=== PATIENT | male | born 1955 | race Caucasian/White ===

== ENCOUNTER → 2019-05-11 10:34 | Outpatient (CLI) | payer MEDICARE, SELFPAY ==
--- NOTE | 2019-05-11 10:38 | MR_ITS ---
PROCEDURE: MR HEAD/BRAIN WO/W CON CLINICAL INDICATION: MATHEW'S PALSY, HEADACHE Right-sided facial drooping, headache COMPARISON: No exams were available for comparison TECHNIQUE: Routine multiplanar multi echo sequences are performed without and with gadolinium enhancement. FINDINGS: No midline shift, mass effect, intracranial hemorrhage, or hydrocephalus is evident. No evidence of acute infarction. There is only minimal periventricular T2 white matter hyperintensity. Cerebellopontine angles, cerebellum, and brainstem are unremarkable. Mildly prominent draining vein is noted in the right anterior parietal lobe consistent with an incidental developmental venous anomaly. The pituitary, optic chiasm, corpus callosum, and craniocervical junction have an unremarkable appearance. No mastoid effusion or sinus air-fluid level. IMPRESSION: 1. No acute intracranial finding. 2. Small developmental venous anomaly in the right parietal lobe as an incidental finding Dictated by: Brent Onofre MD 05/12/2019 12:57 Electronically signed by Brent Onofre MD in [place] 05/12/2019 12:57
--- NOTE | 2019-05-11 11:32 | HMH.ITSHM ---
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 []ASPIRIN ATENOLOL ATORVASTATIN HYDROCHLOROTHIAZIDE ISOSORBIDE MONONITRATE MAGNESIUM MELOXICAM TAMSULOSIN TRAMADOL URINOZINE PLUS VITAMIN C
== END ==
PROVIDERS: PCP Internal Medicine Adolescent Medicine; Visit Provider Nurse Practitioner Family
DX: R51 Headache (principal); G51.0 Bell's palsy
CPT/HCPCS: 70553; A9576

== ENCOUNTER → 2020-03-07 08:51 | Outpatient (CLI) | payer MEDICARE, SELFPAY ==
--- NOTE | 2020-03-07 08:55 | XR_ITS ---
PROCEDURE: XR KNEE RT 3V CLINICAL INDICATION: R ANTERIOR KNEE PAIN COMPARISON: No exams were available for comparison FINDINGS: Mild osteoarthritic changes are present involving the medial compartment and patellofemoral joint. No fracture or dislocation. No lytic or blastic change. Nonspecific soft tissue calcification noted in the pretibial region proximally which could be due to phleboliths. IMPRESSION: Mild osteoarthritis. Dictated by: Brent Onofre MD 03/07/2020 17:42 Brent Onofre MD in [facility] 03/07/2020 17:42
== END ==
PROVIDERS: PCP Nurse Practitioner Family; Visit Provider Nurse Practitioner Family
DX: M25.561 Pain in right knee (principal)
CPT/HCPCS: 73562

== ENCOUNTER → 2020-06-30 08:48 | Outpatient (CLI) | payer MEDICARE, SELFPAY ==
--- NOTE | 2020-06-30 08:56 | XR_ITS ---
PROCEDURE: XR CHEST 2V CLINICAL HISTORY: SOB,CHEST PAIN AT REST COMPARISON: CR CXR CHEST(2 VIEWS-NOT PORTABLE) from 09/16/2014 CR CXR2V XR chest 2V from 07/18/2018 FINDINGS: The cardiomediastinal silhouette and pulmonary vascularity are within normal limits. COPD changes. No lobar consolidation or collapse evident. Increased density is present just to the left of the aortic knob and may be due to summation density from the overlying rib Degenerative changes thoracic spine IMPRESSION: No acute findings. Dictated by: Brent Onofre MD 06/30/2020 15:52 Brent Onofre MD in [facility] 06/30/2020 15:52
== END ==
PROVIDERS: PCP Internal Medicine Adolescent Medicine; Visit Provider Nurse Practitioner Family
DX: R06.02 Shortness of breath (principal); R07.9 Chest pain, unspecified
CPT/HCPCS: 71046

== ENCOUNTER → 2021-02-28 12:49 | Outpatient (CLI) | payer MEDICARE, SELFPAY ==
[2021-02-28 13:28] LABS: Basophils # 0.1 K/mm3 (0-0.2); Basophils % 0.6 % (0.1-2.0); Eosinophils # 0.1 K/mm3 (0.0-0.4); Eosinophils % 0.5 % (0.1-12.0); Hematocrit 46.3 % (42.0-52.0); Hemoglobin 15.4 g/dL (14.1-18.0); Lymphocytes # 2.1 K/mm3 (0.7-4.5); Lymphocytes % 20.7 % (10-50); Mean Corpuscular HGB Conc 33.3 g/dL (31.8-35.4); Mean Corpuscular Hemoglobin 31.3 pg (27.0-31.2); Mean Corpuscular Volume 94.2 fl (80-94); Mean Platelet Volume 7.2 fl (7.4-10.4); Monocytes # 0.5 K/mm3 (0.1-1.0); Monocytes % 4.8 % (1.7-9.3); Neutrophils # 7.5 K/mm3 (1.8-7.8); Neutrophils % 73.3 % (37.0-80.0); Platelet Count 194 K/mm3 (142-424); Red Blood Count 4.92 M/mm3 (4.60-6.20); Red Cell Distribution Width 13.9 % (11.5-17.5); White Blood Count 10.2 K/mm3 (4.8-10.8)
[2021-02-28 15:03] LABS: Chloride 97 mmol/L (98-107)
[2021-02-28 15:04] LABS: Potassium 4.3 mmoL/L (3.5-5.1); Sodium 136 mmol/L (136-145)
[2021-02-28 15:06] LABS: Alanine Aminotransferase 20 U/L (12-78); Alkaline Phosphatase 58 U/L (38-126); Anion Gap 14.3 mEq/L (5-15); Aspartate Amino Transferase 28 U/L (17-59); Bilirubin,Total 0.7 mg/dl (0.2-1.3); Blood Urea Nitrogen 34 mg/dl (9-20); Carbon Dioxide 29 mmol/L (22.0-30.0); Estimated Glomerular Filt Rate 61 ml/min (>60); GFR (African American) 73 ML/MIN (>60)
[2021-02-28 15:07] LABS: Albumin/Globulin Ratio 1.5 (1.1-1.8); Calcium 8.7 mg/dl (8.4-10.2); Globulin 2.6 g/dL (1.3-3.2); Glucose 110 mg/dl (74-100); Total Protein,Serum 6.6 g/dl (6.3-8.2)
[2021-02-28 15:35] LABS: Troponin I < 0.01 ng/ml (0.00-0.034)
== END ==
PROVIDERS: Visit Provider Nurse Practitioner Family
DX: R07.9 Chest pain, unspecified (principal); R06.02 Shortness of breath
CPT/HCPCS: 36415; 80053; 84484; 85025

== ENCOUNTER → 2021-03-09 08:47 | Outpatient (CLI) | payer MEDICARE, SELFPAY ==
--- NOTE | 2021-03-09 08:50 | FL_ITS ---
PROCEDURE: FL UPPER GI W AIR CLINICAL INDICATION: DYSPEPSIA COMPARISON: No exams were available for comparison TECHNIQUE: FLUOROSCOPY TIME : 1 minutes and 44 seconds FINDINGS: The esophagus, stomach, and duodenum have an unremarkable appearance.There is no evidence of hiatal hernia. No ulcer or mass evident. No mucosal abnormalities apparent. There is normal peristalsis. There is a small duodenal diverticulum projecting superiorly along the transverse portion of the duodenum IMPRESSION: Small duodenal diverticulum otherwise negative upper GI Dictated by: Brent Onofre MD 03/09/2021 12:35 Brent Onofre MD in [place] 03/09/2021 12:35
== END ==
PROVIDERS: PCP Internal Medicine Adolescent Medicine; Visit Provider Nurse Practitioner Family
DX: R10.13 Epigastric pain (principal)
CPT/HCPCS: 74246

== ENCOUNTER → 2021-06-01 08:51 | Outpatient (CLI) | payer MEDICARE, SELFPAY ==
[2021-06-01 09:41] LABS: Basophils # 0.1 K/mm3 (0-0.2); Basophils % 0.7 % (0.1-2.0); Eosinophils # 0.1 K/mm3 (0.0-0.4); Eosinophils % 0.8 % (0.1-12.0); Hemoglobin 15.4 g/dL (14.1-18.0); Lymphocytes # 2.3 K/mm3 (0.7-4.5); Lymphocytes % 19.4 % (10-50); Mean Corpuscular HGB Conc 32.8 g/dL (31.8-35.4); Mean Corpuscular Hemoglobin 31.6 pg (27.0-31.2); Mean Corpuscular Volume 96.3 fl (80-94); Mean Platelet Volume 7.6 fl (7.4-10.4); Monocytes # 0.8 K/mm3 (0.1-1.0); Monocytes % 6.5 % (1.7-9.3); Neutrophils # 8.8 K/mm3 (1.8-7.8); Neutrophils % 72.7 % (37.0-80.0); Platelet Count 179 K/mm3 (142-424); Red Blood Count 4.88 M/mm3 (4.60-6.20); Red Cell Distribution Width 13.9 % (11.5-17.5); White Blood Count 12.1 K/mm3 (4.8-10.8)
[2021-06-01 10:40] LABS: Alanine Aminotransferase 24 U/L (12-78); Albumin/Globulin Ratio 1.6 (1.1-1.8); Alkaline Phosphatase 54 U/L (38-126); Anion Gap 10.8 mEq/L (5-15); Aspartate Amino Transferase 26 U/L (17-59); Bilirubin,Total 0.8 mg/dl (0.2-1.3); Blood Urea Nitrogen 28 mg/dl (9-20); Calcium 9.2 mg/dl (8.4-10.2); Carbon Dioxide 31 mmol/L (22.0-30.0); Chloride 96 mmol/L (98-107); Chol/HDL Ratio 2.8 (1-3.5); Cholesterol 130 mg/dl (140-200); Estimated Glomerular Filt Rate 67 ml/min (>60); GFR (African American) 81 ML/MIN (>60); Globulin 2.5 g/dL (1.3-3.2); Glucose 99 mg/dl (74-100); HDL Cholesterol 46 mg/dl (40-60); Potassium 4.8 mmoL/L (3.5-5.1); Sodium 133 mmol/L (136-145); Total Protein,Serum 6.5 g/dl (6.3-8.2); Triglycerides 86 mg/dl (30-150); VLDL Cholesterol 17 mg/dL (0-40)
[2021-06-01 10:49] LABS: NT Pro Brain Natriuretic Pep. 82.8 pg/mL (0-125)
[2021-06-01 10:51] LABS: Direct LDL Cholesterol 69.45 mg/dL (100-129)
[2021-06-01 11:29] LABS: Vitamin B12 553 pg/mL (239-931)
== END ==
PROVIDERS: Visit Provider Nurse Practitioner Family
DX: I50.32 Chronic diastolic (congestive) heart failure (principal); I25.10 Atherosclerotic heart disease of native coronary artery without angina pectoris; I10 Essential (primary) hypertension; E53.8 Deficiency of other specified B group vitamins
CPT/HCPCS: 36415; 80053; 80061; 82607; 83880; 85025

== ENCOUNTER 2021-08-12 13:30 | Emergency (ER) | payer MEDICARE, SELFPAY ==
--- NOTE | 2021-08-12 13:30 | ECG_ITS ---
APPROVED REPORT Exam: Resting ECG HR:66 bpm ECG Measurements Heart Rate 66 AXES IN 165 P 12 QRSd 89 QRS -18 QT 380 T 42 QTc 393 Conclusion SINUS RHYTHM NORMAL ECG UNCONFIRMED REPORT Electronically signed by : Steven Keating MD 08/13/2021 15:33:21
[2021-08-12 13:32] VITALS: BP 128/78; PULSE 66; RESP 18; TEMP 36.9; O2SAT 97; BMI 42.5
[2021-08-12 13:36] VITALS: BMI 42.5
--- NOTE | 2021-08-12 13:36 | XR_ITS ---
PROCEDURE INFORMATION: Exam: XR Chest Exam date and time: 08/12/2021 1:36 PM Age: 66 years old Clinical indication: Pain; Left-sided; Additional info: Chest pain TECHNIQUE: Imaging protocol: XR of the chest. Views: 2 views. COMPARISON: CR XR CHEST 2V 06/30/2020 9:14 AM FINDINGS: Airway: Patent Lungs: Low lung volumes causes crowding of the bronchovascular structures. No acute interstitial or airspace disease. COPD/emphysema is appreciated. Pleural spaces: Unremarkable. No pleural effusion. No pneumothorax. Heart/Mediastinum: Unremarkable. No cardiomegaly. Bones/joints: No acute skeletal abnormality or aggressive osseous lesion. IMPRESSION: No acute thoracic pathology.
[2021-08-12 13:49] LABS: Chloride 98 mmol/L (98-107); Sodium 132 mmol/L (136-145)
[2021-08-12 13:52] LABS: Blood Urea Nitrogen 18 mg/dl (9-20); Carbon Dioxide 27 mmol/L (22.0-30.0); Creatinine Clearance Estimated 69 mL/min (50-200); Estimated Glomerular Filt Rate 75 ml/min (>60); GFR (African American) 90 ML/MIN (>60)
--- NOTE | 2021-08-12 13:52 | HMH.EDGENADL ---
ED Disposition Clinical Impression: Chest wall pain Disposition: Home, Self-Care Condition on Discharge: Good Instructions: DI for Atypical Chest Pain Prescriptions: methocarbamoL [Methocarbamol 500mg Tablet] 1,000 mg PO TID 10 Days #60 tab Transmission Status: Pending to [facility] Referrals: Provider,Referral, [Referring] - - Critical Care Critical Care Time: No Attestation: On 08/12/21, the high probability of a clinically significant, sudden or life threatening deterioration of the following system(s) required my full and direct attention, intervention and personal management. The time I documented below is in addition to time spent performing reported procedures but includes the following listed in this critical care notation. Medical Decision Making - Medical Records Medical records reviewed: Yes: I reviewed the patient's medical records. - Duarte Inquiry Pt receiving controlled substance: Yes Duarte was queried for this patient: No Reason not queried -: Duarte login issues Risks and benefits of using a controlled substance: were discussed with pt by me Vital Signs: 08/12/21 13:32 Temperature 98.5 F Temperature Source Oral Pulse Rate [Left Radial] 66 Respiratory Rate 18 Blood Pressure [Right Arm] 128/78 Blood Pressure Mean [Right Arm] 94 Blood Pressure Source [Right Arm] Automatic Cuff Blood Pressure Position [Right Arm] Sitting 02 Sat by Pulse Oximetry 97 Oxygen Delivery Method Room Air - Lab Data Lab Results 08/12/21 13:37: WBC 9.7, RBC 5.16, Hgb 16.3, Hct 49.4, MCV 95.8 H, MCH 31.5 H, MCHC 32.9, RDW 13.7, Plt Count 190, MPV 7.8, Neut % (Auto) 73.5, Lymph % (Auto) 19.1, [place] % (Auto) 5.4, Eos % (Auto) 1.0, Baso % (Auto) 1.0, Neut # (Auto) 7.2, Lymph # (Auto) 1.9, [place] # (Auto) 0.5, Eos # (Auto) 0.1, Baso # (Auto) 0.1 08/12/21 13:37: Sodium 132 L, Potassium 4.0, Chloride 98, Carbon Dioxide 27, Anion Gap 11.0, BUN 18, Creatinine 1.00, Estimated Creat Clear 69, Estimated GFR 75, Est GFR ( Amer) 90, Glucose 104 H, Calcium 8.6, Troponin I < 0.01 08/12/21 13:37: NT-Pro-B Natriuret Pep 74.5 Result diagrams: 08/12/21 13:37 08/12/21 13:37 Orders (Tests/Meds): ED MEDICATIONS Generic Name Dose Route Start Last Admin Trade Name Freq PRN Reason Stop Dose Admin Sodium Chloride 10 ml 08/12/21 13:36 08/12/21 13:45 Sodium Chloride 0.9% 10ml Flush Syringe IV 09/11/21 13:35 10 ml NEEDED PRN Administration Maintain IV Site Discontinued Medications Generic Name Dose Route Start Last Admin Trade Name Freq PRN Reason Stop Dose Admin Morphine Sulfate 4 mg 08/12/21 13:42 08/12/21 13:45 Morphine 4mg/Ml Syringe IV 08/12/21 13:43 4 mg ONCE ONE Administration Ondansetron HCl 4 mg 08/12/21 13:42 08/12/21 13:45 Ondansetron 4mg/2ml Vial IV 08/12/21 13:43 4 mg ONCE ONE Administration ORDERS Category Date Time Status Troponin I Q3H Lab 08/12/21 16:45 Ordered Troponin I Q3H Lab 08/12/21 19:45 Ordered - Radiology Data #1 Image(s): Chest Image Reviewed: Yes I reviewed the patient's radiology results, Yes I reviewed the patient's radiology image, Yes I have reviewed radiologist's interpretation Preliminary Findings: Normal/NAD - ECG Data Tracing #1 I reviewed this ECG and interpreted as documented below: ECG initial impression date: 08/12/21 ECG initial impression time: 13:30 ECG normal with no acute: arrhythmias, ischemia, conduction abnormalities, chamber hypertrophy Normal Sinus Rhythm: Yes - Reevaluation(s) Time: 14:40 Reevaluation #1: On reevaluation, the patient is feeling much better. Repeat exam shows improved pain. Negative troponin. No EKG changes. I do believe this is muscular in nature. Patient will follow up with his primary physician as well as cardiology. Given strict return precautions. Verbalized understanding. Medical Decision Narrative: 66-year-old male presented to the emergency d
[2021-08-12 13:53] LABS: Calcium 8.6 mg/dl (8.4-10.2); Glucose 104 mg/dl (74-100)
[2021-08-12 14:06] LABS: NT Pro Brain Natriuretic Pep. 74.5 pg/mL (0-125)
[2021-08-12 14:13] LABS: Troponin I < 0.01 ng/ml (0.00-0.034)
[2021-08-12 14:32] LABS: Basophils # 0.1 K/mm3 (0-0.2); Eosinophils # 0.1 K/mm3 (0.0-0.4); Hematocrit 49.4 % (42.0-52.0); Hemoglobin 16.3 g/dL (14.1-18.0); Lymphocytes # 1.9 K/mm3 (0.7-4.5); Lymphocytes % 19.1 % (10-50); Mean Corpuscular HGB Conc 32.9 g/dL (31.8-35.4); Mean Corpuscular Hemoglobin 31.5 pg (27.0-31.2); Mean Corpuscular Volume 95.8 fl (80-94); Mean Platelet Volume 7.8 fl (7.4-10.4); Monocytes # 0.5 K/mm3 (0.1-1.0); Monocytes % 5.4 % (1.7-9.3); Neutrophils # 7.2 K/mm3 (1.8-7.8); Neutrophils % 73.5 % (37.0-80.0); Platelet Count 190 K/mm3 (142-424); Red Blood Count 5.16 M/mm3 (4.60-6.20); Red Cell Distribution Width 13.7 % (11.5-17.5); White Blood Count 9.7 K/mm3 (4.8-10.8)
[2021-08-12 14:49] VITALS: BP 121/74; PULSE 68; RESP 18; TEMP 36.9; O2SAT 99
== END 2021-08-12 14:50 | disposition home or self-care (01) ==
PROVIDERS: Emergency Provider Emergency Medicine; PCP Nurse Practitioner Family
DX: R07.89 Other chest pain (principal); Z79.1 Long term (current) use of non-steroidal anti-inflammatories (NSAID); Z79.82 Long term (current) use of aspirin; Z79.899 Other long term (current) drug therapy
CPT/HCPCS: 71046; 80048; 83880; 84484; 85025; 93005; 96374; 96375; 99283; J2405

== ENCOUNTER 2021-12-25 18:24 | Emergency (ER) | payer MEDICARE, SELFPAY ==
[2021-12-25] VITALS (13 sets, daily range): BP systolic 101–134; BP diastolic 67–88; PULSE 66–81; RESP 16–20; TEMP 36.6–36.9; O2SAT 92–99; BMI 41.3
--- NOTE | 2021-12-25 18:17 | ECG_ITS ---
APPROVED REPORT Exam: Resting ECG HR:81 bpm ECG Measurements Heart Rate 81 AXES TN 161 P 65 QRSd 86 QRS -16 QT 358 T 13 QTc 396 Conclusion SINUS RHYTHM NORMAL ECG UNCONFIRMED REPORT Electronically signed by : Steven Keating MD 12/27/2021 21:04:54
--- NOTE | 2021-12-25 18:39 | XR_ITS ---
PROCEDURE INFORMATION: Exam: XR Chest Exam date and time: 12/25/2021 7:06 PM Age: 66 years old Clinical indication: Shortness of breath; Additional info: SOA, chest pressure TECHNIQUE: Imaging protocol: Radiologic exam of the chest. Views: 2 views. COMPARISON: CR XR CHEST 2V 08/12/2021 1:43 PM FINDINGS: Airway: Patent Lungs: Bilateral perihilar haziness and streaky-like opacities. Mild segmental bronchial wall thickening. No large airspace consolidations. Pleural spaces: Left costophrenic angle not completely included. No large pleural effusions or pneumothorax. Heart/Mediastinum: Unremarkable. No cardiomegaly. Bones/joints: No acute skeletal abnormality or aggressive osseous lesion. IMPRESSION: Acute bronchitis/mild viral illness. No evidence of lobar pneumonia at this time.
[2021-12-25 18:51] LABS: Chloride 101 mmol/L (98-107); Sodium 137 mmol/L (136-145)
[2021-12-25 18:52] LABS: Basophils # 0.1 K/mm3 (0-0.2); Basophils % 0.4 % (0.1-2.0); Eosinophils % 0.4 % (0.1-12.0); Hematocrit 48.7 % (42.0-52.0); Hemoglobin 16.7 g/dL (14.1-18.0); Lymphocytes # 2.3 K/mm3 (0.7-4.5); Mean Corpuscular HGB Conc 34.3 g/dL (31.8-35.4); Mean Corpuscular Hemoglobin 31.6 pg (27.0-31.2); Mean Corpuscular Volume 92.2 fl (80-94); Mean Platelet Volume 7.5 fl (7.4-10.4); Monocytes # 0.8 K/mm3 (0.1-1.0); Monocytes % 6.3 % (1.7-9.3); Neutrophils % 73.9 % (37.0-80.0); Platelet Count 102 K/mm3 (142-424); Red Blood Count 5.29 M/mm3 (4.60-6.20); Red Cell Distribution Width 13.8 % (11.5-17.5); White Blood Count 12.2 K/mm3 (4.8-10.8)
[2021-12-25 18:54] LABS: Blood Urea Nitrogen 22 mg/dl (9-20); Creatinine Clearance Estimated 72 mL/min (50-200); Estimated Glomerular Filt Rate 75 ml/min (>60); GFR (African American) 90 ML/MIN (>60)
[2021-12-25 18:55] LABS: Calcium 9.3 mg/dl (8.4-10.2); Carbon Dioxide 29 mmol/L (22.0-30.0); Glucose 140 mg/dl (74-100)
[2021-12-25 19:09] LABS: Troponin I 0.57 ng/ml (0.00-0.034)
--- NOTE | 2021-12-25 19:10 | PC.NURSE ---
notified of critical troponin
[2021-12-25 19:54] LABS: NT Pro Brain Natriuretic Pep. 3340 pg/mL (0-125)
[2021-12-25 20:35] LABS: Influenza B, PCR Not Detected (NotDetected)
[2021-12-25 20:37] LABS: Influenza A, PCR Not Detected (NotDetected)
--- NOTE | 2021-12-25 20:37 | HMH.EDCP ---
ED Disposition Clinical Impression: Unstable angina pectoris, Non-STEMI (non-ST elevated myocardial infarction), COVID-19 Syncopal episodes Qualifiers: Syncope type: unspecified Qualified Code(s): R55 - Syncope and collapse Obesity Qualifiers: Obesity type: due to excess calories Obesity classification: adult class 3 (BMI >= 40) Serious obesity comorbidity presence: with serious comorbidity Body mass index: BMI 40.0-44.9 Qualified Code(s): E66.01 - Morbid (severe) obesity due to excess calories; Z68.41 - Body mass index [BMI] 40.0-44.9, adult Disposition: Xfer Short-Term Hosp Condition on Discharge: Serious Referrals: Mali Hancock APRN [Primary Care Provider] - - Critical Care Critical Care Time: No Attestation: On 12/25/21, the high probability of a clinically significant, sudden or life threatening deterioration of the following system(s) required my full and direct attention, intervention and personal management. The time I documented below is in addition to time spent performing reported procedures but includes the following listed in this critical care notation. Medical Decision Making - Medical Records Medical records reviewed: Yes: I reviewed the patient's medical records. - Duarte Inquiry Pt receiving controlled substance: No Vital Signs: 12/25/21 18:25 12/25/21 18:30 12/25/21 19:00 Temperature 97.8 F Temperature Source Oral Pulse Rate 81 70 Pulse Rate [Left Radial] 80 Respiratory Rate 18 17 18 Blood Pressure 101/70 L 113/72 Blood Pressure [Right Arm] 110/77 Blood Pressure Mean 82 80 Blood Pressure Mean [Right Arm] 88 Blood Pressure Source [Right Arm] Automatic Cuff Blood Pressure Position [Right Arm] Sitting 02 Sat by Pulse Oximetry 97 95 96 Oxygen Delivery Method Room Air - Lab Data Lab results reviewed: Yes: I reviewed the patient's lab results. Lab Results 12/25/21 18:25: WBC 12.2 H, RBC 5.29, Hgb 16.7, Hct 48.7, MCV 92.2, MCH 31.6 H, MCHC 34.3, RDW 13.8, Plt Count 102 L, MPV 7.5, Neut % (Auto) 73.9, Lymph % (Auto) 19.0, [place] % (Auto) 6.3, Eos % (Auto) 0.4, Baso % (Auto) 0.4, Neut # (Auto) 9.0 H, Lymph # (Auto) 2.3, [place] # (Auto) 0.8, Eos # (Auto) 0.0, Baso # (Auto) 0.1 12/25/21 18:25: Sodium 137, Potassium 4.0, Chloride 101, Carbon Dioxide 29, Anion Gap 11.0, BUN 22 H, Creatinine 1.00, Estimated Creat Clear 72, Estimated GFR 75, Est GFR ( Amer) 90, Glucose 140 H, Calcium 9.3, Troponin I 0.57 H 12/25/21 18:25: NT-Pro-B Natriuret Pep 3340 H 12/25/21 20:35: SARS-CoV-2 (PCR) Detected A, Influenza A Untype (PCR) Not detected, Influenza Type B (PCR) Not detected Result diagrams: 12/25/21 18:25 12/25/21 18:25 Orders (Tests/Meds): ED MEDICATIONS Generic Name Dose Route Start Last Admin Trade Name Freq PRN Reason Stop Dose Admin Heparin Sodium/Dextrose 500 mls @ 20 mls/hr 12/25/21 21:45 Heparin 25,000 Units In D5w 500ml Premix IV 01/24/22 21:44 .Q25H KENNETH 1,000 UNITS/HR Sodium Chloride 10 ml 12/25/21 18:40 Sodium Chloride 0.9% 10ml Flush Syringe IV 01/24/22 18:39 NEEDED PRN Maintain IV Site Discontinued Medications Generic Name Dose Route Start Last Admin Trade Name Freq PRN Reason Stop Dose Admin Aspirin 243 mg 12/25/21 19:29 12/25/21 19:46 Aspirin 81mg Chewable Tablet PO 12/25/21 19:30 243 mg ONCE ONE Administration Heparin Sodium (Porcine) 4,000 unit 12/25/21 21:45 Heparin Sodium 5,000 Unit/Ml Vial IV 12/25/21 21:46 ONCE ONE Nitroglycerin 1 gm 12/25/21 20:53 12/25/21 20:54 Nitroglycerin 1 Gm Ointment TD 12/25/21 20:54 1 gm ONCE ONE Administration ORDERS Category Date Time Status Activated Partial Thrombo Time Stat Lab 12/25/21 18:25 Received PT/INR [Prothrombin Time INR] Stat Lab 12/25/21 18:25 Received PTT [Activated Partial Thrombo Time] Stat Lab 12/25/21 21:34 Stop Req Troponin I Q3H Lab 12/25/21 21:45 Ordered Troponin I Q3H Lab 12/26/21 00:45 Ordered
[2021-12-25 21:17] LABS: Coronavirus 19, PCR Detected (NotDetected)
--- NOTE | 2021-12-25 21:21 | PC.NURSE ---
Spoke with Kamila from the [facility] she is paging Dr. Noe Paul at this time
--- NOTE | 2021-12-25 21:26 | PC.NURSE ---
ER speaking with Dr. Lee at this time
--- NOTE | 2021-12-25 21:45 | PC.NURSE ---
[facility] center called with bed assignment for pt. [facility]IC. Call [phone].
--- NOTE | 2021-12-25 21:46 | PC.NURSE ---
Called night watch, s/w Soniya, for Heparin bolus and gtt dosing. Bolus 4,000 units IVP, gtt 1,000 units /hr (20ml/hr)
[2021-12-25 21:52] LABS: Activated Partial Thrombo Time 27.9 seconds (22.8-30.6); INR 1.03 (0.9-1.1); Prothrombin Time 11.6 seconds (10.1-12.5)
--- NOTE | 2021-12-25 22:15 | PC.NURSE ---
Report given to Alisa @ [facility]
[2021-12-25 23:00] LABS: Troponin I 0.36 ng/ml (0.00-0.034)
== END 2021-12-25 23:41 | disposition short-term general hospital (02) ==
PROVIDERS: Emergency Medicine; Emergency Provider Emergency Medicine; PCP Nurse Practitioner Family
DX: U07.1 COVID-19 (principal); I20.0 Unstable angina; I21.4 Non-ST elevation (NSTEMI) myocardial infarction; E66.01 Morbid (severe) obesity due to excess calories; Z68.41 Body mass index [BMI] 40.0-44.9, adult; Z79.82 Long term (current) use of aspirin; Z79.899 Other long term (current) drug therapy
CPT/HCPCS: 71046; 80048; 83880; 84484; 85025; 85610; 85730; 93005; 96365; 96366; 96375; 99284; C9803; U0003; U0005

== ENCOUNTER 2023-12-27 04:04 | Inpatient (IN) | payer MEDICARE, SELFPAY ==
[2023-12-27] VITALS (11 sets, daily range): BP systolic 121–190; BP diastolic 70–106; PULSE 71–117; RESP 18–20; TEMP 36.7–38.4; O2SAT 93–98; BMI 35.6
--- OUTSIDE RECORDS SUMMARY | 2023-12-27 04:12 | XMS_ITS | Clinical Summary ---
Author Name Unknown Address [address] [place] [address] Phone Organization [facility] Address [address] [place] [address] Phone Care Team Providers Care Bottle Booth Attendant Name Role Phone Bernabe STOKES, Thiago Martinez [phone] Conditions or Problems No information available. Medications No information available. Medications Administered No information available. Allergies, Adverse Reactions, Alerts No information available. Results No information available. Plan of Care No information available. Procedures No information available. Vital Signs No information available. Immunizations No information available. Advance Directives No information available.
--- OUTSIDE RECORDS SUMMARY | 2023-12-27 04:12 | XMS_ITS ---
Author Name Unknown Organization 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 Gr. >=1.030 Ketone neg Bili neg Glucose 500mg COMPREHENSIVE METABOLIC PANE L (23234) Reviewed date:12/25/2023 10:23:45 AM Interpretation: Performing Lab:CB, [facility] [address], [id number] Lito Tobar Notes/Report: NON-FASTING; NON-FASTING; NON-FASTING GLUCOSE 81 65-99 mg/dL Fasting reference interval UREA NITROGEN (BUN) 10 7-25 mg/dL CREATININE 0.65 0.70-1.35 mg/dL EGFR 102 > OR = 60 mL/min/1.73m2 BUN/CREATININE RATIO 15 6-22 (calc) SODIUM 139 135-146 mmol/L POTASSIUM 3.5 3.5-5.3 mmol/L CHLORIDE 101 98-110 mmol/L CARBON DIOXIDE 26 20-32 mmol/L CALCIUM 8.9 8.6-10.3 mg/dL PROTEIN, TOTAL 6.1 6.1-8.1 g/dL ALBUMIN 3.6 3.6-5.1 g/dL GLOBULIN 2.5 1.9-3.7 g/dL (calc) ALBUMIN/GLOBULIN RATIO 1.4 1.0-2.5 (calc) BILIRUBIN, TOTAL 1.0 0.2-1.2 mg/dL ALKALINE PHOSPHATASE 56 35-144 U/L AST 15 10-35 U/L ALT 12 9-46 U/L CBC (INCLUDES DIFF/PLT) (639 9) Reviewed date:12/25/2023 10:23:45 AM Interpretation: Performing Lab:[email or web address], [id number] Lito Tobar Notes/Report: NON-FASTING; NON-FASTING; NON-FASTING WHITE BLOOD CELL COUNT 7.3 3.8-10.8 Thousand/ uL RED BLOOD CELL COUNT 4.33 4.20-5.80 Million/uL HEMOGLOBIN 13.1 13.2-17.1 g/dL HEMATOCRIT 42.7 38.5-50.0 % MCV 98.6 80.0-100.0 fL MCH 30.3 27.0-33.0 pg MCHC 30.7 32.0-36.0 g/dL RDW 14.9 11.0-15.0 % PLATELET COUNT 192 140-400 Thousand/uL MPV 10.1 7.5-12.5 fL ABSOLUTE NEUTROPHILS [phone] cells/uL ABSOLUTE LYMPHOCYTES 3788 724-2937 cells/uL ABSOLUTE MONOCYTES 482 200-950 cells/uL ABSOLUTE EOSINOPHILS 190 15-500 cells/uL ABSOLUTE BASOPHILS 37 0-200 cells/uL NEUTROPHILS 67.1 LYMPHOCYTES 23.2 MONOCYTES 6.6 EOSINOPHILS 2.6 BASOPHILS 0.5 CULTURE, URINE, ROUTINE (395 ) Reviewed date:12/25/2023 10:23:45 AM Interpretation: Performing Lab:[email or web address] [employer], [id number] Lito Tobar Notes/Report: NON-FASTING; NON-FASTING; NON-FASTING CULTURE, URINE, ROUTINE SEE NOTE CULTURE, URINE, ROUTINE Micro Number: [id number] Test Status: Final Specimen Source: Urine, clean catch Specimen Quality: Adequate Result: No Growth REASON FOR VISIT hospital f/u discharged 12/18/2023 from [facility], dysuria, fluid build-up MEDICATIONS Medication SIG (Take, Route, Frequency, Duration) Notes Start Date End Date Status Vitamin C 500 mg 2 cap orally once a day Active Tylenol 500 mg 2 tab(s) orally prn Active nitroglycerin 0.4 mg 1 tab(s) sublingual ly every 5 minutes prn for 30 days Active cyclobenzaprine 5 mg 1 tab(s) orally at HS for 2 weeks 08/16/2016 Active Syringe 1cc 28g 06/11 - for 30 days 03/13/2021 Active carvedilol 6.25 mg 1 tab(s) orally 2 ti mes a day Active Jardiance 25 mg 1 tab(s) orally once a day (in the morning) Active Flomax 0.4MG 1 capsule orally onc e a day for 90 days Active Lipitor 40 mg 1 tab(s) orally once a day for 90 days Active Dodex 1000 mcg/mL INJECT 1000MCG (1ML) INTRAMUSCULARLY ONCE A MONTH for 90 Active Xarelto 20 mg TAKE 1 TABLET ONE TI ME DAILY WITH FOOD for 90 Active omeprazole 20 mg 2 caps orally once a day for 90 days Active traMADol 50 mg 1 tab(s) orally 3 ti mes a day prn for 90 days prn 02/14/2023 Active isosorbide mononitrate 60 mg TAKE ONE TABLET BY MOUTH EVERY DAY orally once a day for 90 days Active VITAL SIGNS Temperature 97.4 degrees Fahrenheit 12/23/19 24 Blood pressure systolic 144 mm Hg 12/23/19 24 Blood pressure diastolic 82 mm Hg 024 Heart Rate 78 /min 12/23/2023 Height 5 ft 9 in in 12/23/2023 Weight 247.7 lbs 12/23/2023 BMI 36.57 kg/m2 12/23/2023 Encounters Encounter Location Date Provider Diagnosis [facility] [address] [place] [address] 12/23/2023 Mali Hancock Dysuria R30.0 and Chronic diastolic CHF (congestive heart failure) I50.32 ASSESSMENTS Encounter Date Diagnosis Assessment Notes Treatment Notes Treatment Clinical Notes 12/23/2023 Dysuria (ICD-10 - R30.0) UA reveals small amount of blood in urine. Due to patient's dysuria, ordered urine culture for further work-up. Will follow up and intervene as needed. 12/23/2023 Chronic diastolic CHF (congestive heart failure) (ICD-10 - I50.32) Prescibed diuretic PRN for leg edema. PLAN OF TREATMENT Treatment Notes Assessment Notes Dysuria UA reveals small teresa unt of blood in urine. Due to patient's dysuria, ordered urine culture for further work-up. Will follow up and intervene as needed. Chronic diastolic CHF (conge stive heart failure) Prescibed diuretic PRN for leg edema. Next Appt Details Follow Up: 4 Weeks,prn, Reas on: Provider Name:Steven Keating, 03/03/2024 09:45:00 AM, [address] [address], [place], [address], Progress Notes * Nazario KWON RDOB: (68 yo M)Acc No.[id number]:12/23/2023 HOSP F/U Patient:??CHERNazario Provider:??MAYRA Valadez :1955?Age:68 Y?Sex:Ma le Date:12/23/2023 Address:[address] [facility] [address] [place] [facility] [id number] Pcp:Steven Keating Subjective: * Chief Complaints: * ?1. hospital f/u discha rged 12/18/2023 from [facility]. 2. Dysuria. 3. Fluid build-up. * HPI: ?gen:? Mr. Kwon is a 68 year old male with a history of PE, CHF, CAD, HLD, and HTN presenting for a follow-up after being discharged from [facility] on 12/17 with new dysuria complaints. Overall, he reports he is doing better since being home and has finished all antibiotics. Patient states he has not had any changes to any medications. He reports new dysuria but denies macroscopic hematuria, blood in stool, nausea/vomiting, or abdominal pain. ?Patient also reports swelling in his feet. He has been working in the [employer] the past couple days during high heat but states he drinks about 5 bottles of water every night. * ROS:?FUNCTIONAL STATUS:?ADLS??Independent for all ADL/IADL.?CARDIOLOGY:?See HPI??Leg edema.?GASTROENTEROLOGY:?Reviewed, No Symptoms Reported:??Yes.?UROLOGY:?See HPI??Dysuria.? * Medical History:??Hypertensi on, Hypercholestrolemia, degenerative disc disease s/p surgery. On tramadol, coronary artery disease-stents. Evaluated by Dr Redman September 2016, negative GXT with EF 48%, B12 def, BPH, Colonoscopy 2016, Dr Sullivan, Tubular Adenoma and Focal inflammation - Repeated August 2023 at [facility]- hyperplastic polyp, LHC 2018, chronic CAD, no additional intervention needed, Carbon Palsy, DVT and PE during COVID 19 infection. * Surgical History:??back surg shahrzad 2012, appendectomy, open 2014, cardiac stents in 1997 , colonoscopy 2016, zo cataract 2018, heart cath 09/2018, hernia repair 10/2018, Colonoscopy and EGD AUGUST 2023, gallbladder, drain tube 11/02/2023. * Hospitalization/Major Diagno stic Procedure:??all above surgeries , DVT, PE, COVID 19 12/2021, [facility]- abdomen pain, infection 10/28-, [facility] - Syncope 11/17-04/2024, [facility] - Syncope, infection in blood 11/18-, [facility]-infection in kidneys 12/2023. * Family History:??Father: dec eased, hypertension.??Mother: , coronary artery disease, DM, diagnosed with Cancer.??Paternal Grand Father: , stroke, diagnosed with Hypertension, Stroke.??Paternal Grand Mother: , diagnosed with Hypertension, Stroke.??Maternal Grand Father: , stroke, diagnosed with Hypertension, Stroke.??Maternal Grand Mother: , diagnosed with Hypertension, Stroke.??Paternal uncle: .??Paternal aunt: .??Maternal uncle: alive, alzheimers, HTN.??Maternal aunt: , alzheimers, HTN.??Siblings: alive, Arthritissister-uterine cancer, diagnosed with Hypertension, Cancer.??Children: alive.??1 sister(s) - healthy. 1 son(s) , 1 daughter(s) - healthy. .?? Paternal Aunts, 1 had a stroke and 1 with high blood pressure, 1 aunt with cancer\\nMaternal Aunt with Alzheimers\\nMaternal Uncle with Cirrhosis of the Liver. * Social History:??Smoking??Ar e chung a:: former smoker , How long has it been since you last smoked?: > 10 years, Additional Findings: Tobacco User: Chews tobacco.??Recreational drug use: no. Exercise: yes, walking. Home smoke detector use: yes. Caffeine: yes, frequency:coffee 2 cups daily. Living Will: Yes. Alcohol: socially. Sexually active: yes. Travel outside [place]: no. Occupation: disabled. * Medications:??Taking carvedi lol 6.25 mg tablet 1 tab(s) orally 2 times a day , Taking Jardiance 25 mg tablet 1 tab(s) orally once a day (in the morning) , Taking Tylenol 500 mg tablet 2 tab(s) orally prn , Taking Vitamin C 500 mg capsule 2 cap orally once a day , Taking cyclobenzaprine 5 mg tablet 1 tab(s) orally at HS , Taking Syringe 1cc 28g 1/2 - , Taking nitroglycerin 0.4 mg tablet 1 tab(s) sublingually every 5 minutes prn , Taking isosorbide mononitrate 60 mg tablet, extended release TAKE ONE TABLET BY MOUTH EVERY DAY orally once a day , Taking omeprazole 20 mg delayed release capsule 2 caps orally once a day , Taking traMADol 50 mg tablet 1 tab(s) orally 3 times a day prn , Notes to Pharmacist: prn, Taking Dodex 1000 mcg/mL solution INJECT 1000MCG (1ML) INTRAMUSCULARLY ONCE A MONTH , Taking Xarelto 20 mg tablet TAKE 1 TABLET ONE TIME DAILY WITH FOOD , Taking Flomax 0.4MG capsule 1 capsule orally once a day , Taking Lipitor 40 mg tablet 1 tab(s) orally once a day , Discontinued amoxicillin-clavulanate 875 mg-125 mg tablet as directed orally every 12 hours , Medication List reviewed and reconciled with the patient * Allergies:??N.K.D.A. Objective: * Vitals:??Nurse: ashly, Pain: 0, Temp: 97.4, RR: 20, HR: 78, BP: 144/82, Ht: 5 ft 9 in, Wt: 247.7, BMI:36.57. * Examination: ?General Examination: ?General??Pleasant and Cooperative, NAD on RA.?Heart:??RRR, No m/r/g/h, Nl S1S2.?Lungs:??LCTAB, No wheezes, crackles or rhonchi, Good air movement.?Abdomen:??soft, NT/ND, BS present. No organomegaly.?Neurologic Exam:??Alert and oriented x 3.?Peripheral pulses:??normal (2+) bilaterally.?Extremities:??Slight swelling of ankles around sock line. No pitting edema.? Assessment: * Assessment: 1.??Dysuria - R30.0 (Primary )??2.??Chronic diastolic CHF (congestive heart failure) - I50.32?? Plan: * Treatment: ? Value Reference Range ?GLUCOSE 81 65-99 - mg /dL * ?UREA NITROGEN (BUN) 10 7-25 - mg/dL * ?CREATININE 0.65 L 0.70-1. 35 - mg/dL * ?BUN/CREATININE RATIO 15 6-22 - (calc) * ?SODIUM 139 135-146 - m mol/L * ?POTASSIUM 3.5 3.5-5.3 - mmol/L * ?CHLORIDE 101 98-110 - mmol/L * ?CARBON DIOXIDE 26 20- 32 - mmol/L * ?CALCIUM 8.9 8.6-10.3 - mg/dL * ?PROTEIN, TOTAL 6.1 6.1 -8.1 - g/dL * ?ALBUMIN 3.6 3.6-5.1 - g/dL * ?GLOBULIN 2.5 1.9-3.7 - g/dL (calc) * ?ALBUMIN/GLOBULIN RATIO 1.4 1.0-2.5 - (calc) * ?BILIRUBIN, TOTAL 1.0 0 .2-1.2 - mg/dL * ?ALKALINE PHOSPHATASE 56 35-144 - U/L * ?AST 15 10-35 - U/L * ?ALT 12 9-46 - U/L * ?EGFR 102 > OR = 60 - m L/min/1.73m2 * Roel Kwon R 12/25/2023 1 0:22:24 AM EDT > pt notified ?LAB: CBC (INCLUDES DIFF/PLT) (2190) (Collection Date & Time - 12/23/2023 11:19 AM)* ? Value Reference Range ?WHITE BLOOD CELL COUNT 7.3 3.8-10.8 - Thousand/uL * ?RED BLOOD CELL COUNT 4.33 4.20-5.80 - Million/uL * ?HEMOGLOBIN 13.1 L 13.2-17 .1 - g/dL * ?HEMATOCRIT 42.7 38.5-50 .0 - % * ?MCV 98.6 80.0-100.0 - f L * ?MCH 30.3 27.0-33.0 - pg * ?MCHC 30.7 L 32.0-36.0 - g /dL * ?RDW 14.9 11.0-15.0 - % * ?PLATELET COUNT 192 140 -400 - Thousand/uL * ?NEUTROPHILS 67.1 - % * ?ABSOLUTE NEUTROPHILS 4898 1061-2402 - cells/uL * ?LYMPHOCYTES 23.2 - % * ?ABSOLUTE LYMPHOCYTES 0036 477-9029 - cells/uL * ?MONOCYTES 6.6 - % * ?ABSOLUTE MONOCYTES 482 200-950 - cells/uL * ?EOSINOPHILS 2.6 - % * ?ABSOLUTE EOSINOPHILS 190 15-500 - cells/uL * ?BASOPHILS 0.5 - % * ?ABSOLUTE BASOPHILS 37 0-200 - cells/uL * ?MPV 10.1 7.5-12.5 - fL * Roel Kwon 12/25/2023 1 0:22:24 AM EDT > pt notified ?LAB: CULTURE, URINE, ROUTINE (395) (Collection Date & Time - 12/23/2023 11:19 AM)* ? Value Reference Range ?CULTURE SEE NOTE - * Roel Kwon 12/25/2023 1 0:22:24 AM EDT > pt notified ?LAB: Urinalysis (Collection Date & Time - 12/23/2023)* ? Value Reference Range ?Color/Clarity yellow * ?Leuk neg * ?Nitrite neg * ?Urobili 0.2 * ?Protein neg * ?pH 7.0 * ?Blood small * ?Sp. Gr. >=1.030 * ?Ketone neg * ?Bili neg * ?Glucose 500mg * CorwinPhongtegan Dill 12/23/2023 10: 58:06 AM EDT > Notes: UA reveals small amount of blood in urine. Due to patient's dysuria, ordered urine culture for further work-up. Will follow up and intervene as needed.?2.??Chronic diastolic CHF (congestive heart failure)?? Notes: Prescibed diuretic PRN for leg edema. ? * Procedure Codes:??62437 URIN ALYSIS, Modifiers: QW * Follow Up:??4 Weeks,prn * * Sign off status: Pending * Provider:??MAYRA Valadez Date: ??12/23/2023 History and Physical Notes * Examination Category Sub-Category Detail Notes General Examination Heart: RRR, No m/r/ g/h, Nl S1S2 Lungs: LCTAB, No wheezes, c rackles or rhonchi, Good air movement Abdomen: soft, NT/ND, BS pres ent. No organomegaly Extremities: Slight swelling of a nkles around sock line. No pitting edema Neurologic Exam: Alert and oriented x 3 Peripheral pulses: normal (2+) bilatera lly General Pleasant and Coopera tive, NAD on RA
--- OUTSIDE RECORDS SUMMARY | 2023-12-27 04:13 | XMS_ITS ---
Author Name Unknown Organization [facility] Address [address] [place] [address] Care Team Providers Care Communications Professional Name Role Phone Steven Keating Primary Care Provider Mali Hancock Unavailable [phone] ALLERGIES No Known Allergies RESULTS Component Value Reference Range Notes THYROID PANEL WITH TSH (7444 ) Reviewed date:12/05/2023 03:48:44 PM Interpretation: Performing Lab:ELENA Etix-[address] Energye[address] PPLCONNECTteRepunch, [id number] Lito Tobar Notes/Report: NON-FASTING; NON-FASTING; NON-FASTING; NON-FASTING; NON-FAST FASTING:YES FASTING: YES T3 UPTAKE 32 22-35 % T4 (THYROXINE), TOTAL 9.1 4.9-10.5 mcg/dL FREE T4 INDEX (T7) 2.9 1.4-3.8 TSH 0.31 0.40-4.50 mIU/L LIPID PANEL, STANDARD (7600) Reviewed date:12/05/2023 03:48:44 PM Interpretation: Performing Lab:ELENA Agitare1355 PPLCONNECTtel BookitNow!, OptensityLikqLJ[address] Lito Tobar Notes/Report: NON-FASTING; NON-FASTING; NON-FASTING; NON-FASTING; NON-FAST FASTING:YES FASTING: YES CHOLESTEROL, TOTAL 149 <200 mg/dL HDL CHOLESTEROL 38 > OR = 40 mg/dL TRIGLYCERIDES 132 <150 mg/dL LDL-CHOLESTEROL 88 Reference range: <100 Desirable range <100 mg/dL for primary prevention; <70 mg/dL for patients with CHD or diabetic patients with > or = 2 CHD risk factors. LDL-C is now calculated using the Sandy calculation, which is a validated novel method providing better accuracy than the Friedewald equation in the estimation of LDL-C. Jad WILLIAM et al. DEVON. 2013;310(19): 0794-3282 (http://education.[employer].PriceMatch/faq/FAQ16 4) CHOL/HDLC RATIO 3.9 <5.0 (calc) NON HDL CHOLESTEROL 111 <130 mg/dL (calc) For patients with diabetes plus 1 major ASCVD risk factor, treating to a non-HDL-C goal of <100 mg/dL (LDL-C of <70 mg/dL) is considered a therapeutic option. COMPREHENSIVE METABOLIC PANCeleste Kidd (51619) Reviewed date:12/05/2023 03:48:44 PM Interpretation: Performing Lab:ELENA Etix-Domen[facility] Lee[address] [facility], Domenico GironOxqdLS[address] Lito Tobar Notes/Report: NON-FASTING; NON-FASTING; NON-FASTING; NON-FASTING; NON-FAST FASTING:YES FASTING: YES GLUCOSE 108 65-99 mg/dL Fasting reference interval For someone without known diabetes, a glucose value between 100 and 125 mg/dL is consistent with prediabetes and should be confirmed with a follow-up test. UREA NITROGEN (BUN) 14 7-25 mg/dL CREATININE 0.79 0.70-1.35 mg/dL EGFR 96 > OR = 60 mL/min/1.73m2 BUN/CREATININE RATIO SEE NOTE: 6-22 (calc) Not Reported: BUN and Creatinine are within reference range. SODIUM 140 135-146 mmol/L POTASSIUM 4.7 3.5-5.3 mmol/L CHLORIDE 102 98-110 mmol/L CARBON DIOXIDE 28 20-32 mmol/L CALCIUM 9.5 8.6-10.3 mg/dL PROTEIN, TOTAL 6.7 6.1-8.1 g/dL ALBUMIN 4.0 3.6-5.1 g/dL GLOBULIN 2.7 1.9-3.7 g/dL (calc) ALBUMIN/GLOBULIN RATIO 1.5 1.0-2.5 (calc) BILIRUBIN, TOTAL 0.6 0.2-1.2 mg/dL ALKALINE PHOSPHATASE 71 35-144 U/L AST 15 10-35 U/L ALT 12 9-46 U/L MAGNESIUM (622) Reviewed date:12/05/2023 03:48:44 PM Interpretation: Performing Lab:ELENA Etix-[address]roll Hqnt[address] [facility], Essentia HealthIqoiWY[address] Lito Tobar Notes/Report: NON-FASTING; NON-FASTING; NON-FASTING; NON-FASTING; NON-FAST FASTING:YES FASTING: YES MAGNESIUM 2.1 1.5-2.5 mg/dL CBC (INCLUDES DIFF/PLT) (639 9) Reviewed date:12/05/2023 03:48:44 PM Interpretation: Performing Lab:ELENA Et[facility]-[address] [employer] PPLCONNECTtel [facility], [facility]ent[facility] HealthKkgdOP[address] Lito Tobar Notes/Report: NON-FASTING; NON-FASTING; NON-FASTING; NON-FASTING; NON-FAST FASTING:YES FASTING: YES WHITE BLOOD CELL COUNT 9.3 3.8-10.8 Thousand/ uL RED BLOOD CELL COUNT 4.90 4.20-5.80 Million/uL HEMOGLOBIN 14.8 13.2-17.1 g/dL HEMATOCRIT 45.8 38.5-50.0 % MCV 93.5 80.0-100.0 fL MCH 30.2 27.0-33.0 pg MCHC 32.3 32.0-36.0 g/dL RDW 14.4 11.0-15.0 % PLATELET COUNT 177 140-400 Thousand/uL MPV 9.9 7.5-12.5 fL ABSOLUTE NEUTROPHILS 6129 7476-6210 cells/uL ABSOLUTE LYMPHOCYTES 2176 850-3900 cells/uL ABSOLUTE MONOCYTES 679 200-950 cells/uL ABSOLUTE EOSINOPHILS 270 15-500 cells/uL ABSOLUTE BASOPHILS 47 0-200 cells/uL NEUTROPHILS 65.9 LYMPHOCYTES 23.4 MONOCYTES 7.3 EOSINOPHILS 2.9 BASOPHILS 0.5 VITAMIN B12/FOLATE, SERUM PA JACQUE (1527) Reviewed date:12/05/2023 03:48:45 PM Interpretation: Performing Lab:ELENA Etix-Playroll Loyf[address] [facility], Essent[facility] HealthIgraKV[address] Lito Tobar Notes/Report: NON-FASTING; NON-FASTING; NON-FASTING; NON-FASTING; NON-FAST FASTING:YES FASTING: YES VITAMIN B12 911 511-8582 pg/mL FOLATE, SERUM 10.7 Reference Range Low: <3.4 Borderline: 3.4-5.4 Normal: >5.4 REASON FOR VISIT 1 wk f/u, Medicare wellness update, leg cramps MEDICATIONS Medication SIG (Take, Route, Frequency, Duration) Notes Start Date End Date Status Xarelto 20 mg TAKE 1 TABLET ONE TI ME DAILY WITH FOOD for 90 Active Dodex 1000 mcg/mL INJECT 1000MCG (1ML) INTRAMUSCULARLY ONCE A MONTH for 90 Active Lipitor 40 mg 1 tab(s) orally once a day for 90 days Active Flomax 0.4MG 1 capsule orally onc e a day for 90 days Active omeprazole 20 mg 2 caps orally once a day for 90 days Active traMADol 50 mg 1 tab(s) orally 3 ti mes a day prn for 90 days prn 02/14/2023 Active isosorbide mononitrate 60 mg TAKE ONE TABLET BY MOUTH EVERY DAY orally once a day for 90 days Active nitroglycerin 0.4 mg 1 tab(s) sublingual ly every 5 minutes prn for 30 days Active Tylenol 500 mg 2 tab(s) orally prn Active Jardiance 25 mg 1 tab(s) orally once a day (in the morning) Active cyclobenzaprine 5 mg 1 tab(s) orally at HS for 2 weeks 08/16/2016 Active Vitamin C 500 mg 2 cap orally once a day Active Syringe 1cc 28g 06/11 - for 30 days 03/13/2021 Active amoxicillin-clavulanate 875 mg-125 mg as directed orally every 12 hours Active carvedilol 6.25 mg 1 tab(s) orally 2 ti mes a day Active IMMUNIZATIONS Vaccine Route Administration Date Status Comme nts Boostrix IM Intramuscular 12/03/2023 Administered SHINGRIX IM Intramuscular 12/03/2023 Administered VITAL SIGNS Temperature 97.8 degrees Fahrenheit 12/03/19 24 Blood pressure systolic 118 mm Hg 12/03/19 24 Blood pressure diastolic 78 mm Hg 024 Heart Rate 72 /min 12/03/2023 Height 5 ft 9 in in 12/03/2023 Weight 242 lbs 12/03/2023 BMI 35.73 kg/m2 12/03/2023 Encounters Encounter Location Date Provider Diagnosis [facility] [address] [address] 12/03/2023 Steven Keating Essential hypertensi on I10 ; Hyperlipidemia, unspecified E78.5 ; Coronary artery disease involving [place] coronary artery of [place] heart without angina pectoris I25.10 ; B12 deficiency E53.8 ; Myalgia M79.10 ; Routine medical exam Z00.00 ; Encounter for immunization Z23 and Encounter for immunization Z23 ASSESSMENTS Encounter Date Diagnosis Assessment Notes Treatment Notes Treatment Clinical Notes 12/03/2023 Essential hypertension (ICD-10 - I10) Blood pressure under good control. No changes in plan. 12/03/2023 Hyperlipidemia, unspecified (ICD-10 - E78.5) Check lipids. I will review personally. 12/03/2023 Coronary artery disease involving [place] coronary artery of [place] heart without angina pectoris (ICD-10 - I25.10) On appropriate therapy, blood pressure good control, make sure lipid is at tight target 12/03/2023 B12 deficiency (ICD-10 - E53.8) Check B12 deficiency given his mild myalgia 12/03/2023 Myalgia (ICD-10 - M79.10) Discussed with patient that it would be better for him to stay off NSAIDs given heart disease and his kidney issues. Recheck kidney function. Recommended continue Voltaren use. As needed Tylenol use. He is also seeing his orthopedist next week, injections may be a good option for him to continue 12/03/2023 Routine medical exam (ICD-10 - Z00.00) Medicare HRA reviewed. Immunizations will be updated. Up-to-date with colonoscopy. Non-smoker. 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 Excellent functional status, no falls. No concerning alcohol use. Uses seatbelt in a safe health habits 12/03/2023 Encounter for immunization (ICD-10 - Z23) 12/03/2023 Encounter for immunization (ICD-10 - Z23) PLAN OF TREATMENT Treatment Notes Assessment Notes Essential hypertension Blood pressure un fracisco good control. No changes in plan. Hyperlipidemia, unspecified Check lipids . I will review personally. Coronary artery disease invo lving twin [place] coronary artery of [place] heart without angina pectoris On appropriate therapy, blood pressure good control, make sure lipid is at tight target B12 deficiency Check B12 deficiency given his mild myalgia Myalgia Discussed with patient that it would be better for him to stay off NSAIDs given heart disease and his kidney issues. Recheck kidney function. Recommended continue Voltaren use. As needed Tylenol use. He is also seeing his orthopedist next week, injections may be a good option for him to continue Routine medical exam Medicare HRA reviewed. Immunizations will be updated. Up-to-date with colonoscopy. Non-smoker. 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 Excellent functional status, no falls. No concerning alcohol use. Uses seatbelt in a safe health habits Pending Test Test Name Order Date VITAMIN D,25-OH,TOTAL,IA (59291) 024 Next Appt Details Follow Up: 3 Months, Reason: Provider Name:Steven Keatnig, 03/03/2024 09:45:00 AM, [address], [address], Progress Notes * Nazario KWON RDOB: (68 yo M)Acc No.[id number]:12/03/2023 Progress Notes Patient:??Nazario KWON R Provider:??Steven Keating MD :1955?Age:68 Y?Sex:Ma le Date:12/03/2023 Address[address] [id number] Subjective: * Chief Complaints: * ?1. 1 wk f/u. 2. Medica re wellness update. 3. Leg cramps. * HPI: ?gen:? Patient here to follow-up his 1 week visit after his hospitalization for significant sepsis, abdominal infection with ruptured gallbladder and status post cholecystectomy. ?He is also due for Medicare wellness exam-he filled out HRA form and I reviewed this personally with him. No concerns about mental health issues. No falls, depression screening negative. He has a very good outlook on his health over the past several weeks. ?Otherwise feels great. He does think he is having a bit of knee pain since he stopped meloxicam after hospitalization. Has questions about how to deal with this. * ROS:?FUNCTIONAL STATUS:?ADLS??Independent for all ADL/IADL.?RESPIRATORY:?Shortness of breath??yes.??no??Chest pain.??no??Chest congestion.??no??Cough.?CARDIOLOGY:?See HPI??Yes.??no??Chest pain.??no??Palpitations.?CONSTITUTIONAL:?no??Loss of appetite.??no??Fever.?DERMATOLOGY:?no??Rash.?GASTROENTEROLOGY:?Vomiting??yes.??Constipation??yes,??using miralax and metamucil daily with 2-3 BM per day.??no??Blood in stool.?MUSCULOSKELETAL:?See HPI??Yes.?NEUROLOGY:?no??Tingling numbness.??no??Seizures.??no??Insomnia.??no??Memory loss.??no??Dizziness.?PSYCHOLOGY:?Reviewed, No Symptoms Reported:??Yes.?UROLOGY:?no??Difficulty urinating.??no??Blood in urine.? * Medical History:??Hypertensi on, Hypercholestrolemia, degenerative disc disease s/p surgery. On tramadol, coronary artery disease-stents. Evaluated by Dr Redman September 2016, negative GXT with EF 48%, B12 def, BPH, Colonoscopy 2016, Dr Sullivan, Tubular Adenoma and Focal inflammation - Repeated August 2023 at [facility]-1 hyperplastic polyp, LHC 2018, chronic CAD, no additional intervention needed, [place] Palsy, DVT and PE during COVID 19 [...] 11/17-04/2024, [facility] - Syncope, infection in blood 11/18-. * Family History:??Father: dec eased, hypertension.??Mother: , [...] of the Liver. * Social History:??Smoking??Ar e you a:: former smoker , How long has [...] orally 2 times a day , Taking amoxicillin-clavulanate 875 mg-125 mg tablet as directed orally every 12 hours , Taking Jardiance 25 mg tablet 1 [...] tab(s) orally once a day , Discontinued furosemide 40 mg tablet 1 tab(s) orally once a day , Discontinued potassium chloride 10 mEq capsule, extended release 1 cap(s) orally once a day , Medication List reviewed and reconciled with the patient * Allergies:??N.K.D.A. Objective: * Vitals:??Nurse: meg, Temp: 97 .8, RR: 20, HR: 72, BP: 118/78, Ht: 5 ft 9 in, Wt: 242, BMI:35.73. * Examination: ?General Examination: ?General??Pleasant and Cooperative, NAD on RA,.?Heart:??Regular Rate and Rhythm, no murmur, rubs or gallops.?HEENT:??pharynx and tonsils normal, TM's normal.?Lungs:??LCTAB, No wheezes, crackles or rhonchi, Good air movement,.?Abdomen:??soft, NT/ND, BS present -?Scars well-healing.? No drainage..?Neurologic Exam:??no focal signs,, normal sensation, strength, tone and reflexes,, Alert and oriented x 3.?Skin:??without acute rashes.? Assessment: * Assessment: 1.??Essential hypertension - I10 (Primary)??2.??Hyperlipidemia, unspecified - E78.5??3.??Coronary artery disease involving [place] coronary artery of [place] heart without angina pectoris - I25.10??4.??B12 deficiency - E53.8??5.??Myalgia - M79.10??6.??Routine medical exam - Z00.00??7.??Encounter for immunization - Z23??8.??Encounter for immunization - Z23?? Plan: * Treatment: 2.??Hyperlipidemia, unspecif ied?LAB: THYROID PANEL WITH TSH (6644) ?LAB: LIPID PANEL, STANDARD (1050) ?LAB: COMPREHENSIVE METABOLIC PANEL (50371) ?LAB: MAGNESIUM (622) ?LAB: CBC (INCLUDES DIFF/PLT) (8147) ?LAB: VITAMIN B12/FOLATE, SERUM PANEL (1742) ?LAB: VITAMIN D,25-OH,TOTAL,IA (63004) Notes: Check lipids. I will review personally.? 3.??Coronary artery disease involving [place] coronary artery of [place] heart without angina pectoris?LAB: THYROID PANEL WITH TSH (7444) ?LAB: LIPID PANEL, STANDARD (7600) ?LAB: COMPREHENSIVE METABOLIC PANEL (14508) ?LAB: MAGNESIUM (622) ?LAB: CBC (INCLUDES DIFF/PLT) (6399) ?LAB: VITAMIN B12/FOLATE, SERUM PANEL (7065) ?LAB: VITAMIN D,25-OH,TOTAL,IA (64269) Notes: On appropriate therapy, blood pressure good control, make sure lipid is at tight target? 4.??B12 deficiency?LAB: THYROID PANEL WITH TSH (7444) ?LAB: LIPID PANEL, STANDARD (7600) ?LAB: COMPREHENSIVE METABOLIC PANEL (48629) ?LAB: MAGNESIUM (622) ?LAB: CBC (INCLUDES DIFF/PLT) (6399) ?LAB: VITAMIN B12/FOLATE, SERUM PANEL (7065) ?LAB: VITAMIN D,25-OH,TOTAL,IA (89624) Notes: Check B12 deficiency given his mild myalgia? 5.??Myalgia?LAB: THYROID PANEL WITH TSH (7444) ?LAB: LIPID PANEL, STANDARD (7600) ?LAB: COMPREHENSIVE METABOLIC PANEL (25900) ?LAB: MAGNESIUM (622) ?LAB: CBC (INCLUDES DIFF/PLT) (6399) ?LAB: VITAMIN B12/FOLATE, SERUM PANEL (7800) ?LAB: VITAMIN D,25-OH,TOTAL,IA (28649) Notes: Discussed with patient that it would be better for him to stay off NSAIDs given heart disease and his kidney issues. Recheck kidney function. Recommended continue Voltaren use. As needed Tylenol use. He is also seeing his orthopedist next week, injections may be a good option for him to continue? 6.??Routine medical exam?? Notes: Medicare HRA reviewed. Immunizations will be updated. Up-to-date with colonoscopy. Non-smoker. 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 Excellent functional status, no falls. No concerning alcohol use. Uses seatbelt in a safe health habits? * Immunizations:? Boostrix : .5 mL (Dose No:1) (Route: Intramuscular) given by ISAURO Schmidt on Left Deltoid? SHINGRIX (Dose No:1) (Route: Intramuscular) given by ISAURO Schmidt on Right Deltoid (Encounter for immunization) * Procedure Codes:??55338 Kristi trix, 65953 immunization administration through 18 years of age via any route of administration., 34133 SHINGRIX, 42169 ADMINISTRATION IMMUNIZATION ONE VACCINE, G0439 ANNUAL WELLNESS VST; PPS SUBSQT VST, 1170F FUNCTIONAL STATUS ASSESSMENT, 1123F ADVANCED DIRECTIVE - HAS A LIVING WILL, 3017F COLORECTAL CA SCREEN DOC REV, G8417 BMI >=30 CALCUATE W/FOLLOWUP, G8510 NEGATIVE SCREENING F/U NOT REQUIRED, G9903 Pt scrn tbco id as non user, 1036F TOBACCO NON-USER, G8752 Most recent systolic blood pressure < 140mmhg, G8754 Most recent diastolic blood pressure < 90mmhg, G9744 PATIENT NOT ELIG D/T ACTIVE DX HTN * Preventive Medicine:?HARVINDER Screening:??Falls: Future screening for fall risks??Have you had two or more falls in the past year???No,??Have you had any falls with injury in the past year???No.?Depression Screening:??PHQ 2??Feeling down depressed or hopeless??No.?Immunizations:??Tetanus??.??Pneumococcal??.??Influenza??.??Shingrix??Due and initiated today.??RSV vaccination??Completed for season.?Screening / Special Tests:??Colonoscopy??UTD.??Alcohol Screen??Did you have a drink containing alcohol in the past year???No.??Lung Cancer Screening??Not indicated - nonsmoker.?? * Follow Up:??3 Months * * Sign off status: Completed true * Provider:??Steven Keating MD Butch e:??12/03/2023 History and Physical Notes * Examination Category Sub-Category Detail Notes General Examination HEENT: pharynx and tonsils normal, TM's normal Heart: Regular Rate and Rhy thm, no murmur, rubs or gallops Lungs: LCTAB, No wheezes, c rackles or rhonchi, Good air movement, Abdomen: soft, NT/ND, BS pres ent - Scars well-healing. No drainage. Skin: without acute rashes Neurologic Exam: no focal signs,, nor mal sensation, strength, tone and reflexes,, Alert and oriented x 3 General Pleasant and Coopera tive, NAD on RA,
--- OUTSIDE RECORDS SUMMARY | 2023-12-27 04:13 | XMS_ITS ---
Author Name Unknown Organization [facility] Address [address] [place] [address] Care Team Providers Care Vice President Consulting Services Name Role Phone Steven Keating Primary Care Provider Karissa Maliestela Martinez [phone] Encounters Encounter Location Date Provider Diagnosis [facility] [address] [place] [address] 12/20/2023 Steven Keating PLAN OF TREATMENT Next Appt Details Provider Name:Steven Keating, 03/03/2024 09:45:00 AM, [address] [place] [address], [id number], Progress Notes * Nazario KWON RDOB: (68 yo M)Acc No.[id number]:12/20/2023 Patient:??Nazario KWON :1955?Age:68 Y?Sex:Gavin carnes Address:[address] [place] [place] [address] * true * Date:??
--- NOTE | 2023-12-27 04:17 | CT_ITS ---
PROCEDURE INFORMATION: Exam: CT Abdomen And Pelvis With Contrast Exam date and time: 12/27/2023 5:13 AM Age: 68 years old Clinical indication: Fever; Additional info: Fever, right flank pain, recent ccy, TECHNIQUE: Imaging protocol: Computed tomography of the abdomen and pelvis with contrast. Radiation optimization: All CT scans at this facility use at least one of these dose optimization techniques: automated exposure control; mA and/or kV adjustment per patient size (includes targeted exams where dose is matched to clinical indication); or iterative reconstruction. Contrast material: ISOVUE; Contrast volume: 75 ml; Contrast route: IV; COMPARISON: No relevant prior studies available. FINDINGS: Heart: Aortic valve calcifications. Coronary arteries: Coronary atherosclerosis. Liver: Normal. No mass. Gallbladder and biliary ducts: The gallbladder is contracted, probable dependent stone is noted. Pancreas: Normal. No ductal dilation. Spleen: Normal. No splenomegaly. Adrenal glands: Normal. No mass. Kidneys and ureters: Multiple left intrarenal stones are noted measuring up to 5 mm in diameter. No hydronephrosis hydroureter or urolithiasis is present. Stomach and bowel: Sigmoid diverticulosis without diverticulitis. Appendix: No evidence of appendicitis. Intraperitoneal space: Unremarkable. No free air. No significant fluid collection. Vasculature: Unremarkable. No abdominal aortic aneurysm. Lymph nodes: Unremarkable. No enlarged lymph nodes. Urinary bladder: Unremarkable as visualized. Reproductive: Unremarkable as visualized. Bones/joints: Unremarkable. No acute fracture. Soft tissues: Unremarkable. IMPRESSION: 1. Nonobstructing left-sided nephrolithiasis. 2. Probable contracted gallbladder containing gallstone, correlate with clinical history. This could represent a cystic duct remnant if the patient has had a prior cholecystectomy. Right upper quadrant ultrasound may also be helpful.
[2023-12-27 04:26] LABS: Coronavirus 19, PCR Not Detected (NotDetected); Influenza A, PCR Not Detected (NotDetected); Influenza B, PCR Not Detected (NotDetected)
[2023-12-27 04:34] LABS: Basophils % 0.6 % (0.1-2.0); Eosinophils # 0.1 K/mm3 (0.0-0.4); Eosinophils % 1.8 % (0.1-12.0); Hematocrit 43.9 % (42.0-52.0); Hemoglobin 14.4 g/dL (14.1-18.0); Lymphocytes # 0.4 K/mm3 (0.7-4.5); Lymphocytes % 10.4 % (10-50); Mean Corpuscular HGB Conc 32.7 g/dL (31.8-35.4); Mean Corpuscular Hemoglobin 31.5 pg (27.0-31.2); Mean Corpuscular Volume 96.2 fl (80-94); Mean Platelet Volume 7.8 fl (7.4-10.4); Monocytes # 0.1 K/mm3 (0.1-1.0); Monocytes % 2.3 % (1.7-9.3); Neutrophils # 3.4 K/mm3 (1.8-7.8); Platelet Count 223 K/mm3 (142-424); Red Blood Count 4.56 M/mm3 (4.60-6.20); Red Cell Distribution Width 15.5 % (11.5-17.5)
[2023-12-27 04:36] LABS: MANUAL DIFFERENTIAL MANUAL DIFFERENTIAL (MANUAL DIFF)
[2023-12-27 04:39] LABS: Chloride 107 mmol/L (98-107); Sodium 139 mmol/L (136-145)
[2023-12-27 04:40] LABS: Potassium 3.8 mmoL/L (3.5-5.1)
[2023-12-27] MEDS: LACTATED RINGERS 1000ML 1,000 ML 999 ML IV (04:40)
[2023-12-27] MEDS: ACETAMINOPHEN 500MG TAB 1000 MG PO (04:40)
[2023-12-27] MEDS: PIPERACILLIN/TAZO 4.5 GM in 0.9 % SODIUM CHLORIDE 100 ML IV (04:40)
[2023-12-27 04:42] LABS: Alanine Aminotransferase 24 U/L (12-78); Alkaline Phosphatase 78 U/L (38-126); Aspartate Amino Transferase 28 U/L (17-59); Bilirubin,Total 0.9 mg/dl (0.2-1.3); Blood Urea Nitrogen 9 mg/dl (9-20); Creatinine Clearance Estimated 108 mL/min (50-200); Estimated Glomerular Filt Rate 112 ml/min (>60); GFR (African American) 135 ML/MIN (>60)
[2023-12-27 04:43] LABS: Albumin Level 3.7 g/dl (3.5-5.0); Albumin/Globulin Ratio 1.3 (1.1-1.8); Anion Gap 10.8 mEq/L (5-15); Carbon Dioxide 25 mmol/L (22.0-30.0); Globulin 2.8 g/dL (1.3-3.2); Glucose 124 mg/dl (74-100); Total Protein,Serum 6.5 g/dl (6.3-8.2)
[2023-12-27 04:49] LABS: Lactic Acid 3.2 mmol/L (0.7-2.1)
--- NOTE | 2023-12-27 04:49 | PC.NURSE ---
EMS notified of need to transfer to [facility] for CT scan
[2023-12-27 04:54] LABS: Microscopic, Urine URINE MICROSCOPIC (MICROSCOPIC)
[2023-12-27 04:57] LABS: Appearance,Urine CLEAR (Clear); Bilirubin,Urine Negative (Negative); Blood, Urine 2+ (Negative); Color,Urine YELLOW (Yellow); Glucose,Urine (UA) 3+ (Negative); Ketones,Urine Negative (Negative); Leukocyte Esterase,Urine TRACE (Negative); Nitrate,Urine POSITIVE (Negative); Protein,Urine TRACE (Negative); Urobilinogen,Urine 0.2 EU/dl (0.2)
[2023-12-27 05:05] LABS: Bacteria,Urine 3+ /lpf
--- NOTE | 2023-12-27 05:12 | PC.NURSE ---
As EMS arrived. [facility] updated staff that the ct scan process server should be working correctly now and pt will have scan completed at [facility].
--- NOTE | 2023-12-27 05:13 | HMH.EDGENADL ---
Discharge Plan Disposition Patient Disposition: Admitted Clinical Impressions Clinical Impression: Pyelonephritis Discharge ED Provider: Indra Chiu General Adult HPI General Chief complaint: Fever Stated complaint: high bp Time Seen by Provider: 12/27/23 04:10 Mode of Arrival: Wheelchair Source of Information: Patient Limitations: No Limitations Description of Symptoms (Recalled from ER Triage Doc. by RN): Pt presents to ED for elevated BP and shaking Pt has an extensive health history. Pt was recently admitted at [facility] for sepsis. Pt is A&O*4. Family is bedside. History of Present Illness HPI narrative: 68-year-old male with history of hypertension hyperlipidemia coronary artery disease obesity oxygen dependent since he had COVID presents for chills and fever. He reports that last month he had a bad gallbladder and had taken out at [place]. He was septic at that time. He was discharged and then came back with recurrent infection secondary to gallbladder. He was discharged again and came back with a kidney infection and went to [facility]. He was told he had kidney stones at that time but did not have any procedures done. He has been home for a week or so and now has left flank pain and chills and htn. He denies any right upper quadrant pain. Denies any nausea vomiting or abdominal pain. Related Data Home Medications Medication Instructions Recorded Confirmed aspirin 81 mg tablet,delayed 81 mg PO DAILY heart health 07/18/18 12/25/21 release atenolol 50 mg tablet 50 mg PO DAILY Hypertension 07/18/18 12/25/21 atorvastatin 40 mg tablet 40 mg PO DAILY Cholesterol 07/18/18 12/25/21 furosemide 20 mg tablet 20 mg PO DAILY Edema 07/18/18 12/25/21 hydrochlorothiazide 12.5 mg capsule 12.5 mg PO DAILY Edema 07/18/18 12/25/21 isosorbide mononitrate 60 mg 60 mg PO DAILY Hypertension 07/18/18 12/25/21 tablet,extended release 24 hr meloxicam 15 mg tablet 15 mg PO DAILY spasm 07/18/18 12/25/21 rjcpzbtsu-nfq-siwkjf complex 100 mg PO HS prostate 07/18/18 12/25/21 #[id number] 100 mg tablet tamsulosin 0.4 mg capsule 0.4 mg PO HS prostate 07/18/18 12/25/21 tramadol 50 mg tablet 50 mg PO TID PRN Moderate Pain 07/18/18 12/25/21 ascorbic acid (vitamin C) 1,000 mg 1,000 mg PO DAILY Supplement 12/25/21 12/25/21 tablet cholecalciferol (vitamin D3) 125 125 mcg PO WEEKLY Supplement 12/25/21 12/25/21 mcg (5,000 unit) capsule cyanocobalamin (vitamin B-12) 1,000 mcg IM WEEKLY Supplement 12/25/21 12/25/21 1,000 mcg/mL injection solution famotidine 40 mg tablet 40 mg PO DAILY GERD 12/25/21 12/25/21 magnesium oxide 400 mg (241.3 mg 400 mg PO DAILY Supplement 12/25/21 12/25/21 magnesium) tablet Allergies Allergy/AdvReac Type Severity Reaction Status Date / Time No Known Drug Allergies Allergy Unknown Verified 11/10/18 11:17 [facility] Disclaimer: The information contained in this section may have been updated after the patient was seen, as this information can be updated by other users. Social History Smoking Status: Unknown if ever smoked second hand exposure: No alcohol intake: current alcohol intake frequency: holidays/special occasions only substance use type: denies use current occupational status: retired and disabled Travel in the last 8 weeks: None household members: spouse housing: house current occupational exposures/hazards: No caffeine: Yes ROS Obtained: Yes All systems reviewed & no additional complaints except as documented Physical Exam General General appearance: alert and in no apparent distress Head Head exam: atraumatic and normocephalic Eye Eye exam: Present normal appearance, PERRL and EOMI ENT ENT exam: Present normal oropharynx and normal external ear exam Neck Neck exam: Present normal inspection and full ROM Chest Chest inspection: Present normal inspection and symmetric chest wall rise; Absent tenderness Respiratory Respiratory exam: Present normal lung sounds bilaterally; Absent respiratory distress Cardiovascular Cardiovascular exam: Present normal rhythm and tachycardia Abdominal Exam Abdominal exam: Present soft; Absent distention, tenderness or guarding Extremities Exam Extremities exam: Present normal inspection; Absent edema or joint swelling Back Exam Back exam: Present normal inspection and CVA tenderness (L) Neurological Exam Neurological exam: Present alert and oriented X3; Absent motor sensory deficit Psychiatric Psychiatric exam: Present normal affect and normal mood Skin Skin exam: Present warm, dry and normal color Lymphatic Lymphatic Findings: no adenopathy Medical Decision Making Medical Records Medical records reviewed: Yes I reviewed the patient's medical records. Duarte Inquiry Pt receiving controlled substance: No Duarte was queried for this patient: No Vital Signs: 12/27/23 04:04 12/27/23 04:12 12/27/23 04:23 Temperature 101.1 F H Temperature Source Oral Oral Pulse Rate 117 H Pulse Rate [Left] 117 H Respiratory Rate 20 Blood Pressure 190/106 H Blood Pressure [Right Arm] 190/106 H Blood Pressure Mean [Right Arm] 134 02 Sat by Pulse Oximetry 95 95 Oxygen Delivery Method Nasal Cannula Oxygen Flow Rate (LPM) 2 12/27/23 04:30 12/27/23 05:00 12/27/23 05:30 Temperature Temperature Source Pulse Rate 109 H 109 H 98 H Pulse Rate [Left] Respiratory Rate Blood Pressure 170/91 H 180/96 H 164/81 H Blood Pressure [Right Arm] Blood Pressure Mean [Right Arm] 02 Sat by Pulse Oximetry 95 94 L 93 L Oxygen Delivery Method Oxygen Flow Rate (LPM) 12/27/23 06:01 12/27/23 06:35 Temperature 99.9 F H Temperature Source Oral Pulse Rate 98 H 96 H Pulse Rate [Left] Respiratory Rate 18 Blood Pressure 134/78 130/73 Blood Pressure [Right Arm] Blood Pressure Mean [Right Arm] 02 Sat by Pulse Oximetry 94 L Oxygen Delivery Method Nasal Cannula Oxygen Flow Rate (LPM) Lab Data Lab results reviewed: Yes I reviewed the patient's lab results. Lab Results 12/27/23 04:20: SARS-CoV-2 (PCR) Not detected, Influenza A Untype (PCR) Not detected, Influenza Type B (PCR) Not detected 12/27/23 04:24: WBC 4.0 L, RBC 4.56 L, Hgb 14.4, Hct 43.9, MCV 96.2 H, MCH 31.5 H, MCHC 32.7, RDW 15.5, Plt Count 223, MPV 7.8, Neut % (Auto) 85.0 H, Lymph % (Auto) 10.4, [place] % (Auto) 2.3, Eos % (Auto) 1.8, Baso % (Auto) 0.6, Neut # (Auto) 3.4, Lymph # (Auto) 0.4 L, [place] # (Auto) 0.1, Eos # (Auto) 0.1, Baso # (Auto) 0.0, Total Counted 100, Neutrophils % (Manual) 89 H, Lymphocytes % (Manual) 9 L, Eosinophils % (Manual) 1, Metamyelocytes % 1, RBC Morphology Normal, Stomatocytes 1+, Sodium 139, Potassium 3.8, Chloride 107, Carbon Dioxide 25, Anion Gap 10.8, BUN 9, Creatinine 0.70, Estimated Creat Clear 108, Estimated GFR 112, Est GFR ( Amer) 135, Glucose 124 H, Lactate 3.2 H, Calcium 9.0, Total Bilirubin 0.9, AST 28, ALT 24, Alkaline Phosphatase 78, Total Protein 6.5, Albumin 3.7, Globulin 2.8, Albumin/Globulin Ratio 1.3 12/27/23 04:48: Urine Color Yellow, Urine Appearance Clear, Urine pH 6.0, Ur Specific [place] 1.020, Urine Protein Trace, Urine Glucose (UA) 3+, Urine Ketones Negative, Urine Blood 2+, Urine Nitrate Positive, Urine Bilirubin Negative, Urine Urobilinogen 0.2, Ur Leukocyte Esterase Trace, Urine RBC 5-10, Urine WBC 10-20, Ur Squamous Epith Cells 3-5, Urine Bacteria 3+ 12/27/23 04:24 12/27/23 04:24 Orders (Tests/Meds): ED MEDICATIONS Generic Name Dose Route Start Last Admin Trade Name Freq PRN Reason Stop Dose Admin Acetaminophen 650 mg 12/27/23 06:28 Acetaminophen 325mg Tab PO 01/26/24 06:27 Q4HP PRN Fever or Mild Pain (1-3) Sodium Chloride 1,000 mls @ 999 mls/hr 12/27/23 06:28 Sod Chlor 0.9% 1000ml Bag IV 12/27/23 07:28 .Q1H1M ONE Piperacillin Sod/Tazobactam 50 mls @ 100 mls/hr 12/27/23 12:00 Sod 3.375 gm/ Sodium Chloride IV 01/06/24 11:59 Q8H KENNETH Ondansetron HCl 4 mg 12/27/23 06:28 Ondansetron 4mg/2ml Vial IV 01/26/24 06:27 Q6HP PRN Nausea Sodium Chloride 10 ml 12/27/23 06:28 Sodium Chloride 0.9% 10ml Syr (Rad Only) IV 01/26/24 05:41 NEEDED PRN Maintain IV Site Discontinued Medications Generic Name Dose Route Start Last Admin Trade Name Tawanda PRN Reason Stop Dose Admin Acetaminophen 1,000 mg 12/27/23 04:17 12/27/23 04:40 Acetaminophen 500mg Tab PO 12/27/23 04:18 1,000 mg ONCE ONE Administration Heparin Sodium (Porcine) 5,000 unit 12/27/23 06:28 Heparin Sodium 5,000 Unit/Ml Vial SQ 01/26/24 06:27 Q12H KENNETH Piperacillin Sod/Tazobactam 100 mls @ 200 mls/hr 12/27/23 04:17 12/27/23 04:40 Sod 4.5 gm/ Sodium Chloride IV 12/27/23 04:46 200 mls/hr ONCE ONE Administration Lactated Ringer's 1,000 mls @ 999 mls/hr 12/27/23 04:30 12/27/23 04:40 Lactated Ringer's 1000 Ml Bag IV 12/27/23 05:30 999 mls/hr .Q1H1M KENNETH Administration Iopamidol 75 ml 12/27/23 05:42 12/27/23 05:43 Iopamidol-370 (76%);100ml Bottle IV 12/27/23 05:43 75 ml ONCE ONE Administration Sodium Chloride 10 ml 12/27/23 05:42 12/27/23 05:43 Sodium Chloride 0.9% 10ml Syr (Rad Only) IV 01/26/24 05:41 10 ml NEEDED PRN Administration Maintain IV Site ORDERS Category Date Time Status CT abdomen pelvis w con Stat Cat Scan 12/27/23 04:17 Taken Basic Metabolic Panel AMLAB Lab 12/28/23 06:00 Ordered CBC w/Auto Diff [Complete Blood Count Auto Diff] Stat Lab 12/27/23 04:24 Completed CMP [Comprehensive Metabolic Panel] Stat Lab 12/27/23 04:24 Completed Complete Blood Count Auto Diff AMLAB Lab 12/28/23 06:00 Ordered Lactic Acid Routine Lab 12/27/23 08:00 Ordered Lactic Acid Stat Lab 12/27/23 04:24 Completed Rapid PCR Covid and Flu A/B Stat Lab 12/27/23 04:20 Completed UA [Urinalysis and Microscopic] Stat Lab 12/27/23 04:48 Completed Blood Culture Stat Micro 12/27/23 04:24 Received Urine Culture Stat Micro 12/27/23 04:48 Received Tissue Perfus/Sepsis Re-Eval Sepsis Re-Evaluation Performed: Yes Date Performed: 12/27/23 Time Performed: 06:42 Medical Decision Narrative: 68 year old male with hx as documented above presents for fever, tachycardia, flank pain. History was obtained via interactive discussion with patient, family. On arrival, patient is [febrile, mildly tachycardic, hemodynamically stable, satting appropriately, alert, oriented x4, GCS 15], moving all extremities spontaneously. Full physical exam performed and significant for left flank tenderness. Differential includes but is not limited to pyelonephritis, septic stone, intraabdominal infection, bacteremia, covid, flu, etc Patient was given zosyn, 1 liter bolus for symptomatic management and correction of underlying abnormalities. does not require full sepsis bolus as he is not dehydrated. Workup initiated including cbc, cmp, blood cultures, ua urine culture ct abd On re-evaluation, patient tachy resolved. Laboratory workup independently interpreted by me and significant for urine consistent with infection, mildly elevated lactate, no leukocytosis Imaging independently interpreted by me and significant for no hydronephrosis, no ureteral calculi. there remains some stranding in the gallbladder fossa, though patient has no RUQ pain. See radiology read for full review of final results. Given patient history, exam and workup, patient's presentation most likely represents acute recurrent pyelonephritis. Interactive discussion had with hospitalist automation and controls supervisor for admission. Procedures Risk/Benefits of Procedure(s) Were Explained: Yes Critical Care Critical Care Time Critical Care Time: No
--- NOTE | 2023-12-27 05:14 | PC.NURSE ---
pt to ct scan
[2023-12-27 05:16] LABS: Eosinophils % 1 % (0-3); Lymphocytes % 9 % (10-50); Metamyelocytes % 1 (0-1); Neutrophils % 89 % (42-76); RBC Morphology Normal; Stomatocytes 1+
[2023-12-27 05:17] LABS: Total Cells Counted 100
[2023-12-27] MEDS: SODIUM CHLORIDE 0.9% 10ML SYR (RAD ONLY) 10 ML IV (05:43)
[2023-12-27] MEDS: IOPAMIDOL-370 (76%);100ML BOTTLE 75 ML IV (05:43)
--- NOTE | 2023-12-27 06:19 | P.HP_ITS ---
History of Present Illness *Admission Date: 12/27/23 *Reason for visit:: Fever, vomiting *History of present illness: Nazario Mitchell is a 68 year old male H signiciant for CAD Status post 3 stents, HTN, HLD, BPH who presents emergency room tonight with complaints of fatigue, vomiting, and shaking. Mr. Mitchell was accompanied by his significant other and daughter who are at bedside. Family states he woke up earlier in the night and vomited multiple times. It was non bloody/ non bilious. Also report he was shaking and stated he was unable to get warm. He had his gallbladder removed a few months ago and family reports he has been septic a couple of times recently. Daughter states she thinks the clamp on at the surgical site of his gallbladder is leaking . He was admitted at [facility] for urosepsis most recently. He reports right sided flank pain this evening. Pain is sharp, TTP, non radiating. Patient denies any dysuria, hematuria. Pt denies any chest pain, cough, shortness of breath, abdominal pain. Nol focal neuro deficits noted. Denies any recent weight gain/weight loss, no swelling in his legs or feet. He does wear 2L NC at baseline, family reports he has required oxygen since having covid a few years ago. 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 Denies tobacco u se, alcohol use, illicit drug use. Work u in the ER showed an Elevated lactic acid of 3.2, WBCs at low at 4000, UA showed positive nitrates, trace leuk esterase, 10-20 WBCs with 3+ bacteria. CT of the abdomen pelvis is pending formal read, and formal read does not show any hydronephrosis, no stone noted any ureter. Does show some intrarenal stones. Pt was given 4.5 G of zosyn in the ER. With CVA tenderness and urine that appears infectious, patient will be admitted to the hospitalist service for sepsis without septic shock secondary to pyelonephritis. [facility] Disclaimer: The information contained in this section may have been updated after the patient was seen, as this information can be updated by other users. Medical History Sepsis Obesity NSTEMI (non-ST elevated myocardial infarction) CAD (coronary artery disease) HTN (hypertension) HLD (hyperlipidemia) BPH (benign prostatic hyperplasia) Family History Other Cancer Social History (Updated 12/27/23 @ 07:37 by Paola Pedraza RN) Smoking Status: Unknown if ever smoked second hand exposure: No alcohol intake: never substance use type: denies use current occupational status: retired and disabled Travel in the last 8 weeks: None household members: spouse housing: house current occupational exposures/hazards: No caffeine: Yes Review of Systems Review of Systems Review of systems:: pertinent systems reviewed and negative unless documented below Meds Home Medications and Allergies Home Medications Medication Instructions Recorded Confirmed Type atorvastatin 40 mg tablet 40 mg PO DAILY 07/18/18 12/27/23 History isosorbide mononitrate 60 mg 60 mg PO DAILY 07/18/18 12/27/23 History tablet,extended release 24 hr meloxicam 15 mg tablet 15 mg PO DAILY 07/18/18 12/27/23 History tamsulosin 0.4 mg capsule 0.4 mg PO HS 07/18/18 12/27/23 History tramadol 50 mg tablet 50 mg PO TIDP PRN Moderate Pain 07/18/18 12/27/23 History ascorbic acid (vitamin C) 1,000 mg 1,000 mg PO DAILY 12/25/21 12/27/23 History tablet carvedilol 6.25 mg tablet 6.25 mg PO BID 12/27/23 12/27/23 History cyanocobalamin (vitamin B-12) 1,000 mcg IM MONTHLY 12/27/23 12/27/23 History 1,000 mcg/mL injection solution (Dodex) furosemide 40 mg tablet 40 mg PO DAILY 12/27/23 12/27/23 History omeprazole 20 mg capsule,delayed 40 mg PO DAILY 12/27/23 12/27/23 History release potassium chloride 10 mEq 10 meq PO DAILY 12/27/23 12/27/23 History capsule,extended release psyllium husk 3.4 gram/5.4 gram 1 tbsp PO DAILY 12/27/23 12/27/23 History oral powder (Metamucil) New Prescriptions to Start Prescriptions: Allergies Allergy/AdvReac Type Severity Reaction Status Date / Time No Known Drug Allergies Allergy Unknown Verified 11/10/18 11:17 Exam Data for Last 24 hours Vital signs and Labs for Last 24 Hours: Temp Pulse Resp BP Pulse Ox O2 Del Method O2 Flow Rate 101.1 F H 98 H 20 134/78 94 L Nasal Cannula 2 12/27/23 04:04 12/27/23 06:01 12/27/23 04:04 12/27/23 06:01 12/27/23 06:01 12/27/23 04:04 12/27/23 04:04 Laboratory Results - last 24 hr 12/27/23 04:20: SARS-CoV-2 (PCR) Not detected, Influenza A Untype (PCR) Not detected, Influenza Type B (PCR) Not detected 12/27/23 04:24: WBC 4.0 L, RBC 4.56 L, Hgb 14.4, Hct 43.9, MCV 96.2 H, MCH 31.5 H, MCHC 32.7, RDW 15.5, Plt Count 223, MPV 7.8, Neut % (Auto) 85.0 H, Lymph % (Auto) 10.4, [place] % (Auto) 2.3, Eos % (Auto) 1.8, Baso % (Auto) 0.6, Neut # (Auto) 3.4, Lymph # (Auto) 0.4 L, [place] # (Auto) 0.1, Eos # (Auto) 0.1, Baso # (Auto) 0.0, Total Counted 100, Neutrophils % (Manual) 89 H, Lymphocytes % (Manual) 9 L, Eosinophils % (Manual) 1, Metamyelocytes % 1, RBC Morphology Normal, Stomatocytes 1+, Sodium 139, Potassium 3.8, Chloride 107, Carbon Dioxide 25, Anion Gap 10.8, BUN 9, Creatinine 0.70, Estimated Creat Clear 108, Estimated GFR 112, Est GFR ( Amer) 135, Glucose 124 H, Lactate 3.2 H, Calcium 9.0, Total Bilirubin 0.9, AST 28, ALT 24, Alkaline Phosphatase 78, Total Protein 6.5, Albumin 3.7, Globulin 2.8, Albumin/Globulin Ratio 1.3 12/27/23 04:48: Urine Color Yellow, Urine Appearance Clear, Urine pH 6.0, Ur Specific [place] 1.020, Urine Protein Trace, Urine Glucose (UA) 3+, Urine Ketones Negative, Urine Blood 2+, Urine Nitrate Positive, Urine Bilirubin Negative, Urine Urobilinogen 0.2, Ur Leukocyte Esterase Trace, Urine RBC 5-10, Urine WBC 10-20, Ur Squamous Epith Cells 3-5, Urine Bacteria 3+ I & O for Last 24 hours: Intake & Output 12/24/23 12/25/23 12/26/23 12/27/23 23:59 23:59 23:59 23:59 Weight 109.316 kg *Routine HEENT Exam Head: Present normocephalic and atraumatic Eye: Present EOMI and PERRL ENT: Present mucous membranes moist *Routine Neck Exam Neck: Present supple *Routine Respiratory Exam Respiratory: Present CTA bilaterally *Routine Cardiovascular Exam Cardiovascular: Present RRR and Normal S1 *Routine Abdominal Exam Abdominal: Present soft and normoactive bowel sounds *Routine Rectal Exam Rectal:: deferred *Routine Genitalia Exam Genitalia:: deferred *Routine Extremities Exam Extremities: Present pulses intact and normal capillary refill Routine Back/Spine/Pelvis Exam Back/Spine: Present CVA tenderness Comments: Left CVA tenderness *Routine Skin Exam Skin: Present intact *Routine Neurological Exam Neurological: Present alert and oriented X3 Assessment and Plan *Assessment and plan (1) CAD (coronary artery disease): Status: Acute Category: Medical Code(s): I25.10 - Atherosclerotic heart disease of [place] coronary artery without angina pectoris (2) HTN (hypertension): Status: Acute Category: Medical Code(s): I10 - Essential (primary) hypertension (3) Pyelonephritis: Status: Acute Category: Medical Code(s): N12 - Tubulo-interstitial nephritis, not specified as acute or chronic (4) HLD (hyperlipidemia): Status: Acute Category: Medical Code(s): E78.5 - Hyperlipidemia, unspecified (5) BPH (benign prostatic hyperplasia): Status: Acute Category: Medical Code(s): N40.0 - Benign prostatic hyperplasia without lower urinary tract symptoms Plan Assessment: This is a 68-year-old male being admitted for sepsis without septic shock secondary to pyelonephritis. On my exam, patient is lying in bed in no acute distress. No complaints at this time. Plan: Admit to inpatient-MedSurg Sepsis without septic shock Pyelonephritis -Maintain MAP greater than 65, Pt has not been hypotensive and was not given the 30cc/kg IVF bolus in the ER. Will give a 1L IVF bolus now as patient lactic acid was elevated -Repeat lactic acid pending -Continue Zosyn -Urine culture pending HTN -Continue BB, HCTZ, CAD s/p 3 stents (1995) -continue ASA, imdur H/O Covid H/O DVT/PE -continue Xarelto -continue baseline oxygen requirements of 2L NC HLD -continue statin BPH -continue flomax DVT prophylaxis: Xarelto COde status: full code Surrogate decision maker: Olga [phone] Skin: Low risk Rounded on patient after nurse practitioner. Personally examined and interviewed patient. Agree with exam findings and care plan as documented.
--- OUTSIDE RECORDS SUMMARY | 2023-12-27 06:23 | XMS_ITS | Clinical Summary ---
Author Name Unknown Address [address] [place] [address] Phone Organization [facility] Address [address] [place] [address] Phone Care Team Providers Care Services Program Manager Name Role Phone Bernabe STOKES, Thiago Martinez [phone] Conditions or Problems No information available. Medications No information available. Medications Administered No information available. Allergies, Adverse Reactions, Alerts No information available. Results No information available. Plan of Care No information available. Procedures No information available. Vital Signs No information available. Immunizations No information available. Advance Directives No information available.
--- OUTSIDE RECORDS SUMMARY | 2023-12-27 06:23 | XMS_ITS | Patient Health Record ---
Author Name Unknown Organization [facility] Address [address] [place] [address] Care Team Providers Care Dobby Loom Weaver Name Role Phone Steven Keating Primary Care Provider KarissaMali barbosa Unavailable [phone] McCataSusannah leahyi Unavailable [phone] ALLERGIES No Known Allergies RESULTS Component Value Reference Range Notes Urinalysis Reviewed date:12/23/2023 03:52:40 PM Interpretation: Performing Lab: Notes/Report: Color/Clarity yellow Leuk neg Nitrite neg Urobili 0.2 Protein neg pH 7.0 Blood small Sp. Gr. >=1.030 Ketone neg Bili neg Glucose 500mg THYROID PANEL WITH TSH (7444 ) Reviewed date:12/05/2023 03:48:44 PM Interpretation: Performing Lab:ELENA Smartsheet-[employer] [employer] [place], ShoplocalQvuiBK[address] Lito Tobar Notes/Report: NON-FASTING; NON-FASTING; NON-FASTING; NON-FASTING; NON-FAST FASTING:YES FASTING: YES T3 UPTAKE 32 22-35 % T4 (THYROXINE), TOTAL 9.1 4.9-10.5 mcg/dL FREE T4 INDEX (T7) 2.9 1.4-3.8 TSH 0.31 0.40-4.50 mIU/L LIPID PANEL, STANDARD (6980) Reviewed date:12/05/2023 03:48:44 PM Interpretation: Performing Lab:ELENA Smartsheet-[facility] [employer] [place], ShoplocalQoskCB[address] Lito Tobar Notes/Report: NON-FASTING; NON-FASTING; NON-FASTING; NON-FASTING; NON-FAST FASTING:YES FASTING: YES CHOLESTEROL, TOTAL 149 <200 mg/dL HDL CHOLESTEROL 38 > OR = 40 mg/dL TRIGLYCERIDES 132 <150 mg/dL LDL-CHOLESTEROL 88 Reference range: <100 Desirable range <100 mg/dL for primary prevention; <70 mg/dL for patients with CHD or diabetic patients with > or = 2 CHD risk factors. LDL-C is now calculated using the Jad-Wood calculation, which is a validated novel method providing better accuracy than the Friedewald equation in the estimation of LDL-C. Jad SS et al. DEVON. 2013;310(19): 8299-5413 (http://education.Lyst/faq/FAQ16 4) CHOL/HDLC RATIO 3.9 <5.0 (calc) NON HDL CHOLESTEROL 111 <130 mg/dL (calc) For patients with diabetes plus 1 major ASCVD risk factor, treating to a non-HDL-C goal of <100 mg/dL (LDL-C of <70 mg/dL) is considered a therapeutic option. COMPREHENSIVE METABOLIC PANE Marti (65744) Reviewed date:12/05/2023 03:48:44 PM Interpretation: Performing Lab:CB, [facility]Domenico Lee13[address] [facility] MexicoraghavHuntsman Mental Health InstituteDomenico michaelXgeoVM[address] Lito Tobar Notes/Report: NON-FASTING; NON-FASTING; NON-FASTING; NON-FASTING; [...] 15 10-35 U/L ALT 12 9-46 U/L COMPREHENSIVE METABOLIC PANE L (44759) Reviewed date:11/27/2023 03:25:55 PM Interpretation: Performing Lab:ELENA, Smartsheet-[facility]P [address]13[address] JanalakshmiteIntralign, LookItHplqVR[address] Lito Tobar Notes/Report: NON-FASTING; NON-FASTING GLUCOSE 94 65-99 mg/dL Fasting reference interval UREA NITROGEN (BUN) 9 7-25 mg/dL CREATININE 0.82 0.70-1.35 mg/dL EGFR 95 > OR = 60 mL/min/1.73m2 BUN/CREATININE RATIO SEE NOTE: 6-22 (calc) Not Reported: BUN and Creatinine are within reference range. SODIUM 139 135-146 mmol/L POTASSIUM 3.8 3.5-5.3 mmol/L CHLORIDE 102 98-110 mmol/L CARBON DIOXIDE 28 20-32 mmol/L CALCIUM 8.7 8.6-10.3 mg/dL PROTEIN, TOTAL 6.2 6.1-8.1 g/dL ALBUMIN 3.7 3.6-5.1 g/dL GLOBULIN 2.5 1.9-3.7 g/dL (calc) ALBUMIN/GLOBULIN RATIO 1.5 1.0-2.5 (calc) BILIRUBIN, TOTAL 0.6 0.2-1.2 mg/dL ALKALINE PHOSPHATASE 60 35-144 U/L AST 16 10-35 U/L ALT 11 9-46 U/L COMPREHENSIVE METABOLIC PANE L (53370) Reviewed date:12/25/2023 10:23:45 AM Interpretation: Performing Lab:ELENA, [employer] [place], ShoplocalRexiKQ[address] Lito Tobar Notes/Report: NON-FASTING; NON-FASTING; NON-FASTING GLUCOSE [...] Reviewed date:12/05/2023 03:48:44 PM Interpretation: Performing Lab:ELENA [id number] [employer], [facility] CenterKqmjZI[address] Lito Tobar Notes/Report: NON-FASTING; NON-FASTING; NON-FASTING; NON-FASTING; NON-FAST FASTING:YES FASTING: YES MAGNESIUM 2.1 1.5-2.5 mg/dL CBC (INCLUDES DIFF/PLT) (639 9) Reviewed date:12/05/2023 03:48:44 PM Interpretation: Performing Lab:ELENA [employer] [employer], [employer] [id number] Lito Tobar Notes/Report: NON-FASTING; NON-FASTING; NON-FASTING; NON-FASTING; NON-FAST FASTING:YES FASTING: YES WHITE BLOOD CELL COUNT 9.3 3.8-10.8 Thousand/ uL RED BLOOD CELL COUNT 4.90 4.20-5.80 Million/uL HEMOGLOBIN 14.8 13.2-17.1 g/dL HEMATOCRIT 45.8 38.5-50.0 % MCV 93.5 80.0-100.0 fL MCH 30.2 27.0-33.0 pg MCHC 32.3 32.0-36.0 g/dL RDW 14.4 11.0-15.0 % PLATELET COUNT 177 140-400 Thousand/uL MPV 9.9 7.5-12.5 fL ABSOLUTE NEUTROPHILS [phone] cells/uL ABSOLUTE LYMPHOCYTES 2176 850-3900 cells/uL ABSOLUTE MONOCYTES 679 200-950 cells/uL ABSOLUTE EOSINOPHILS 270 15-500 cells/uL ABSOLUTE BASOPHILS 47 0-200 cells/uL NEUTROPHILS 65.9 LYMPHOCYTES 23.4 MONOCYTES 7.3 EOSINOPHILS 2.9 BASOPHILS 0.5 CBC (INCLUDES DIFF/PLT) (639 9) Reviewed date:11/27/2023 03:25:55 PM Interpretation: Performing Lab:ELENA, Smartsheet-[employer] [id number] [address] [place], ShoplocalVtesGU[address] Lito Tobar Notes/Report: NON-FASTING; NON-FASTING WHITE BLOOD CELL COUNT 6.8 3.8-10.8 Thousand/ uL RED BLOOD CELL COUNT 4.67 4.20-5.80 Million/uL HEMOGLOBIN 14.5 13.2-17.1 g/dL HEMATOCRIT 44.6 38.5-50.0 % MCV 95.5 80.0-100.0 fL MCH 31.0 27.0-33.0 pg MCHC 32.5 32.0-36.0 g/dL RDW 14.4 11.0-15.0 % PLATELET COUNT 165 140-400 Thousand/uL MPV 9.6 7.5-12.5 fL ABSOLUTE NEUTROPHILS 3896 5108-6367 cells/uL ABSOLUTE LYMPHOCYTES 2409 141-9416 cells/uL ABSOLUTE MONOCYTES 734 200-950 cells/uL ABSOLUTE EOSINOPHILS 197 15-500 cells/uL ABSOLUTE BASOPHILS 61 0-200 cells/uL NEUTROPHILS 57.3 LYMPHOCYTES 28.1 MONOCYTES 10.8 EOSINOPHILS 2.9 BASOPHILS 0.9 CBC (INCLUDES DIFF/PLT) (639 9) Reviewed date:12/25/2023 10:23:45 AM Interpretation: Performing Lab:ELENA, Smartsheet-[employer] [id number], SSP [id number] Lito Tobar Notes/Report: NON-FASTING; NON-FASTING; NON-FASTING WHITE BLOOD CELL COUNT 7.3 3.8-10.8 Thousand/ uL RED BLOOD CELL COUNT 4.33 4.20-5.80 Million/uL HEMOGLOBIN 13.1 13.2-17.1 g/dL HEMATOCRIT 42.7 38.5-50.0 % MCV 98.6 80.0-100.0 fL MCH 30.3 27.0-33.0 pg MCHC 30.7 32.0-36.0 g/dL RDW 14.9 11.0-15.0 % PLATELET COUNT 192 140-400 Thousand/uL MPV 10.1 7.5-12.5 fL ABSOLUTE NEUTROPHILS 4898 9528-8878 cells/uL ABSOLUTE LYMPHOCYTES 1403 672-7626 cells/uL ABSOLUTE MONOCYTES 482 200-950 cells/uL ABSOLUTE EOSINOPHILS 190 15-500 cells/uL ABSOLUTE BASOPHILS 37 0-200 cells/uL NEUTROPHILS 67.1 LYMPHOCYTES 23.2 MONOCYTES 6.6 EOSINOPHILS 2.6 BASOPHILS 0.5 VITAMIN B12/FOLATE, SERUM PA JACQUE (7065) Reviewed date:12/05/2023 03:48:45 PM Interpretation: Performing Lab:[facility], [facility] CenterBfceLY[address] Lito Tobar Notes/Report: NON-FASTING; NON-FASTING; NON-FASTING; NON-FASTING; NON-FAST FASTING:YES FASTING: YES VITAMIN B12 312 480-9806 pg/mL FOLATE, SERUM 10.7 Reference Range Low: <3.4 Borderline: 3.4-5.4 Normal: >5.4 CULTURE, URINE, ROUTINE (395 ) Reviewed date:12/25/2023 10:23:45 AM Interpretation: Performing Lab:ELE[facility], [facility] CenterVdpgNP[address] Lito Tobar Notes/Report: NON-FASTING; NON-FASTING; NON-FASTING CULTURE, URINE, ROUTINE SEE NOTE CULTURE, URINE, ROUTINE Micro Number: [id number] Test Status: Final Specimen Source: Urine, clean catch Specimen Quality: Adequate Result: No Growth BASIC METABOLIC PANEL Reviewed date:11/14/2023 02:51:38 PM Interpretation: Performing Lab: Notes/Report: SODIUM 139 136-145 mmol/L POTASSIUM 3.2 3.5-5.1 mmol/L CHLORIDE 97 98-107 mmol/L CARBON DIOXIDE 35 21-32 mmol/L ANION GAP 7.0 GLUCOSE 100 70-110 mg/dL BLOOD UREA NITROGEN 7 7-18 mg/dL CREATININE 0.9 0.8-1.3 mg/dL BUN/CREATININE RATIO 7.8 9-21 Ratio ESTIMATED GLOM FILTRATION RATE 89 >60- mL/min CALCIUM 8.9 8.5-10.1 mg/dL Note Unless otherwise noted testing performed at: [place] [id number] Chris Lutz MD CLIA: [id number] HEPATIC FUNCTION PANEL Reviewed date:11/18/2023 09:06:03 AM Interpretation: Performing Lab: Notes/Report: TOTAL PROTEIN 6.4 6.4-8.2 g/dL ALBUMIN 3.1 3.4-5.0 g/dL BILIRUBIN DIRECT 0.2 0.0-0.3 mg/dL BILIRUBIN TOTAL 0.8 0.4-1.5 mg/dL AST (SGOT) 40 15-37 U/L ALT (SGPT) 35 12-78 U/L ALK PHOSPHATASE 68 Note Unless otherwise noted testing performed at: [address] [address] Chris Lutz MD CLIA: [id number] CBC AUTO W DIFF Reviewed date:11/13/2023 04:10:49 PM Interpretation: Performing Lab: Notes/Report: WBC 10.0 4.5-11.5 10 RBC 4.91 4.25-5.57 10 HGB 14.8 13.5-17.2 g/dL HCT 44.6 42.0-52.0 % MCV 90.8 80-95 fl MCH 30.1 27.0-34.0 pg MCHC 33.2 32.0-36.0 g/dL PLATELET COUNT 263 150-450 10 RDW 14.6 12.3-15.1 % MPV 9.2 7.4-10.4 fl GRANULOCYTE% 70.7 40-75 % LYMPHOCYTE% 18.9 15-57 % MONOCYTE% 7.5 4.0-12.0 % EOSINOPHIL% 1.6 0.0-4.0 % BASOPHIL% 0.9 0.0-1.0 % IMMATURE GRANULOCYTES % 0.4 0.0-0.8 % GRANULOCYTE# 7.09 LYMPHOCYTE# 1.90 MONOCYTE# 0.75 EOSINOPHIL# 0.16 BASOPHIL# 0.09 IMMATURE GRANULOCYTES # 0.04 MANUAL DIFFERENTIAL NO Note Unless otherwise noted testing performed at: [place] [id number] Chris Lutz MD CLIA: [id number] MEDICATIONS Medication SIG (Take, Route, Frequency, Duration) Notes Start Date End Date Status carvedilol 6.25 mg 1 tab(s) orally 2 ti mes a day Active Dodex 1000 mcg/mL INJECT 1000MCG (1ML) INTRAMUSCULARLY ONCE A MONTH for 90 Active Xarelto 20 mg TAKE 1 TABLET ONE TI ME DAILY WITH FOOD for 90 Active omeprazole 20 mg 2 caps orally once a day for 90 days Active Vitamin C 500 mg 2 cap orally once a day Active traMADol 50 mg 1 tab(s) orally 3 ti mes a day prn for 90 days 12/24/2023 Active Jardiance 25 mg 1 tab(s) orally once a day (in the morning) Active Flomax 0.4MG 1 capsule orally onc e a day for 90 days Active Tylenol 500 mg 2 tab(s) orally prn Active Lipitor 40 mg 1 tab(s) orally once a day for 90 days Active nitroglycerin 0.4 mg 1 tab(s) sublingual ly every 5 minutes prn for 30 days Active isosorbide mononitrate 60 mg TAKE ONE TABLET BY MOUTH EVERY DAY orally once a day for 90 days Active cyclobenzaprine 5 mg 1 tab(s) orally at HS for 2 weeks 08/16/2016 Active Syringe 1cc 28g /2 - for 30 days 03/13/2021 Active IMMUNIZATIONS Vaccine Route Administration Date Status Comme nts SHINGRIX IM Intramuscular 12/03/2023 Administered Prevnar PCV-13 (Pneumococcal conjugate 13) IM Intramuscular 12/07/2019 Administered Pneumovax 23 IM Intramuscular 02/18/2017 Administered Pneumovax 23 IM Intramuscular 02/28/2022 Administered Influenza-Fluzone 3+years (NON-MEDICARE) IM Intramuscular 04/21/2015 Administered Influenza (Fluzone)--Medicare only IM Intramuscular 03/23/2011 Administered Influenza (Fluzone)--Medicare only IM Intramuscular 03/20/2012 Administered Influenza (Fluzone)--Medicare only IM Intramuscular 03/30/2016 Administered Influenza (Fluzone)--Medicare only IM Intramuscular 02/18/2017 Administered Influenza (Fluzone)--Medicare only IM Intramuscular 02/27/2018 Administered Fluzone High Dose IM Intramuscular 03/10/2020 Administered Fluzone High Dose IM Intramuscular 03/06/2021 Administered Fluzone High Dose IM Intramuscular 02/28/2022 Administered Fluzone High Dose IM Intramuscular 03/07/2023 Administered FLUZONE 6MO - OLDER IM Intramuscular 03/05/2019 Administer ed Fluvirin--Influenza vaccine 3+ year IM Intramuscular 03/24/2009 Administered Boostrix IM Intramuscular 12/03/2023 Administered Arexvy IM Intramuscular 06/19/2023 Administered SOCIAL HISTORY Sex Assigned At : Social History Observation Description Sex Assigned At Unknown PROBLEMS Problem Type ICD Code Onset Dates Problem Status W/U Status Risk SNOMED Code Notes Problem Hyperlipidemia, unspecified (E78.5) Active confirmed 90954937 Problem Essential hypertension (I10) Active confirmed 06696853 Problem B12 deficiency (E53.8) Active confirmed 017003716 Problem BMI 40.0-44.9, adult (Z68.41) Active confirmed 412060478 Problem BMI 39.0-39.9,adult (Z68.39) Active confirmed 668287529 Problem Hx pulmonary embolism (Z86.711) Active confirmed 496389344 Problem Coronary artery disease involving [place] coronary artery of [place] heart without angina pectoris (I25.10) Active confirmed 9977263048275 Problem Primary osteoarthritis of right knee (M17.11) Active confirmed 044680560237119 Problem Benign non-nodular prostatic hyperplasia without lower urinary tract symptoms (N40.0) Active confirmed 666336284 Problem FDC current use of anticoagulant (Z79.01) Active confirmed 636987271 Problem Spinal stenosis, other region (M48.00) Active confirmed 72333981 Problem Arthropathy, lower leg (M12.9) Active confirmed 111175635 Problem NSTEMI (non-ST elevated myocardial infarction) (I21.4) Active confirmed 79911137 Problem 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) Active confirmed 969424131436717 Problem Pulmonary embolism and infarction (I26.99) Active confirmed 129674351608949 Problem History of coronary artery disease (Z86.79) Active confirmed 135516426 Problem Chronic diastolic CHF (congestive heart failure) (I50.32) Active confirmed 234368864 Problem Acute deep vein thrombosis (DVT) of right lower extremity, unspecified vein (I82.401) Active confirmed 393803360010 Problem Smokeless tobacco use (Z72.0) Active confirmed 316717724 Problem Acute hypoxemic respiratory failure (J96.01) Active confirmed 938625725 Problem Chronic hypoxemic respiratory failure (J96.11) Active confirmed 320685186 Problem COVID (U07.1) Active confirmed 12194136 6 Problem S/P cholecystectomy (Z90.49) Active confirmed 700135136 VITAL SIGNS Heart Rate 78 /min 12/23/2023 Temperature 97.4 degrees Fahrenheit 12/23/2023 Oximetry 99% RA 2 L 11/13/2023 Blood pressure diastolic 82 mm Hg 12/23/2023 Height 5 ft 9 in in 12/23/2023 Blood pressure systolic 144 mm Hg 12/23/2023 Weight 247.7 lbs 12/23/2023 BMI 36.57 kg/m2 12/23/2023 Encounters Encounter Location Date Provider Diagnosis [facility] [address] [facility] [address] [place] [address] 02/06/2023 Steven Besson [facility] [place] [address] [address] 02/14/2023 Steven Besson Spinal stenosis, oth er region M48.00 [facility] [place] [address] [address] 04/05/2023 Steven Besson [facility] [address] [facility] [address] [place] [address] 09/09/2023 Steven Besson [facility] [address] [facility] [address] [place] [address] 11/12/2023 Steven Besson [facility] [place] [address] [address] 11/14/2023 Steven Besson S/P cholecystectomy Z90.49 [facility] [address] [facility] [address] [place] [address] 12/20/2023 Steven Besson [facility] [place] [address] [address] 12/03/2023 Steven Besson Essential hypertensi on I10 ; Hyperlipidemia, unspecified E78.5 ; Coronary artery disease involving [place] coronary artery of [place] heart without angina pectoris I25.10 ; B12 deficiency E53.8 ; Myalgia M79.10 ; Routine medical exam Z00.00 ; Encounter for immunization Z23 and Encounter for immunization Z23 [facility] [address] [address] 10/29/2023 Steven Keating Abdominal pain, generalized R10.84 [facility] [address] [address] 01/16/2023 Jasmyne McNees Ingrown toenail of r ight foot with infection L60.0 [facility] [address] [address] 02/06/2023 Mali Karissa Essential hypertensi on I10 ; Spinal stenosis, other region M48.00 ; Chronic diastolic CHF (congestive heart failure) I50.32 ; Coronary artery disease involving [place] coronary artery of [place] heart without angina pectoris I25.10 ; Pulmonary embolism and infarction I26.99 ; B12 deficiency E53.8 ; Hyperlipidemia, unspecified E78.5 ; Arthropathy, lower leg M12.9 ; FDC current use of anticoagulant Z79.01 and BMI 39.0-39.9,adult Z68.39 [facility] [address] [address] 06/19/2023 Mali Karissa Essential hypertensi on I10 ; Chronic hypoxemic respiratory failure J96.11 ; Spinal stenosis, other region M48.00 ; Chronic diastolic CHF (congestive heart failure) I50.32 ; Pulmonary embolism and infarction I26.99 ; Arthropathy, lower leg M12.9 ; Bilious vomiting with nausea R11.14 and Encounter for immunization Z23 [facility] [address] [address] 09/04/2023 Mali Karissa Essential hypertensi on I10 ; Chronic hypoxemic respiratory failure J96.11 ; Spinal stenosis, other region M48.00 ; Chronic diastolic CHF (congestive heart failure) I50.32 ; Pulmonary embolism and infarction I26.99 ; Arthropathy, lower leg M12.9 and Bilious vomiting with nausea R11.14 [facility] [address] [address] 03/07/2023 Steven Keating Immunization(s) administered Z23 [facility] [address] [address] 01/22/2023 Steven Keating Onychomycosis B35.1 and Ingrowing nail with infection L60.0 [facility] [address] [place] [address] 12/23/2023 Mali Hancock Dysuria R30.0 and Chronic diastolic CHF (congestive heart failure) I50.32 [facility] [address] [address] 11/13/2023 Mali Hancock S/P cholecystectomy Z90.49 ; Essential hypertension I10 ; History of coronary artery disease Z86.79 ; Chronic diastolic CHF (congestive heart failure) I50.32 ; Chronic hypoxemic respiratory failure J96.11 ; Hx pulmonary embolism Z86.711 and Hospital discharge follow-up Z09 [facility] [address] [address] 11/26/2023 Steven Keating Acute cholecystitis K81.0 ; Coronary artery disease involving [place] coronary artery of [place] heart without angina pectoris I25.10 ; Essential hypertension I10 and Hospital discharge follow-up Z09 ASSESSMENTS Encounter Date Diagnosis Assessment Notes Treatment Notes Treatment Clinical Notes 06/19/2023 Essential hypertension (ICD-10 - I10) 06/19/2023 Chronic hypoxemic respiratory failure (ICD-10 - J96.11) Onset of respiratory failure following pulmonary emboli and COVID-19 infection. Continues to require supplemental O2 throughout the day and during sleep. 2 L nasal cannula recommended. 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 He will continue follow-up with them as well as with orthopedics. Gallbladder ultrasound pending 10/29/2023 Abdominal pain, generalized (ICD-10 - R10.84) Patient has significant problems today including lack of ability to keep fluids down or even swallow water. He has intense abdominal pain. He has somewhat soft low blood pressure on the diastolic side. Given the persistence of symptoms throughout the day and the worrisome obstructive type symptoms strong recommendation to go to the emergency department have labs done, IV fluids and CT scanning to make a good diagnosis. This is not something we can do as an outpatient given insurance precertification requirements. and he are agreeable, they will report to emergency department. 11/13/2023 Essential hypertension (ICD-10 - I10) 11/13/2023 S/P cholecystectomy (ICD-10 - Z90.49) Hospital documentation reviewed, recommend labs today as noted. 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 Recommend PT to help improve endurance, decrease risk for complications. Continue Lasix just once a day unless his edema gets worse again. Xarelto has already been resumed. Will likely need to resume at least low-dose carvedilol but so far his heart rate and blood pressure are doing well without it. 11/14/2023 S/P cholecystectomy (ICD-10 - Z90.49) 11/26/2023 Acute cholecystitis (ICD-10 - K81.0) Reviewed antibiotic choices. Augmentin seems reasonable. Reviewed hospital discharge notes. Finish up antibiotics. Check labs. 11/26/2023 Coronary artery disease involving [place] coronary artery of [place] heart without angina pectoris (ICD-10 - I25.10) Given the blood pressure is low we will stay on beta-avery for afterload reduction and heart disease protection. 12/03/2023 Hyperlipidemia, unspecified (ICD-10 - E78.5) Check lipids. I will review personally. 12/03/2023 Essential hypertension (ICD-10 - I10) Blood pressure under good control. No changes in plan. 12/23/2023 Dysuria (ICD-10 - R30.0) UA reveals small amount of blood in urine. Due to patient's dysuria, ordered urine culture for further work-up. Will follow up and intervene as needed. 12/23/2023 Chronic diastolic CHF (congestive heart failure) (ICD-10 - I50.32) Prescibed diuretic PRN for leg edema. 09/04/2023 Essential hypertension (ICD-10 - I10) 09/04/2023 Chronic hypoxemic respiratory failure (ICD-10 - J96.11) reviewed chronic disease as noted and no changes recommended. discouraged use of meloxicam, continue PPI. consider gastric emptying and SBFT if HIDA is normal. following with Dr Dotson, GI in [facility] Continue cardiology FU NETTA on file and UTD, CSA UTD, using tramadol appropriately 03/07/2023 Immunization(s) administered (ICD-10 - Z23) 02/14/2023 Spinal stenosis, other region (ICD-10 - M48.00) 02/06/2023 Essential hypertension (ICD-10 - I10) well controlled 02/06/2023 Spinal stenosis, other region (ICD-10 - M48.00) tramadol as needed/noted. NETTA on file and updated today. Continues to tolerate this well with good pain relief and remains very functional. Poor candidate for NSAIDS due to CAD, CHF, anticoagulation but cardiology has allowed him to continue meloxicam 01/22/2023 Onychomycosis (ICD-10 - B35.1) LFTs have been normal. Sent terbinafine given poor likelihood of success with topical application. Follow-up in a couple months if not better 01/22/2023 Ingrowing nail with infection (ICD-10 - L60.0) Resume Xarelto tomorrow. Instructions given for patient as noted above. Procedure done without complications and minimal blood loss 01/16/2023 Ingrown toenail of right foot with infection (ICD-10 - L60.0) Treat empirically with abx as stated above. Soak in epsom salts a few times a day and afterwards use gentle traction to gradually pull skin away from nailbed at affected site. Refer to podiatry for removal. If unable to obtain appointment in the next week FU in office to re-evaluate. S/s of worsening condition discussed 02/06/2023 Chronic diastolic CHF (congestive heart failure) (ICD-10 - I50.32) Jardiance, lasix, weight loss as noted 12/03/2023 Coronary artery disease involving [place] coronary artery of [place] heart without angina pectoris (ICD-10 - I25.10) On appropriate therapy, blood pressure good control, make sure lipid is at tight target 09/04/2023 Spinal stenosis, other region (ICD-10 - M48.00) 11/26/2023 Essential hypertension (ICD-10 - I10) Blood pressure slightly low, recommended holding Lasix and potassium and will check labs today. I will see him in 1 week to reevaluate further labs. 11/13/2023 History of coronary artery disease (ICD-10 - Z86.79) 06/19/2023 Spinal stenosis, other region (ICD-10 - M48.00) 11/13/2023 Chronic diastolic CHF (congestive heart failure) (ICD-10 - I50.32) 11/26/2023 Hospital discharge follow-up (ICD-10 - Z09) Reviewed discharge summary, H&P and discharge medications personally. Personally reconciled medication. 12/03/2023 B12 deficiency (ICD-10 - E53.8) Check B12 deficiency given his mild myalgia 06/19/2023 Chronic diastolic CHF (congestive heart failure) (ICD-10 - I50.32) 09/04/2023 Chronic diastolic CHF (congestive heart failure) (ICD-10 - I50.32) 02/06/2023 Coronary artery disease involving [place] coronary artery of [place] heart without angina pectoris (ICD-10 - I25.10) continue statin 02/06/2023 Pulmonary embolism and infarction (ICD-10 - I26.99) cardiology directing management as well and they will decide about stopping anticoagulation 09/04/2023 Pulmonary embolism and infarction (ICD-10 - I26.99) 12/03/2023 Myalgia (ICD-10 - M79.10) Discussed with patient that it would be better for him to stay off NSAIDs given heart disease and his kidney issues. Recheck kidney function. Recommended continue Voltaren use. As needed Tylenol use. He is also seeing his orthopedist next week, injections may be a good option for him to continue 11/13/2023 Chronic hypoxemic respiratory failure (ICD-10 - J96.11) 06/19/2023 Pulmonary embolism and infarction (ICD-10 - I26.99) 06/19/2023 Arthropathy, lower leg (ICD-10 - M12.9) 11/13/2023 Hx pulmonary embolism (ICD-10 - Z86.711) 12/03/2023 Routine medical exam (ICD-10 - Z00.00) Medicare HRA reviewed. Immunizations will be updated. Up-to-date with colonoscopy. Non-smoker. 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 Excellent functional status, no falls. No concerning alcohol use. 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/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 (ICD-10 - Z79.01) 02/06/2023 BMI 39.0-39.9,adult (ICD-10 - Z68.39) complicates all aspects of care but improving, continue efforts 01/22/2023 Other PLAN OF TREATMENT Pending Test Test Name Order Date N-PSA 02/14/2007 EKG : In House 09/26/2018 EKG : In House 11/17/2015 EKG : In House 06/30/2020 C-CBC 06/09/2020 C-CBC 11/21/2017 C-CBC 08/19/2017 C-CBC 11/19/2016 C-CBC 05/19/2015 C-CBC 05/29/2018 C-CMP 05/29/2018 C-CMP 02/16/2015 C-CMP 10/17/2012 C-CMP 05/19/2015 C-CMP 05/17/2016 C-CMP 11/19/2016 C-CMP 08/19/2017 C-CMP 11/21/2017 C-CMP 06/09/2020 C-CMP 09/05/2020 C-CMP 06/30/2020 C-LIPID PANEL 09/05/2020 C-LIPID PANEL 06/09/2020 C-LIPID PANEL 11/21/2017 C-LIPID PANEL 08/19/2017 C-LIPID PANEL 11/19/2016 C-LIPID PANEL 05/17/2016 C-LIPID PANEL 05/19/2015 C-LIPID PANEL 10/17/2012 C-LIPID PANEL 02/16/2015 C-LIPID PANEL 05/29/2018 C-LIPID PANEL 09/26/2018 C-TSH 05/19/2015 C-TSH 05/29/2018 C-FREE T4 05/19/2015 C-PSA 11/21/2017 C-PSA 05/17/2016 C-VITAMIN B12 11/19/2016 C-VITAMIN B12 08/19/2017 C-VITAMIN B12 11/21/2017 C-VITAMIN B12 06/09/2020 C-VITAMIN B12 09/05/2020 C-VITAMIN B12 05/19/2015 C-VITAMIN B12 05/17/2016 C-VITAMIN B12 05/29/2018 C-VITAMIN B12 09/26/2018 C-BNP 06/30/2020 C-VITAMIN D, 25-HYDROXY 05/29/2018 Urine Culture, Routine 06/11/2015 C-DRUG SCREEN 12 PANEL 09/05/2020 M-Complete Blood Count w/o Diff 08/06/19 M-Comprehensive Metabolic Panel 08/06/19 M-Liver Panel 11/14/2023 M-Basic Metabolic Panel 08/06/2022 M-Hemoglobin A1C 08/06/2022 M-Magnesium 08/06/2022 M-Lipid Panel 08/06/2022 M-Vitamin B12 08/06/2022 M-Vitamin B12 06/01/2021 M-Vitamin D 25 Hydroxy 08/06/2022 VITAMIN D,25-OH,TOTAL,IA [id number] Next Appt Details Provider Name:Steven Keating, 03/03/2024 09:45:00 AM, [address], [address], Insurance Providers Payer Name Payer Address Payer Phone Subscriber Number Group Number Insured Name Patient Relationship to Insured Coverage Start Date Coverage End Date [facility] [address] [address] [facility] [id number] Nazario Mitchell Self - patient is the insured MEDICATIONS ADMINISTERED Medication Instructions Date of Administration Dosage Notes Kenalog-40 09/13/2021 40 mg Kenalog 12/13/2012 1 mL Kenalog 02/10/2014 1 Kenalog 02/16/2016 1 mL MEDICAL (GENERAL) HISTORY Medical History History ICD Code hypertension hypercholestrolemia degenerative disc disease s/p surgery. O n tramadol coronary artery disease-sten ts. 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
--- NOTE | 2023-12-27 06:34 | PC.NURSE ---
Report called to STEVEN Bailey
--- NOTE | 2023-12-27 06:55 | PC.NURSE ---
Patient arrived to floor via wheelchair from ED at 06:54.
--- OUTSIDE RECORDS SUMMARY | 2023-12-27 07:36 | XMS_ITS | Clinical Summary ---
Author Name Unknown Address [address] [place] [address] Phone Organization [facility] Address [address] [place] [address] Phone Care Team Providers Care Handbag Frames Inspector Name Role Phone Bernabe STOKES, Thiago Martinez [phone] Conditions or Problems No information available. Medications No information available. Medications Administered No information available. Allergies, Adverse Reactions, Alerts No information available. Results No information available. Plan of Care No information available. Procedures No information available. Vital Signs No information available. Immunizations No information available. Advance Directives No information available.
[2023-12-27] MEDS: 0.9 % SODIUM CHLORIDE 1000ML 1,000 ML 999 ML IV (08:12)
--- NOTE | 2023-12-27 08:25 | HMH.PHAINT1 ---
Pharmacy Intervention Comments: MEDICATION RECONCILIATION COMPLETED ON PATIENT USING EXTERNAL FILL HISTORY FROM PHARMACY. -DAVIDSON JOHNSON, JANETD
[2023-12-27 08:28] LABS: Reflex Lactic Add Lactic Reflex
[2023-12-27] MEDS: PIPERCILLIN/TAZO 3.375 GM in 0.9 % SODIUM CHLORIDE 50 ML IV ×2 (12:26→20:25)
[2023-12-27] MEDS: RIVAROXABAN 10MG TABLET 20 MG PO (17:11)
--- NOTE | 2023-12-27 17:31 | PC.NURSE ---
PT IS RESTING IN BED WITH FAMILY AT BEDSIDE. ALERT AND ORIENTED X3. EATING AND DRINKING WELL. PT HAS AMBULATED IN THE ROOM. LUNG SOUNDS CLEAR. ABDOMEN SOFT/NON TENDER WITH HYPERACTIVE BOWEL SOUNDS. VSS. O2 SATURATION HAS MAINTAINED 92-96% ON 2 L NC. WILL CONTINUE TO MONITOR.
[2023-12-27] MEDS: TAMSULOSIN 0.4MG CAPSULE 0.4 MG PO (20:25)
[2023-12-27] MEDS: CARVEDILOL 6.25MG TABLET 6.25 MG PO (20:25)
[2023-12-27] MEDS: PANTOPRAZOLE 40MG TABLET 40 MG PO (20:25)
[2023-12-28] MEDS: PIPERCILLIN/TAZO 3.375 GM in 0.9 % SODIUM CHLORIDE 50 ML IV ×3 (03:59→20:21)
[2023-12-28 04:00] VITALS: BP 141/75; PULSE 63; RESP 16; TEMP 36.8; O2SAT 98; BMI 35.6
--- NOTE | 2023-12-28 06:25 | PC.NURSE ---
vss, o2@2l/nc, voiding adequately, rested through the night, no c/o verbalized
[2023-12-28 07:42] LABS: Basophils # 0.1 K/mm3 (0-0.2); Basophils % 0.7 % (0.1-2.0); Eosinophils # 0.1 K/mm3 (0.0-0.4); Eosinophils % 1.9 % (0.1-12.0); Hematocrit 31.9 % (42.0-52.0); Hemoglobin 12.4 g/dL (14.1-18.0); Lymphocytes # 1.1 K/mm3 (0.7-4.5); Lymphocytes % 16.5 % (10-50); Mean Corpuscular Hemoglobin 38.3 pg (27.0-31.2); Mean Corpuscular Volume 98.2 fl (80-94); Mean Platelet Volume 7.7 fl (7.4-10.4); Monocytes # 0.4 K/mm3 (0.1-1.0); Monocytes % 5.5 % (1.7-9.3); Neutrophils # 5.2 K/mm3 (1.8-7.8); Neutrophils % 75.5 % (37.0-80.0); Platelet Count 143 K/mm3 (142-424); Red Blood Count 3.24 M/mm3 (4.60-6.20); Red Cell Distribution Width 15.6 % (11.5-17.5); White Blood Count 6.9 K/mm3 (4.8-10.8)
[2023-12-28 07:53] LABS: Anion Gap 8.2 mEq/L (5-15); Blood Urea Nitrogen 8 mg/dl (9-20); Calcium 8.4 mg/dl (8.4-10.2); Carbon Dioxide 26 mmol/L (22.0-30.0); Chloride 106 mmol/L (98-107); Creatinine Clearance Estimated 108 mL/min (50-200); Estimated Glomerular Filt Rate 165 ml/min (>60); GFR (African American) 199 ML/MIN (>60); Glucose 92 mg/dl (74-100); Potassium 3.2 mmoL/L (3.5-5.1); Sodium 137 mmol/L (136-145)
[2023-12-28 07:59] VITALS: BP 131/75; PULSE 80; RESP 16; TEMP 36.6; O2SAT 99
--- NOTE | 2023-12-28 08:01 | EXP.ACUTE.PN ---
Subjective *Date: 12/28/23 *Time: 13:57 Interval history: Feeling a little better this morning. Family at bedside. No fever overnight. Tolerating p.o. intake. Denies any flank pain. Medical Exam Vital signs and Labs for Last 24 Hours: Vital Signs Temp Pulse Resp BP Pulse Ox O2 Del Method O2 Flow Rate 12/28/23 07:59 98 F 80 16 131/75 99 Nasal Cannula 2 12/28/23 07:00 Nasal Cannula 2 12/28/23 05:00 Nasal Cannula 2 12/28/23 04:00 98.2 F 63 16 141/75 H 98 Nasal Cannula 2 12/28/23 03:00 Nasal Cannula 2 12/28/23 01:00 Nasal Cannula 2 12/27/23 23:00 Nasal Cannula 2 12/27/23 21:00 Nasal Cannula 2 12/27/23 20:00 Nasal Cannula 2 12/27/23 20:00 98.3 F 77 18 150/75 H 96 Nasal Cannula 2 12/27/23 18:12 Nasal Cannula 2 12/27/23 16:47 Nasal Cannula 2 12/27/23 16:00 98.2 F 71 18 149/79 H 98 Nasal Cannula 2 12/27/23 15:00 Nasal Cannula 2 12/27/23 12:54 Nasal Cannula 2 12/27/23 11:00 Room Air 12/27/23 08:03 Nasal Cannula 2 Intake and Output 12/27/23 12/28/23 12/28/23 23:59 07:59 15:59 Intake Total 1000 / 1720 0 / 0 Output Total 1500 / 2350 550 / 550 Balance -500 / -630 -550 / -550 Intake: Intake, Oral Amount 0 / 0 Intake, Total IV Amount 1000 / 1000 0.9 % Sodium Chloride 1000ML 1, 1000 / 1000 000 ml @ 999 mls/hr IV .Q1H1M ONE Rx#:[id number] Output: Output, Urine Amount 1500 / 2350 550 / 550 Other: Number of Unmeasured Voids 0 0 Number of Bowel Movements 0 Weight 109.316 kg Patient Weight 12/28/23 23:59 Weight 109.316 kg Laboratory Results - last 24 hr 12/27/23 04:48: Urine Color Yellow, Urine Appearance Clear, Urine pH 6.0, Ur Specific [place] 1.020, Urine Protein Trace, Urine Glucose (UA) 3+, Urine Ketones Negative, Urine Blood 2+, Urine Nitrate Positive, Urine Bilirubin Negative, Urine Urobilinogen 0.2, Ur Leukocyte Esterase Trace, Urine RBC 5-10, Urine WBC 10-20, Ur Squamous Epith Cells 3-5, Urine Bacteria 3+ 12/27/23 08:15: Lactate 2.0 12/28/23 06:50: WBC 6.9 D, RBC 3.24 L D, Hgb 12.4 L, Hct 31.9 L, MCV 98.2 H, MCH 38.3 H, MCHC 39.0 H, RDW 15.6, Plt Count 143 D, MPV 7.7, Neut % (Auto) 75.5, Lymph % (Auto) 16.5, [place] % (Auto) 5.5, Eos % (Auto) 1.9, Baso % (Auto) 0.7, Neut # (Auto) 5.2, Lymph # (Auto) 1.1, [place] # (Auto) 0.4, Eos # (Auto) 0.1, Baso # (Auto) 0.1, Sodium 137, Potassium 3.2 L, Chloride 106, Carbon Dioxide 26, Anion Gap 8.2, BUN 8 L, Creatinine 0.50 L D, Estimated Creat Clear 108, Estimated GFR 165, Est GFR ( Amer) 199 D, Glucose 92, Calcium 8.4 I & O for Labs for Last 24 Hours: Intake & Output 12/25/23 12/26/23 12/27/23 12/28/23 23:59 23:59 23:59 23:59 Intake Total 1720 / 1720 0 / 0 Output Total 2250 / 2350 550 / 550 Balance -530 / -630 -550 / -550 Weight 109.316 kg 109.316 kg Microbiology Reports for the Last 24 Hours: Microbiology 12/27/23 04:48 Urine,Clean Catch Urine Culture - Preliminary Gram Negative Rods 12/27/23 04:22 Blood Blood Culture - Preliminary NO GROWTH AFTER 24 HOURS 12/27/23 04:24 Blood Blood Culture - Preliminary NO GROWTH AFTER 24 HOURS Constitutional: Present no acute distress, obese and chronically ill appearing Head: Present atraumatic and normocephalic ENT: Present normal exam Respiratory: Present normal respiratory effort; Absent rhonchi, wheezes or crackles Cardiac: Present Reg Rate and Rhythm GI: Present soft and normal bowel sounds; Absent distention or tenderness Comments:: No CVA tenderness Extremities: Present normal inspection and full ROM Skin: Present intact; Absent erythema Neuro: Present Grossly Intact, alert, awake, oriented x 3 and moves all extremities Assessment and Plan *Assessment and plan (1) Pyelonephritis: Status: Acute Category: Medical Code(s): N12 - Tubulo-interstitial nephritis, not specified as acute or chronic (2) CAD (coronary artery disease): Status: Acute Category: Medical Code(s): I25.10 - Atherosclerotic heart disease of [place] coronary artery without angina pectoris (3) HTN (hypertension): Status: Acute Category: Medical Code(s): I10 - Essential (primary) hypertension (4) HLD (hyperlipidemia): Status: Acute Category: Medical Code(s): E78.5 - Hyperlipidemia, unspecified (5) BPH (benign prostatic hyperplasia): Status: Acute Category: Medical Code(s): N40.0 - Benign prostatic hyperplasia without lower urinary tract symptoms Plan Assessment: This is a 68-year-old male being admitted for sepsis without septic shock secondary to pyelonephritis. On my exam, patient is lying in bed in no acute distress. No complaints at this time. Admitted to medicine for further management. On morning rounds today, feeling better. No CVA tenderness. Afebrile. Continuing IV antibiotics. Urine culture showing gram-negative rods. Continues to necessitate inpatient management. Problems addressed as follows: Sepsis without septic shock Pyelonephritis -Urine culture showing gram-negative rods. Awaiting speciation and sensitivity. Per review of records from [facility], patient grew pansensitive E. coli on 12/13. -Showing improvement this morning. Will continue Zosyn 3.375 g 3 times a day. -Abdominal imaging does show renal stones, nonobstructing. Will refer to urology as an outpatient given recurrent UTI. -Further history from family, patient was on Jardiance until earlier this week. Complicating factor for possible repeat UTI. Holding that medication at this time. Will not continue at discharge -White cell count normal at 6.9. Hemoglobin 12.4. Kidney function with BUN of 8, creatinine 0.5. Repeat CBC, CMP, magnesium ordered for the morning CAD s/p 3 stents (1995) HTN: continue home carvedilol 6.25 mg twice daily Continue isosorbide 60 mg daily continue ASA, H/O Covid H/O DVT/PE -continue Xarelto 20 mg daily -continue baseline oxygen requirements of 2L NC as needed for pulse ox greater 90%. HLD: continue Lipitor 40 mg daily BPH: continue tamsulosin 0.4 mg nightly DVT prophylaxis: Xarelto COde status: full code Surrogate decision maker: Olga [phone] Skin: Low risk
[2023-12-28] MEDS: ATORVASTATIN 40MG TABLET 40 MG PO (08:37)
[2023-12-28] MEDS: ISOSORBIDE MONO 60MG TAB.ER.24H 60 MG PO (08:37)
[2023-12-28] MEDS: CARVEDILOL 6.25MG TABLET 6.25 MG PO ×2 (08:37→20:22)
[2023-12-28] MEDS: POTASSIUM CHLORIDE 20MEQ TAB 20 MEQ PO ×3 (08:38→20:22)
[2023-12-28 16:00] VITALS: BP 135/73; PULSE 60; RESP 18; TEMP 36.8; O2SAT 99
[2023-12-28] MEDS: RIVAROXABAN 10MG TABLET 20 MG PO (17:01)
--- NOTE | 2023-12-28 17:28 | PC.NURSE ---
Pt A&Ox4. Lung sounds clear upon auscultation. pt remains on baseline of 2L NC. Pt tolerating meals well. Ambulating to and from bathroom with standby assist and voiding with no issues. Pt has denied any pain this shift and stated he is feeling better today. Family at bedside with patient. Pt has no complaints at this time.
[2023-12-28 19:40] VITALS: BP 140/86; PULSE 65; RESP 16; TEMP 36.7; O2SAT 98
[2023-12-28 20:00] VITALS: O2SAT 98
[2023-12-28] MEDS: TAMSULOSIN 0.4MG CAPSULE 0.4 MG PO (20:22)
[2023-12-28] MEDS: PANTOPRAZOLE 40MG TABLET 40 MG PO (20:22)
[2023-12-29 04:00] VITALS: BMI 36.6
[2023-12-29] MEDS: PIPERCILLIN/TAZO 3.375 GM in 0.9 % SODIUM CHLORIDE 50 ML IV (04:11)
--- NOTE | 2023-12-29 04:39 | PC.NURSE ---
68 yo male pt admitted with pyelonephritis. He is A/O x 4, Pt has remained comfortable through the night. at BS and assists with urinal. Pt is standby assist for ambulating but has remained in bed throughout shift. He has remained afebrile and VSS.
--- NOTE | 2023-12-29 07:53 | EXP.DC.SUM ---
General Admission date:: 12/27/23 Discharge date: 12/29/23 HPI HPI HPI: Nazario Mitchell is a 68 year old male H signiciant for CAD Status post 3 stents, HTN, HLD, BPH who presents emergency room tonight with complaints of fatigue, vomiting, and shaking. Mr. Mitchell was accompanied by his significant other and daughter who are at bedside. Family states he woke up earlier in the night and vomited multiple times. It was non bloody/ non bilious. Also report he was shaking and stated he was unable to get warm. He had his gallbladder removed a few months ago and family reports he has been septic a couple of times recently. Daughter states she thinks the clamp on at the surgical site of his gallbladder is leaking . He was admitted at [facility] for urosepsis most recently. He reports right sided flank pain this evening. Pain is sharp, TTP, non radiating. Patient denies any dysuria, hematuria. Pt denies any chest pain, cough, shortness of breath, abdominal pain. Nol focal neuro deficits noted. Denies any recent weight gain/weight loss, no swelling in his legs or feet. He does wear 2L NC at baseline, family reports he has required oxygen since having covid a few years ago. 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 Denies tobacco use, alcohol use, illicit drug use. Work u in the ER showed an Elevated lactic acid of 3.2, WBCs at low at 4000, UA showed positive nitrates, trace leuk esterase, 10-20 WBCs with 3+ bacteria. CT of the abdomen pelvis is pending formal read, and formal read does not show any hydronephrosis, no stone noted any ureter. Does show some intrarenal stones. Pt was given 4.5 G of zosyn in the ER. With CVA tenderness and urine that appears infectious, patient will be admitted to the hospitalist service for sepsis without septic shock secondary to pyelonephritis. Hospital Course Hospital Course Hospital Course: This is a 68-year-old male being admitted for sepsis without septic shock secondary to pyelonephritis. On my exam, patient is lying in bed in no acute distress. No complaints at this time. Admitted to medicine for further management. Urine showing gram-negative rods. Patient showed clinical improvement during admission. Results from [facility] showed pansensitive E. coli. Patient responded to antibiotics. Transition to Levaquin to complete 7-day course based on previous sensitivity. Patient on Jardiance prior to admission, suspect this is a culprit in his recurrent UTIs. Given clinical improvement, normalization of white count, will discharge home with further management as an outpatient. Problems addressed as follows: Sepsis without septic shock Pyelonephritis -Urine culture obtained showing gram-negative rods. Awaiting speciation and sensitivity. Per review of records from [facility], patient grew pansensitive E. coli on 12/13. Patient showed improvement during admission on Zosyn. Abdominal imaging showed renal stones that were nonobstructing. Given recurrent UTI and stones, referred to urology as an outpatient. Will transition to Levaquin to complete 7 days of antibiotics with 750 mg daily. Final culture results still pending. White cell count normal at 5.5 on day of discharge. Kidney function normal with BUN 7, creatinine 8.6. CAD s/p 3 stents (1995) HTN: continue home carvedilol 6.25 mg twice daily, continue isosorbide 60 mg daily, continue ASA H/O Covid H/O DVT/PE -continue Xarelto 20 mg daily. continue baseline oxygen requirements of 2L NC as needed for pulse ox greater 90%. HLD: continue Lipitor 40 mg daily BPH: continue tamsulosin 0.4 mg nightly Exam Data for Last 24 hours Vital signs and Labs for Last 24 Hours: Temp Pulse Resp BP Pulse Ox O2 Del Method O2 Flow Rate 98.1 F 65 16 140/86 98 Nasal Cannula 2 12/28/23 19:40 12/28/23 19:40 12/28/23 19:40 12/28/23 19:40 12/28/23 20:00 12/29/23 07:32 12/29/23 06:46 FiO2 28 12/28/23 18:38 Laboratory Results - last 24 hr 12/28/23 06:50: Sodium 137, Potassium 3.2 L, Chloride 106, Carbon Dioxide 26, Anion Gap 8.2, BUN 8 L, Creatinine 0.50 L D, Estimated Creat Clear 108, Estimated GFR 165, Est GFR ( Amer) 199 D, Glucose 92, Calcium 8.4 I & O for Last 24 hours: Intake & Output 12/26/23 12/27/23 12/28/23 12/29/23 23:59 23:59 23:59 23:59 Intake Total 1720 / 1720 1430 / 1730 400 / 400 Output Total 2250 / 2350 550 / 550 1150 / 1150 Balance -530 / -630 880 / 1180 -750 / -750 Weight 109.316 kg 109.316 kg 112.128 kg Microbiology Reports for the Last 24 Hours: Microbiology 12/27/23 04:48 Urine,Clean Catch Urine Culture - Preliminary Gram Negative Rods 12/27/23 04:22 Blood Blood Culture - Preliminary NO GROWTH AFTER 48 HOURS 12/27/23 04:24 Blood Blood Culture - Preliminary NO GROWTH AFTER 48 HOURS Constitutional Constitutional: no acute distress and obese *Routine HEENT Exam Head: Present normocephalic Eye: Present EOMI and PERRL ENT: Present mucous membranes moist *Routine Neck Exam Neck: Present supple; Absent lymphadenopathy *Routine Respiratory Exam Respiratory: Present CTA bilaterally; Absent rhonchi, wheezes or crackles *Routine Cardiovascular Exam Cardiovascular: Present RRR *Routine Abdominal Exam Abdominal: Present soft and normoactive bowel sounds; Absent tenderness *Routine Rectal Exam Patient deferred: visual exam *Routine Exam Patient deferred: penile exam *Routine Extremities Exam Extremities: Absent cyanosis, clubbing or edema Routine Back/Spine/Pelvis Exam Back/Spine: Absent CVA tenderness *Routine Skin Exam Skin: Present intact and warm; Absent rash *Routine Neurological Exam Neurological: Present alert, oriented X3 and moving all extremities; Absent altered mental status Results Data Completed and Pending Labs on day of discharge: Labs from last 24 hours 12/28/23 06:50 Sodium 137 Potassium 3.2 L Chloride 106 Carbon Dioxide 26 Anion Gap 8.2 BUN 8 L Creatinine 0.50 L D Estimated Creat Clear 108 Estimated GFR 165 Est GFR ( Amer) 199 D Glucose 92 Calcium 8.4 Preliminary micro results at discharge 12/27/23 04:48 Urine Culture - Preliminary Urine,Clean Catch Gram Negative Rods 12/27/23 04:22 Blood Culture - Preliminary Blood NO GROWTH AFTER 48 HOURS 12/27/23 04:24 Blood Culture - Preliminary Blood NO GROWTH AFTER 48 HOURS DS: Diagnosis Discharge Diagnosis (1) Pyelonephritis: Status: Acute Code(s): N12 - Tubulo-interstitial nephritis, not specified as acute or chronic (2) CAD (coronary artery disease): Status: Acute Code(s): I25.10 - Atherosclerotic heart disease of [place] coronary artery without angina pectoris (3) HTN (hypertension): Status: Acute Code(s): I10 - Essential (primary) hypertension (4) HLD (hyperlipidemia): Status: Acute Code(s): E78.5 - Hyperlipidemia, unspecified (5) BPH (benign prostatic hyperplasia): Status: Acute Code(s): N40.0 - Benign prostatic hyperplasia without lower urinary tract symptoms Meds Home Medications and Allergies Home Medications Medication Instructions Recorded Confirmed Type atorvastatin 40 mg tablet 40 mg PO DAILY 07/18/18 12/27/23 History isosorbide mononitrate 60 mg 60 mg PO DAILY 07/18/18 12/27/23 History tablet,extended release 24 hr meloxicam 15 mg tablet 15 mg PO DAILY 07/18/18 12/27/23 History tamsulosin 0.4 mg capsule 0.4 mg PO HS 07/18/18 12/27/23 History tramadol 50 mg tablet 50 mg PO TIDP PRN Moderate Pain 07/18/18 12/27/23 History ascorbic acid (vitamin C) 1,000 mg 1,000 mg PO DAILY 12/25/21 12/27/23 History tablet carvedilol 6.25 mg tablet 6.25 mg PO BID 12/27/23 12/27/23 History cyanocobalamin (vitamin B-12) 1,000 mcg IM MONTHLY 12/27/23 12/27/23 History 1,000 mcg/mL injection solution (Dodex) furosemide 40 mg tablet 40 mg PO DAILY 12/27/23 12/27/23 History omeprazole 20 mg capsule,delayed 40 mg PO DAILY 12/27/23 12/27/23 History release potassium chloride 10 mEq 10 meq PO DAILY 12/27/23 12/27/23 History capsule,extended release psyllium husk 3.4 gram/5.4 gram 1 tbsp PO DAILY 12/27/23 12/27/23 History oral powder (Metamucil) rivaroxaban 20 mg tablet (Xarelto) 20 mg PO QPMWITHMEAL 12/27/23 12/27/23 History levofloxacin 750 mg tablet 750 mg PO DAILY 4 days #4 tabs 12/29/23 Rx New Prescriptions to Start Prescriptions: levofloxacin Ananda Richmond Allergies Allergy/AdvReac Type Severity Reaction Status Date / Time No Known Drug Allergies Allergy Unknown Verified 11/10/18 11:17 Discharge Plan Disposition Patient Disposition: Home, Self-Care Condition: Good Discharge Order Discharge Orders: Discharge Order (Routine); Ordered 12/29/23 Ordered By: Ananda Richmond Follow up Plan Follow up with: Marcell Lyons MD [Staff Physician] - Enter time for follow up (please call for follow up. ) Mali Hancock APRN [Primary Care Provider] - 01/02/24 11:15 am Prescriptions/Medication Reconciliation: New levofloxacin 750 mg tablet 750 mg PO DAILY 4 Days Qty: 4 0RF Rx Instructions: first dose in morning of 12/30/23 Continued carvedilol 6.25 mg Tablet 6.25 mg PO BID Rx Instructions: must administer with a meal/food Metamucil 3.4 gram/5.4 gram Powder 1 tbsp PO DAILY Rx Instructions: mix into at least 8 oz of water or juice before administering potassium chloride 10 mEq Capsule, Extended Release 10 meq PO DAILY cyanocobalamin (vitamin B-12) [Dodex] 1,000 mcg/mL Solution 1,000 mcg IM MONTHLY furosemide 40 mg tablet 40 mg PO DAILY omeprazole 20 mg capsule,delayed release(DR/EC) 40 mg PO DAILY Xarelto 20 mg Tablet 20 mg PO QPMWITHMEAL atorvastatin 40 MG tablet 40 mg PO DAILY meloxicam 15 MG tablet 15 mg PO DAILY tramadol 50 MG tablet 50 mg PO TIDP PRN (Reason: Moderate Pain) isosorbide mononitrate 60 MG tablet extended release 24 hr 60 mg PO DAILY tamsulosin 0.4 MG capsule 0.4 mg PO HS ascorbic acid (vitamin C) 1,000 MG tablet 1,000 mg PO DAILY Problem Reconciliation Problems Reviewed?: Yes Patient Discharge Instructions ACTIVITY: Continue current activity DIET: continue same diet Patient Instructions: DI for Kidney Infection, DI for Sepsis -- Adult Providers Primary Care Provider: Mali Hancock Admit Provider: Ananda Richmond Attending Provider: Ananda Richmond
[2023-12-29 08:00] VITALS: BP 149/79; PULSE 65; RESP 20; TEMP 36.5; O2SAT 98
[2023-12-29 08:25] LABS: Basophils % 0.7 % (0.1-2.0); Eosinophils # 0.2 K/mm3 (0.0-0.4); Eosinophils % 3.8 % (0.1-12.0); Hematocrit 41.4 % (42.0-52.0); Hemoglobin 13.7 g/dL (14.1-18.0); Lymphocytes # 1.5 K/mm3 (0.7-4.5); Lymphocytes % 27.6 % (10-50); Mean Corpuscular Hemoglobin 32.2 pg (27.0-31.2); Mean Corpuscular Volume 97.4 fl (80-94); Mean Platelet Volume 8.3 fl (7.4-10.4); Monocytes # 0.4 K/mm3 (0.1-1.0); Neutrophils # 3.4 K/mm3 (1.8-7.8); Neutrophils % 60.8 % (37.0-80.0); Platelet Count 179 K/mm3 (142-424); Red Blood Count 4.25 M/mm3 (4.60-6.20); Red Cell Distribution Width 15.5 % (11.5-17.5); White Blood Count 5.5 K/mm3 (4.8-10.8)
[2023-12-29 08:26] LABS: Chloride 107 mmol/L (98-107)
[2023-12-29 08:27] LABS: Sodium 138 mmol/L (136-145)
[2023-12-29 08:29] LABS: Alanine Aminotransferase 17 U/L (12-78); Aspartate Amino Transferase 26 U/L (17-59); Blood Urea Nitrogen 7 mg/dl (9-20); Creatinine Clearance Estimated 111 mL/min (50-200); Estimated Glomerular Filt Rate 134 ml/min (>60); GFR (African American) 162 ML/MIN (>60)
[2023-12-29 08:30] LABS: Albumin Level 3.4 g/dl (3.5-5.0); Albumin/Globulin Ratio 1.2 (1.1-1.8); Alkaline Phosphatase 60 U/L (38-126); Bilirubin,Total 0.5 mg/dl (0.2-1.3); Calcium 8.9 mg/dl (8.4-10.2); Carbon Dioxide 27 mmol/L (22.0-30.0); Globulin 2.9 g/dL (1.3-3.2); Glucose 112 mg/dl (74-100); Magnesium 1.7 mg/dl (1.6-2.3); Total Protein,Serum 6.3 g/dl (6.3-8.2)
[2023-12-29] MEDS: POTASSIUM CHLORIDE 20MEQ TAB 20 MEQ PO (09:16)
[2023-12-29] MEDS: CARVEDILOL 6.25MG TABLET 6.25 MG PO (09:17)
[2023-12-29] MEDS: ISOSORBIDE MONO 60MG TAB.ER.24H 60 MG PO (09:17)
[2023-12-29] MEDS: ATORVASTATIN 40MG TABLET 40 MG PO (09:17)
[2023-12-29] MEDS: LEVOFLOXACIN/D5W 750 MG/150 ML 750 MG/150 ML PIGGYBACK 100 MG IV (10:02)
--- NOTE | 2023-12-30 14:35 | CARE MANAGER ---
Contacted patient's related to hospital discharge. She states he is tired today, but doing better. Denies questions or concerns and is aware of follow up appointments. STEVEN Bowie
== END 2023-12-29 12:05 | disposition home or self-care (01) | DRG 872 ==
LOC: ER 05:23 → 2ND 06:35
PROVIDERS: Nurse Practitioner Acute Care; Admitting Provider Internal Medicine Adolescent Medicine; Emergency Provider Emergency Medicine; PCP Nurse Practitioner Family; Visit Provider Internal Medicine Adolescent Medicine
DX: A41.9 Sepsis, unspecified organism (principal); N10 Acute pyelonephritis; I10 Essential (primary) hypertension; E78.5 Hyperlipidemia, unspecified; I25.10 Atherosclerotic heart disease of native coronary artery without angina pectoris; E66.9 Obesity, unspecified; Z99.81 Dependence on supplemental oxygen; Z95.5 Presence of coronary angioplasty implant and graft; N40.0 Benign prostatic hyperplasia without lower urinary tract symptoms
CPT/HCPCS: 36415; 74177; 80048; 80053; 81001; 83605; 83735; 85007; 85025; 85027; 87040; 87086; 87088; 87186; 87636; 99221; 99285; J1956; J2543; J7120; Q9967

== ENCOUNTER 2024-01-03 08:32 | Outpatient (CLI) | payer MEDICARE, SELFPAY ==
--- OUTSIDE RECORDS SUMMARY | 2024-01-03 08:34 | XMS_ITS | Clinical Summary ---
Author Organization [facility] Address [address] [place] [address] Phone Care Team Providers Care Teacher Tutor Name Role Phone Thiago Kidd MD [phone] Conditions or Problems No information available. Medications No information available. Medications Administered No information available. Allergies, Adverse Reactions, Alerts No information available. Results No information available. Plan of Care No information available. Procedures No information available. Vital Signs No information available. Immunizations No information available. Advance Directives No information available.
--- OUTSIDE RECORDS SUMMARY | 2024-01-03 08:35 | XMS_ITS ---
Author Organization [facility] Address [address] [facility] [address] [place], [place] [address] Care Team Providers Care Nurse Coordinator Name Role Phone Steven Keating Primary Care Provider [phone] Mali Hancock [phone] MEDICATIONS Medication SIG (Take, Route, Frequency, Duration) Notes Start Date End Date Status nystatin topical 895224 units/g 1 jeffery applied topically 3 times a day for 7 days 01/02/2024 Active Encounters Encounter Location Date Provider Diagnosis [facility] [address] [facility] [address] [place], [place] [address] 01/02/2024 Mali Hancock PLAN OF TREATMENT Medication Medication Name Sig Start Date Stop Date Notes nystatin topical 160515 units/g 1 jeffery applied topically 3 times a day for 7 days 01/02/2024 Next Appt Details Provider Name:Mali osborne, 01/30/2024 09:15:00 AM, [address] [facility], [address], [place], [place], [address], Provider Name:Steven Keating, 03/03/2024 09:45:00 AM, [address] [place] [address], [phone], Progress Notes * Nazario KWON RDOB: (68 yo M)Acc No.[id number]:01/02/2024 Patient:??Nazario KWON
--- OUTSIDE RECORDS SUMMARY | 2024-01-03 08:35 | XMS_ITS ---
Author Organization [facility] Address [address] [facility] 36 [facility] [address] [place] [address] Care Team Providers Care Manager Private Name Role Phone Steven Keating Primary Care Provider Mali Hancock [phone] REASON FOR VISIT order Encounters Encounter Location Date Provider Diagnosis [address] [address] 01/02/2024 Mali Karissa Microscopic hematuri a R31.29 and Acute abdominal pain R10.9 ASSESSMENTS Encounter Date Diagnosis Assessment Notes Treatment Notes Treatment Clinical Notes 01/02/2024 Microscopic hematuria (ICD-10 - R31.29) 01/02/2024 Acute abdominal pain (ICD-10 - R10.9) PLAN OF TREATMENT Pending Test Test Name Order Date Ultrasound : Abdomen 01/02/2024 Next Appt Details Provider Name:Mali osborne, 01/30/2024 09:15:00 AM, [address] [facility] [address] [facility], [address], [place], [address], Provider Name:Steven Keating, 03/03/2024 09:45:00 AM, [address] [place] [address], [address], Progress Notes * Nazario KWON RDOB: (68 yo M)Acc No.[id number]:01/02/2024 Patient:??Nazario KWON
--- OUTSIDE RECORDS SUMMARY | 2024-01-03 08:35 | XMS_ITS ---
Author Organization [facility] Address [address] [facility] 36 [facility] [address] [place] [address] Care Team Providers Care Lunchroom Mother Name Role Phone Steven Keating Primary Care Provider Mali Hancock [phone] REASON FOR VISIT med MEDICATIONS Medication SIG (Take, Route, Fr equency, Duration) Notes Start Date End Date Status levoFLOXacin 750 mg 1 tab(s) orally ever y 24 hours for 10 days 12/31/2023 Active Encounters Encounter Location Date Provider Diagnosis [address] [address] 01/02/2024 Steven Keating PLAN OF TREATMENT Medication Medication Name Sig Start Date Stop Date Notes levoFLOXacin 750 mg 1 tab(s) orally ever y 24 hours for 10 days 12/31/2023 Next Appt Details Provider Name:Mali osborne, 01/30/2024 09:15:00 AM, [address] [facility] 36 [facility], [address], [place], [address], Provider Name:Steven Keating, 03/03/2024 09:45:00 AM, [address] [place] [address], [phone], Progress Notes * Nazario KWON RDOB: (68 yo M)Acc No.[id number]:01/02/2024 Patient:??Nazario KWON
--- OUTSIDE RECORDS SUMMARY | 2024-01-03 08:36 | XMS_ITS | Patient Health Record ---
Author Organization [facility] Address [address] [place] [address] Care Team Providers Care Hard Candy Batch Mixer Name Role Phone Steven Keating Primary Care Provider KarissaMali Unavailable [phone] [place] Jasmyne Unavailable [phone] ALLERGIES No Known Allergies RESULTS Component Value Reference Range Notes Urinalysis Reviewed date:01/02/2024 12:40:32 PM Interpretation: Performing Lab: Notes/Report: Color/Clarity flakito Leuk neg Nitrite neg Urobili 0.2 Protein neg pH 6.0 Blood neg Sp. Gr. >=1.030 Ketone neg Bili neg Glucose neg Urinalysis Reviewed date:12/23/2023 03:52:40 PM Interpretation: Performing Lab: Notes/Report: Color/Clarity yellow Leuk neg Nitrite neg Urobili 0.2 Protein neg pH 7.0 Blood small Sp. Gr. >=1.030 Ketone neg
--- NOTE | 2024-01-03 08:39 | US_ITS ---
FINAL REPORT CLINICAL HISTORY: CHOLECYSTITIS COMPARISON: None FINDINGS: ULTRASOUND ABDOMEN There is fatty infiltration of the liver. Spleen has a normal sonographic appearance. The gallbladder is absent per reported history. There is a cystic area within the gallbladder fossa with hyperechoic rim measuring up to 9 mm in thickness. This could represent postoperative fluid collection in the gallbladder fossa. No biliary ductal dilatation is identified. Kidneys show no evidence of mass or obstruction. Pancreas is not well visualized. IVC and aorta are grossly unremarkable. There is no obvious fluid collection. IMPRESSION: Fatty liver. No biliary obstruction. Complex fluid collection in the gallbladder fossa could represent hematoma or even abscess. CT with contrast recommended. Reviewed, Interpreted and Dictated by Jamil Sloan MD Transcribed by Alejandra Baez Authenticated and [facility] [place]
== END 2024-01-03 23:59 | disposition home or self-care (01) ==
LOC: RAD 08:33
PROVIDERS: PCP Internal Medicine Adolescent Medicine; Visit Provider Nurse Practitioner Family
DX: K81.9 Cholecystitis, unspecified (principal); R31.29 Other microscopic hematuria; R10.9 Unspecified abdominal pain
CPT/HCPCS: 76700

== ENCOUNTER 2024-01-06 14:21 | Emergency (ER) | payer MEDICARE, SELFPAY ==
--- NOTE | 2024-01-06 14:30 | ED_ITS ---
<Statement entered by Lena Diaz DO - 01/06/24 20:17> I was consulted by the HARVINDER, and we discussed the complexity of the problems being addressed. I approved the treatment and management plan for this patient's care in the emergency department, thus performing a substantive portion of the medical decision making. Lena Diaz DO Discharge Plan Disposition Patient Disposition: Home, Self-Care Condition: Good Prescriptions Prescriptions: No Action carvedilol 6.25 mg Tablet 6.25 mg PO BID Rx Instructions: must administer with a meal/food Metamucil 3.4 gram/5.4 gram Powder 1 tbsp PO DAILY Rx Instructions: mix into at least 8 oz of water or juice before administering potassium chloride 10 mEq Capsule, Extended Release 10 meq PO DAILY cyanocobalamin (vitamin B-12) [Dodex] 1,000 mcg/mL Solution 1,000 mcg IM MONTHLY furosemide 40 mg tablet 40 mg PO DAILY omeprazole 20 mg capsule,delayed release(DR/EC) 40 mg PO DAILY Xarelto 20 mg Tablet 20 mg PO QPMWITHMEAL levofloxacin 750 mg tablet 750 mg PO DAILY 4 Days Qty: 4 0RF Rx Instructions: first dose in morning of 12/30/23 atorvastatin 40 MG tablet 40 mg PO DAILY meloxicam 15 MG tablet 15 mg PO DAILY tramadol 50 MG tablet 50 mg PO TIDP PRN (Reason: Moderate Pain) isosorbide mononitrate 60 MG tablet extended release 24 hr 60 mg PO DAILY tamsulosin 0.4 MG capsule 0.4 mg PO HS ascorbic acid (vitamin C) 1,000 MG tablet 1,000 mg PO DAILY Referrals Follow up/Referrals: Mali Hancock APRN [Primary Care Provider] - See instructions Alex Thomas MD [Staff Physician] - See instructions (Syncope and collapse) Activity Restrictions/Add. Instructions Additional Instructions/Restrictions: Please call and schedule follow-up appointment with cardiology in the morning. Please follow-up with your PCP in 48 hours. Return to the emergency department for any worsening signs or symptoms as needed. Clinical Impressions Clinical Impression: Syncope and collapse Instructions Patient Instructions: DI for Syncope in Adults (Fainting) Print Language Print Language: Qatari Discharge ED Provider: Lena Diaz General Adult HPI General Chief complaint: Syncope Stated complaint: head ache passing out Time Seen by Provider: 01/06/24 14:25 History of Present Illness HPI narrative: Patient presents for evaluation of syncope and collapse. Patient has had several episodes of syncope preceded by a headache and pounding heart beat . Patient does not recall when he does pass out however he does not have postictal episodes. Patient has no history of seizures. He does have a cardiovascular history with stents. Patient was seen in this ER on 12/27/2023 and was admitted for for pyelonephritis. Patient has a past medical history of hypertension hyperlipidemia coronary artery disease obesity and is oxygen dependent post- COVID. Patient had a cholecystectomy in November at [facility]. Currently he has no symptoms and denies chest pain shortness of breath fever chills hemoptysis hematochezia melena nausea vomiting diarrhea Related Data Home Medications ?Medication ?Instructions ?Recorded ?Confirmed atorvastatin 40 mg tablet 40 mg PO DAILY 07/18/18 12/27/23 isosorbide mononitrate 60 mg 60 mg PO DAILY 07/18/18 12/27/23 tablet,extended release 24 hr meloxicam 15 mg tablet 15 mg PO DAILY 07/18/18 12/27/23 tamsulosin 0.4 mg capsule 0.4 mg PO HS 07/18/18 12/27/23 tramadol 50 mg tablet 50 mg PO TIDP PRN Moderate Pain 07/18/18 12/27/23 ascorbic acid (vitamin C) 1,000 mg 1,000 mg PO DAILY 12/25/21 12/27/23 tablet carvedilol 6.25 mg tablet 6.25 mg PO BID 12/27/23 12/27/23 cyanocobalamin (vitamin B-12) 1,000 mcg IM MONTHLY 12/27/23 12/27/23 1,000 mcg/mL injection solution (Dodex) furosemide 40 mg tablet 40 mg PO DAILY 12/27/23 12/27/23 omeprazole 20 mg capsule,delayed 40 mg PO DAILY 12/27/23 12/27/23 release potassium chloride 10 mEq 10 meq PO DAILY 12/27/23 12/27/23 capsule,extended release psyllium husk 3.4 gram/5.4 gram 1 tbsp PO DAILY 12/27/23 12/27/23 oral powder (Metamucil) rivaroxaban 20 mg tablet (Xarelto) 20 mg PO QPMWITHMEAL 12/27/23 12/27/23 Previous Rx's ?Medication ?Instructions ?Recorded levofloxacin 750 mg tablet 750 mg PO DAILY 4 days #4 tabs 12/29/23 Allergies Allergy/AdvReac Type Severity Reaction Status Date / Time No Known Drug Allergies Allergy Unknown Verified 11/10/18 11:17 [facility] Disclaimer: The information contained in this section may have been updated after the patient was seen, as this information can be updated by other users. Medical History (Updated 01/06/24 @ 17:56 by FUNMI Layne) Sepsis Obesity NSTEMI (non-ST elevated myocardial infarction) CAD (coronary artery disease) HTN (hypertension) HLD (hyperlipidemia) BPH (benign prostatic hyperplasia) COVID-19 Non-STEMI (non-ST elevated myocardial infarction) Unstable angina pectoris Family History Other Cancer Social History (Updated 12/27/23 @ 07:37 by Paola Pedraza RN) Smoking Status: Former smoker tobacco type: smokeless tobacco second hand exposure: No alcohol intake: never substance use type: denies use current occupational status: retired and disabled Travel in the last 8 weeks: None household members: spouse housing: house current occupational exposures/hazards: No caffeine: Yes ROS Obtained: Yes Systems reviewed as appropriate & no additional complaints except as documented Physical Exam General General appearance: alert and in no apparent distress Head Head exam: atraumatic and normal inspection Eye Eye exam: Present normal appearance and EOMI ENT ENT exam: Present normal exam Neck Neck exam: Present normal inspection and full ROM; Absent tenderness Chest Chest inspection: Present normal inspection and symmetric chest wall rise; Absent tenderness Respiratory Respiratory exam: Present normal lung sounds bilaterally; Absent respiratory distress, wheezes or stridor Cardiovascular Cardiovascular exam: Present regular rate, normal rhythm and normal heart sounds Abdominal Exam Abdominal exam: Present soft and normal bowel sounds; Absent distention, tenderness, guarding, rebound or rigidity Extremities Exam Extremities exam: Present normal inspection and full ROM Back Exam Back exam: Present normal inspection and full ROM Neurological Exam Neurological exam: Present alert, oriented X3, CN II-XII intact and normal gait; Absent motor sensory deficit Psychiatric Psychiatric exam: Present normal affect and normal mood Skin Skin exam: Present warm, dry, intact and normal color Medical Decision Making Medical Records Medical records reviewed: Yes I reviewed the patient's medical records. Duarte Inquiry Pt receiving controlled substance: No Vital Signs: 01/06/24 14:38 01/06/24 14:41 01/06/24 14:42 Temperature 97.8 F Temperature Source Oral Pulse Rate 71 69 Pulse Rate [Left Radial] 72 Respiratory Rate 20 Blood Pressure 128/73 111/68 Blood Pressure [Right Arm] 128/73 Blood Pressure Mean [Right Arm] 91 Blood Pressure Source Blood Pressure Position 02 Sat by Pulse Oximetry 98 95 97 Oxygen Delivery Method Room Air Room Air Oxygen Flow Rate (LPM) 01/06/24 18:20 Temperature 98.0 F Temperature Source Oral Pulse Rate 77 Pulse Rate [Left Radial] Respiratory Rate 12 Blood Pressure 142/80 H Blood Pressure [Right Arm] Blood Pressure Mean [Right Arm] Blood Pressure Source Automatic Cuff Blood Pressure Position Sitting 02 Sat by Pulse Oximetry Oxygen Delivery Method Nasal Cannula Oxygen Flow Rate (LPM) 2 Lab Data Lab results reviewed: Yes I reviewed the patient's lab results. Lab Results 01/06/24 15:29: WBC 7.5, RBC 4.52 L, Hgb 14.4, Hct 43.6, MCV 96.6 H, MCH 31.9 H, MCHC 33.0, RDW 14.9, Plt Count 150, MPV 7.9, Neut % (Auto) 70.5, Lymph % (Auto) 19.1, [place] % (Auto) 6.7, Eos % (Auto) 2.8, Baso % (Auto) 0.9, Neut # (Auto) 5.3, Lymph # (Auto) 1.4, [place] # (Auto) 0.5, Eos # (Auto) 0.2, Baso # (Auto) 0.1, PT 11.6, INR 1.04, Sodium 138, Potassium 4.3, Chloride 105, Carbon Dioxide 29, Anion Gap 8.3, BUN 22 H, Creatinine 0.80, Estimated Creat Clear 108, Estimated GFR 96, Est GFR ( Amer) 116, Glucose 93, Calcium 8.7, Magnesium 1.7, Total Bilirubin 0.6, AST 27, ALT 18, Alkaline Phosphatase 59, Troponin I < 0.01, Total Protein 6.0 L, Albumin 3.5, Globulin 2.5, Albumin/Globulin Ratio 1.4, TSH 0.35 L, Free T4 1.38, Thyroxine (T4) 10.2 01/06/24 17:45: Troponin I < 0.01 01/06/24 15:29 01/06/24 15:29 Orders (Tests/Meds): ED MEDICATIONS Discontinued Medications Generic Name Dose Route Start Last Admin Trade Name Tawanda PRN Reason Stop Dose Admin Lactated Ringer's 1,000 mls @ 999 mls/hr 01/06/24 14:40 01/06/24 15:58 Lactated Ringer's 1000 Ml Bag IV 01/06/24 15:40 999 mls/hr .Q1H1M ONE Administration Iopamidol 170 ml 01/06/24 16:39 01/06/24 18:11 Iopamidol-370 (76%);100ml Bottle IV 01/06/24 16:40 170 ml ONCE ONE Administration Sodium Chloride 50 ml 01/06/24 16:39 01/06/24 18:10 0.9 % Sodium Chloride 50 Ml Vial IV 01/06/24 16:40 50 ml ONCE ONE Administration Sodium Chloride 10 ml 01/06/24 16:39 01/06/24 18:10 Sodium Chloride 0.9% 10ml Syr (Rad Only) IV 01/06/24 16:40 10 ml ONCE ONE Administration ORDERS Category Date Time Status CT angio head Stat Cat Scan 01/06/24 14:[address] angio neck Stat Cat Scan 01/06/24 14:[address] head/brain wo con Stat Cat Scan 01/06/24 14:43 Completed CTA Chest [CT angio chest PE protocol] Stat Cat Scan 01/06/24 15:20 Completed CBC w/Auto Diff [Complete Blood Count Auto Diff] Stat Lab 01/06/24 15:29 Completed CMP [Comprehensive Metabolic Panel] Stat Lab 01/06/24 15:29 Completed Free T4 (Free Thyroxine) Stat Lab 01/06/24 15:29 Completed INR [Prothrombin Time INR] Stat Lab 01/06/24 15:29 Completed Magnesium Stat Lab 01/06/24 15:29 Completed T4 (Thyroxine) Stat Lab 01/06/24 15:29 Completed TSH [Thyroid Stimulating Hormone] Stat Lab 01/06/24 15:29 Completed Triiodothyronine (T3) Free Stat Lab 01/06/24 17:02 Received Triiodothyronine (T3) Total Stat Lab 01/06/24 17:02 Received Trop I [Troponin I] Stat Lab 01/06/24 15:29 Completed Troponin I Q3H Lab 01/06/24 17:45 Completed HEART Score History (anamnesis): Slightly suspicious ECG: Normal Age: >65 years Risk factors: Atherosclerosis history Medical Decision Narrative: In summary patient is a 68-year-old male who presents to the emergency department for evaluation of syncope and collapse. Patient is hemodynamically stable currently upon arrival, afebrile. Physical exam shows a morbidly obese 68-year-old male who currently has no focal symptoms and a nonfocal exam with normal heart sounds normal breath sounds [place] Coma Score 15 no neck pain back pain abdominal pain chest pain.. Differential diagnosis includes vasovagal syncope versus arrhythmia versus intercranial lesion etc. Initial workup will be conducted with hematologic labs CT scan of the head without contrast twelve- lead EKG. Initial interventions are deferred at this time as patient has no focal symptoms. Initial workup reviewed by me shows that his TSH is 0.35 with a free T41.38 And a T4 of 10.2 and the hematologic labs are nonactionable, his troponin is undetectable. My informal interpretation of his CT imaging shows no acute processes prior to radiology read. Upon repeat evaluation patient remains symptom-free. Given this patient is appropriate for discharge with close follow-up with his PCP in 48 hours and cardiology within 48 hours with strict return precautions. Critical Care Critical Care Time Critical Care Time: No
--- OUTSIDE RECORDS SUMMARY | 2024-01-06 14:33 | XMS_ITS ---
Author Organization [facility] Address [address] [facility] 36 [facility] [address] [place] [address] Care Team Providers Care Scale Model Maker Name Role Phone Steven Keating Primary Care Provider [phone] Mali Hancock [phone] REASON FOR VISIT med MEDICATIONS Medication SIG (Take, Route, Fr equency, Duration) Notes Start Date End Date Status levoFLOXacin 750 mg 1 tab(s) orally ever y 24 hours for 10 days 12/31/2023 Active Encounters Encounter Location Date Provider Diagnosis [address] [address] 01/02/2024 Steven Keating PLAN OF TREATMENT Medication Medication Name Sig Start Date Stop Date Notes levoFLOXacin 750 mg 1 tab(s) orally ever y 24 hours for 10 days 12/31/2023 Next Appt Details Provider Name:Mali osborne, 01/30/2024 09:15:00 AM, [address] [facility] 36 [facility], [address], [place], [address], Provider Name:Steven Keating, 03/03/2024 09:45:00 AM, [address] [place] [address], [phone], Progress Notes * Nazario KWON RDOB: (68 yo M)Acc No.[id number]:01/02/2024 Patient:??Nazario KWON :1955?Age:68 Y?Sex:Gavin carnes Address:[address], [place] [address] * Refills?? Refill levoFLOXacin tablet, 750 mg, orally, 10, 1 tab(s), every 24 hours, 10 days, Refills=0 * true * Date:??
--- OUTSIDE RECORDS SUMMARY | 2024-01-06 14:33 | XMS_ITS | Clinical Summary ---
Author Organization [facility] Address [address] [place] [address] Phone Care Team Providers Care Computer Forensic Specialist Name Role Phone Thiago Kidd MD [phone] Conditions or Problems No information available. Medications No information available. Medications Administered No information available. Allergies, Adverse Reactions, Alerts No information available. Results No information available. Plan of Care No information available. Procedures No information available. Vital Signs No information available. Immunizations No information available. Advance Directives No information available.
--- OUTSIDE RECORDS SUMMARY | 2024-01-06 14:33 | XMS_ITS ---
Author Organization [facility] Address [address] [facility] [address] [facility] [address] [place], [place] [address] Care Team Providers Care Frog Catcher Name Role Phone Steven Keating Primary Care Provider Mali Hancock [phone] MEDICATIONS Medication SIG (Take, Route, Frequency, Duration) Notes Start Date End Date Status nystatin topical 546795 units/g 1 jeffery applied topically 3 times a day for 7 days 01/02/2024 Active Encounters Encounter Location Date Provider Diagnosis [facility] [address] [facility] [address] [place], [place] [address] 01/02/2024 Mali Hancock PLAN OF TREATMENT Medication Medication Name Sig Start Date Stop Date Notes nystatin topical 062655 units/g 1 jeffery applied topically 3 times a day for 7 days 01/02/2024 Next Appt Details Provider Name:Mali osborne, 01/30/2024 09:15:00 AM, [address] [facility], [address], [place], [place], [address], Provider Name:Steven Keating, 03/03/2024 09:45:00 AM, [address] [place] [address], [phone], Progress Notes * Nazario KWON RDOB: (68 yo M)Acc No.[id number]:01/02/2024 Patient:??Nazario KWON :1955?Age:68 Y?Sex:Gavin carnes Address:[address] [place] [address] * Refills?? Start nystatin topical powder, 289836 units/g, applied topically, 1, 1 jeffery, 3 times a day, 7 days, Refills=2 * true * Date:??
--- OUTSIDE RECORDS SUMMARY | 2024-01-06 14:33 | XMS_ITS ---
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 Name Role Phone Stveen Keating Primary Care Provider Mali Hancock Unavailable [phone] Jasmyne Turner Unavailable [phone] ALLERGIES No Known Allergies REASON FOR VISIT syncope MEDICATIONS Medication SIG (Take, Route, Frequency, Duration) Notes Start Date End Date Status levoFLOXacin 750 mg 1 tab(s) orally ever y 24 hours for 10 days 12/31/2023 Active nystatin topical 024212 units/g 1 jeffery applied topically 3 times a day for 7 days 01/02/2024 Active Osteo Bi-Flex Advanced with Ascorbic Acid and Minerals 2 tab(s) orally once a day for 30 day(s) 12/31/2023 Active magnesium oxide 400 mg 1 tab(s) orally once a day 12/31/2023 Active Tylenol 8 HR Arthritis Pain 650 mg 2 tab(s) orally every 8 hours for 3 day(s) 12/31/2023 Active carvedilol 6.25 mg 1 tab(s) orally 2 ti mes a day Active Dodex 1000 mcg/mL INJECT 1000MCG (1ML) INTRAMUSCULARLY ONCE A MONTH Active furosemide 40 mg 1 tab(s) orally once a day for 30 day(s) 12/31/2023 Active isosorbide mononitrate 60 mg TAKE ONE TABLET BY MOUTH EVERY DAY orally once a day Active Vitamin D3 125 mcg 1 cap(s) orally once a day for 30 day(s) 12/31/2023 Active Xarelto 20 mg TAKE 1 TABLET ONE TI ME DAILY WITH FOOD Active Vitamin C 500 mg 2 cap orally once a day Active Lipitor 40 mg 1 tab(s) orally once a day Active Flomax 0.4MG 1 capsule orally onc e a day Active traMADol 50 mg 1 tab(s) orally 3 ti mes a day prn 12/24/2023 Active Syringe 1cc 28g 1/2 - for 30 days 03/13/2021 Active nitroglycerin 0.4 mg 1 tab(s) sublingual ly every 5 minutes prn for 30 days Active Metamucil 3.4 g/5.2 g as directed orally once a day for 7 day(s) 12/31/2023 Active potassium chloride 10 mEq 1 cap(s) orally once a day 12/31/2023 Active omeprazole 20 mg 2 caps orally once a day Active Urinozinc Prostate Health Complex Classic Therapeutic Multiple Vitamins with Minerals 1 cap(s) orally once a day Active cyclobenzaprine 5 mg 1 tab(s) orally at HS for 2 weeks 08/16/2016 Active VITAL SIGNS Temperature 97.9 degrees Fahrenheit 01/06/20 24 Oximetry 99%RA 2L 01/06/2024 Heart Rate 72 /min 01/06/2024 Blood pressure systolic 102 mm Hg 01/06/20 24 Blood pressure diastolic 62 mm Hg 024 Height 5 ft 9 in in 01/06/2024 Weight 242 lbs 01/06/2024 BMI 35.73 kg/m2 01/06/2024 Encounters Encounter Location Date Provider Diagnosis [address] [address] 01/06/2024 Jasmyne Turner Syncope, unspecified syncope type R55 ASSESSMENTS Encounter Date Diagnosis Assessment Notes Treatment Notes Treatment Clinical Notes 01/06/2024 Syncope, unspecified syncope type (ICD-10 - R55) PLAN OF TREATMENT Pending Test Test Name Order Date Glucose (in house) 01/06/2024 CBC (INCLUDES DIFF/PLT) (6399) TSH (899) 01/06/2024 COMP METABOLIC PANEL 01/06/2024 Next Appt Details Provider Name:Mali Correa ce, 01/30/2024 09:15:00 AM, [address], [place], [address], Provider Name:Steven Keating, 03/03/2024 09:45:00 AM, [address] [facility] [address], [place], [address], Progress Notes * Nazario KWON RDOB: (68 yo M)Acc No.[id number]:01/06/2024 Progress Notes Patient:??Nazario KWON Provider:??Jasmyne Turner, DIRECTOR OF COLLECTIONS AND ARCHIVES :1955?Age:68 Y?Sex:Ma le Date:01/06/2024 Address:[address] [id number] Pcp:Steven Keating Subjective: * Chief Complaints: * ?1. Syncope. * Medical History:??Hypertensi on, Hypercholestrolemia, degenerative disc disease s/p surgery. On tramadol, coronary artery disease-stents. Evaluated by Dr Redman September 2016, negative GXT with EF 48%, B12 def, BPH, Colonoscopy 2016, Dr Sullivan, Tubular Adenoma and Focal inflammation - Repeated August 2023 at [facility]-1 hyperplastic polyp, [facility] 2019, chronic CAD, no additional intervention needed, [place] Palsy, DVT and PE during COVID 19 infection. * Medications:??Taking Urinozi in Prostate Health Complex Classic Therapeutic Multiple Vitamins with Minerals capsule 1 cap(s) orally once a day , Taking cyclobenzaprine 5 mg tablet 1 tab(s) orally at HS , Taking Syringe 1cc 28g 1/2 - , Taking nitroglycerin 0.4 mg tablet 1 tab(s) sublingually every 5 minutes prn , Taking Metamucil 3.4 g/5.2 g powder for reconstitution as directed orally once a day , Taking potassium chloride 10 mEq capsule, extended release 1 cap(s) orally once a day , Taking omeprazole 20 mg delayed release capsule 2 caps orally once a day , Taking Flomax 0.4MG capsule 1 capsule orally once a day , Taking traMADol 50 mg tablet 1 tab(s) orally 3 times a day prn , Taking Xarelto 20 mg tablet TAKE 1 TABLET ONE TIME DAILY WITH FOOD , Taking Vitamin C 500 mg capsule 2 cap orally once a day , Taking Lipitor 40 mg tablet 1 tab(s) orally once a day , Taking carvedilol 6.25 mg tablet 1 tab(s) orally 2 times a day , Taking Dodex 1000 mcg/mL solution INJECT 1000MCG (1ML) INTRAMUSCULARLY ONCE A MONTH , Taking furosemide 40 mg tablet 1 tab(s) orally once a day , Taking isosorbide mononitrate 60 mg tablet, extended release TAKE ONE TABLET BY MOUTH EVERY DAY orally once a day , Taking Vitamin D3 125 mcg capsule 1 cap(s) orally once a day , Taking Osteo Bi-Flex Advanced with Ascorbic Acid and Minerals tablet 2 tab(s) orally once a day , Taking magnesium oxide 400 mg tablet 1 tab(s) orally once a day , Taking Tylenol 8 HR Arthritis Pain 650 mg tablet, extended release 2 tab(s) orally every 8 hours , Taking levoFLOXacin 750 mg tablet 1 tab(s) orally every 24 hours , Taking nystatin topical 110819 units/g powder 1 jeffery applied topically 3 times a day , Medication List reviewed and reconciled with the patient * Allergies:??N.K.D.A. Objective: * Vitals:??Nurse: meg, Pain: 0, Temp: 97.9, Pulse O2: 99%RA 2L, RR: 20, HR: 72, BP: 102/62, Ht: 5 ft 9 in, Wt: 242, BMI:35.73. Assessment: * Assessment: 1.??Syncope, unspecified syn cope type - R55?? Plan: * Treatment: * * Sign off status: Pending * Provider:??Jasmyne Turner APRN Date :??01/06/2024
--- OUTSIDE RECORDS SUMMARY | 2024-01-06 14:34 | XMS_ITS | Patient Health Record ---
Author Organization [facility] D ABEL Address [address] [place] [address] Care Team Providers Care Audio Video Repairer Name Role Phone Steven Keating Primary Care Provider Mali Hancock Unavailable [phone] McCataJasmyne leahy Unavailable [phone] ALLERGIES No Known Allergies RESULTS Component Value Reference Range Notes Ultrasound : Abdomen Reviewed date:01/06/2024 09:59:21 AM Interpretation: Performing Lab: Notes/Report: Urinalysis Reviewed date:12/23/2023 03:52:40 PM Interpretation: Performing Lab: Notes/Report: Color/Clarity yellow Leuk neg Nitrite neg Urobili 0.2 Protein neg pH 7.0 Blood small Sp. Gr. >=1.030 Ketone neg Bili neg Glucose 500mg Urinalysis Reviewed date:01/02/2024 12:40:32 PM Interpretation: Performing Lab: Notes/Report: Color/Clarity flakito Leuk neg Nitrite neg Urobili 0.2 Protein neg pH 6.0 Blood neg Sp. Gr. >=1.030 Ketone neg Bili neg Glucose neg THYROID PANEL WITH TSH (7444 ) Reviewed date:12/05/2023 03:48:44 PM Interpretation: Performing Lab:CB, [facility] [address], [place] Wdfe[place] Lito Tobar Notes/Report: NON-FASTING; NON-FASTING; NON-FASTING; NON-FASTING; NON-FAST FASTING:YES FASTING: YES T3 UPTAKE 32 22-35 % T4 (THYROXINE), TOTAL 9.1 4.9-10.5 mcg/dL FREE T4 INDEX (T7) 2.9 1.4-3.8 TSH 0.31 0.40-4.50 mIU/L LIPID PANEL, STANDARD (7600) Reviewed date:12/05/2023 03:48:44 PM Interpretation: Performing Lab:ELENA Stroho-[facility] [address] EducationteIn[facility] [place], [facility] HospitalPgfnDG[address] Lito Tobar Notes/Report: NON-FASTING; NON-FASTING; NON-FASTING; NON-FASTING; NON-FAST FASTING:YES FASTING: YES CHOLESTEROL, TOTAL 149 <200 mg/dL HDL CHOLESTEROL 38 > OR = 40 mg/dL TRIGLYCERIDES 132 <150 mg/dL LDL-CHOLESTEROL 88 Reference range: <100 Desirable range <100 mg/dL for primary prevention; <70 mg/dL for patients with CHD or diabetic patients with > or = 2 CHD risk factors. LDL-C is now calculated using the Jad-Nina calculation, which is a validated novel method providing better accuracy than the Friedewald equation in the estimation of LDL-C. Jad SS et al. DEVON. 2013;310(19): 8979-1072 (http://education.Bixti.com.[employer]/faq/FAQ16 4) CHOL/HDLC RATIO 3.9 <5.0 (calc) NON HDL CHOLESTEROL 111 <130 mg/dL (calc) For patients with diabetes plus 1 major ASCVD risk factor, treating to a non-HDL-C goal of <100 mg/dL (LDL-C of <70 mg/dL) is considered a therapeutic option. COMPREHENSIVE METABOLIC PANE L (62831) Reviewed date:12/05/2023 03:48:44 PM Interpretation: Performing Lab:ELENA Stroho-Ocutec [address] Educationtel [facility], [facility] HospitalPyruPL[address] Lito Tobar Notes/Report: NON-FASTING; NON-FASTING; NON-FASTING; NON-FASTING; [...] = 60 mL/min/1.73m2 BUN/CREATININE RATIO SEE NOTE: 6- (calc) Not Reported: BUN and Creatinine are [...] 12 9-46 U/L COMPREHENSIVE METABOLIC PANE L (60472) Reviewed date:01/03/2024 02:11:52 PM Interpretation: Performing Lab:CB, [employer] [facility] [facility] [place], [facility] HospitalOdpwLG[address] Lito Tobar Notes/Report: NON-FASTING; NON-FASTING; NON-FASTING; NON-FASTING GLUCOSE 95 65-99 mg/dL Fasting reference interval UREA NITROGEN (BUN) 12 7-25 mg/dL CREATININE 0.77 0.70-1.35 mg/dL EGFR 97 > OR = 60 mL/min/1.73m2 BUN/CREATININE RATIO SEE NOTE: - (calc) Not Reported: BUN and Creatinine are within reference range. SODIUM 138 135-146 mmol/L POTASSIUM 4.2 3.5-5.3 mmol/L CHLORIDE 100 98-110 mmol/L CARBON DIOXIDE 30 20-32 mmol/L CALCIUM 9.4 8.6-10.3 mg/dL PROTEIN, TOTAL 6.3 6.1-8.1 g/dL ALBUMIN 3.7 3.6-5.1 g/dL GLOBULIN 2.6 1.9-3.7 g/dL (calc) ALBUMIN/GLOBULIN RATIO 1.4 1.0-2.5 (calc) BILIRUBIN, TOTAL 0.7 0.2-1.2 mg/dL ALKALINE PHOSPHATASE 64 35-144 U/L AST 15 10-35 U/L ALT 9 9-46 U/L COMPREHENSIVE METABOLIC PANE L (42173) Reviewed date:12/25/2023 10:23:45 AM Interpretation: Performing Lab:ELENA Tobii Technology355 Hezmedia InteractiveLuverne Medical CenterChxnQS[address] Lito Tobar Notes/Report: NON-FASTING; NON-FASTING; NON-FASTING GLUCOSE [...] 12 9-46 U/L COMPREHENSIVE METABOLIC PANE L (14780) Reviewed date:11/27/2023 03:25:55 PM Interpretation: Performing Lab:ELENA Video Blocks O[address] [employer] [facility], [facility] HospitalEojqFP[address] Lito Tobar Notes/Report: NON-FASTING; NON-FASTING GLUCOSE 94 [...] 16 10-35 U/L ALT 11 9-46 U/L MAGNESIUM (622) Reviewed date:01/03/2024 02:11:52 PM Interpretation: Performing Lab:ELENA, Stro[facility]ec [address] P[address]T, [facility] HospitalAqjgZS[address] Lito Tobar Notes/Report: NON-FASTING; NON-FASTING; NON-FASTING; NON-FASTING MAGNESIUM 1.9 1.5-2.5 mg/dL MAGNESIUM (622) Reviewed date:12/05/2023 03:48:44 PM Interpretation: Performing Lab:ELENA [address]Towne[address], [facility] HospitalYkhiON[address] Lito Tobar Notes/Report: NON-FASTING; NON-FASTING; NON-FASTING; NON-FASTING; NON-FAST FASTING:YES FASTING: YES MAGNESIUM 2.1 1.5-2.5 mg/dL CBC (INCLUDES DIFF/PLT) (639 9) Reviewed date:12/05/2023 03:48:44 PM Interpretation: Performing Lab:ELENA Stroho[address], [facility] HospitalRtimVW[address] Lito Tobar Notes/Report: NON-FASTING; NON-FASTING; NON-FASTING; NON-FASTING; NON-FAST FASTING:YES FASTING: YES WHITE BLOOD CELL COUNT 9.3 3.8-10.8 Thousand/ uL RED BLOOD CELL COUNT 4.90 4.20-5.80 Million/uL HEMOGLOBIN 14.8 13.2-17.1 g/dL HEMATOCRIT 45.8 38.5-50.0 % MCV 93.5 80.0-100.0 fL MCH 30.2 27.0-33.0 pg MCHC 32.3 32.0-36.0 g/dL RDW 14.4 11.0-15.0 % PLATELET COUNT 177 140-400 Thousand/uL MPV 9.9 7.5-12.5 fL ABSOLUTE NEUTROPHILS 6129 7632-2592 cells/uL ABSOLUTE LYMPHOCYTES 2176 850-3900 cells/uL ABSOLUTE MONOCYTES 679 200-950 cells/uL ABSOLUTE EOSINOPHILS 270 15-500 cells/uL ABSOLUTE BASOPHILS 47 0-200 cells/uL NEUTROPHILS 65.9 LYMPHOCYTES 23.4 MONOCYTES 7.3 EOSINOPHILS 2.9 BASOPHILS 0.5 CBC (INCLUDES DIFF/PLT) (639 9) Reviewed date:01/03/2024 02:11:52 PM Interpretation: Performing Lab:ELENA, Stroho-[employer] Companye[address] EducationteBringme, [place] ArtJzxoGT[address] Lito Tobar Notes/Report: NON-FASTING; NON-FASTING; NON-FASTING; NON-FASTING WHITE BLOOD CELL COUNT 5.3 3.8-10.8 Thousand/ uL RED BLOOD CELL COUNT 4.66 4.20-5.80 Million/uL HEMOGLOBIN 14.4 13.2-17.1 g/dL HEMATOCRIT 45.0 38.5-50.0 % MCV 96.6 80.0-100.0 fL MCH 30.9 27.0-33.0 pg MCHC 32.0 32.0-36.0 g/dL RDW 13.8 11.0-15.0 % PLATELET COUNT 206 140-400 Thousand/uL MPV 10.0 7.5-12.5 fL ABSOLUTE NEUTROPHILS 3010 0537-3863 cells/uL ABSOLUTE LYMPHOCYTES 2520 369-0483 cells/uL ABSOLUTE MONOCYTES 482 200-950 cells/uL ABSOLUTE EOSINOPHILS 170 15-500 cells/uL ABSOLUTE BASOPHILS 42 0-200 cells/uL NEUTROPHILS 56.8 LYMPHOCYTES 30.1 MONOCYTES 9.1 EOSINOPHILS 3.2 BASOPHILS 0.8 CBC (INCLUDES DIFF/PLT) (639 9) Reviewed date:12/25/2023 10:23:45 AM Interpretation: Performing Lab:ELENA, Stroho-[employer]e[address], [place] ArtFcvqST[address] Lito Tobar Notes/Report: NON-FASTING; NON-FASTING; NON-FASTING WHITE BLOOD CELL COUNT 7.3 3.8-10.8 Thousand/ uL RED BLOOD CELL COUNT 4.33 4.20-5.80 Million/uL HEMOGLOBIN 13.1 13.2-17.1 g/dL HEMATOCRIT 42.7 38.5-50.0 % MCV 98.6 80.0-100.0 fL MCH 30.3 27.0-33.0 pg MCHC 30.7 32.0-36.0 g/dL RDW 14.9 11.0-15.0 % PLATELET COUNT 192 140-400 Thousand/uL MPV 10.1 7.5-12.5 fL ABSOLUTE NEUTROPHILS 4898 9866-9660 cells/uL ABSOLUTE LYMPHOCYTES 7257 145-3326 cells/uL ABSOLUTE MONOCYTES 482 200-950 cells/uL ABSOLUTE EOSINOPHILS 190 15-500 cells/uL ABSOLUTE BASOPHILS 37 0-200 cells/uL NEUTROPHILS 67.1 LYMPHOCYTES 23.2 MONOCYTES 6.6 EOSINOPHILS 2.6 BASOPHILS 0.5 CBC (INCLUDES DIFF/PLT) (639 9) Reviewed date:11/27/2023 03:25:55 PM Interpretation: Performing Lab:ELENA, Stroho-[employer]e[address], [place] ArtBptxOQ[address] Lito Tobar Notes/Report: NON-FASTING; NON-FASTING WHITE BLOOD CELL COUNT 6.8 3.8-10.8 Thousand/ uL RED BLOOD CELL COUNT 4.67 4.20-5.80 Million/uL HEMOGLOBIN 14.5 13.2-17.1 g/dL HEMATOCRIT 44.6 38.5-50.0 % MCV 95.5 80.0-100.0 fL MCH 31.0 27.0-33.0 pg MCHC 32.5 32.0-36.0 g/dL RDW 14.4 11.0-15.0 % PLATELET COUNT 165 140-400 Thousand/uL MPV 9.6 7.5-12.5 fL ABSOLUTE NEUTROPHILS 3896 3942-6312 cells/uL ABSOLUTE LYMPHOCYTES 5643 966-6723 cells/uL ABSOLUTE MONOCYTES 734 200-950 cells/uL ABSOLUTE EOSINOPHILS 197 15-500 cells/uL ABSOLUTE BASOPHILS 61 0-200 cells/uL NEUTROPHILS 57.3 LYMPHOCYTES 28.1 MONOCYTES 10.8 EOSINOPHILS 2.9 BASOPHILS 0.9 VITAMIN B12/FOLATE, SERUM PA JACQUE (6681) Reviewed date:12/05/2023 03:48:45 PM Interpretation: Performing Lab:ELENA Stroho-[address]ec [address], The Caddy CompanyZcczFH[address] Lito Tobar Notes/Report: NON-FASTING; NON-FASTING; NON-FASTING; NON-FASTING; NON-FAST FASTING:YES FASTING: YES VITAMIN B12 456 508-2630 pg/mL FOLATE, SERUM 10.7 Reference Range Low: <3.4 Borderline: 3.4-5.4 Normal: >5.4 CULTURE, URINE, ROUTINE (395 ) Reviewed date:12/25/2023 10:23:45 AM Interpretation: Performing Lab:ELENA Stroho-Ocutec [address], [facility] HospitalOpijMC[address] Lito Tobar Notes/Report: NON-FASTING; NON-FASTING; NON-FASTING CULTURE, URINE, ROUTINE SEE NOTE CULTURE, URINE, ROUTINE Micro Number: [id number] Test Status: Final Specimen Source: Urine, clean catch Specimen Quality: Adequate Result: No Growth CULTURE, URINE, ROUTINE (395 ) Reviewed date:01/04/2024 01:05:51 PM Interpretation: Performing Lab:ELENA Stroho-[employer]e[address] [place], [facility] CenterUdrdIZ[address] Lito Tobar Notes/Report: NON-FASTING; NON-FASTING; NON-FASTING; NON-FASTING CULTURE, URINE, ROUTINE SEE NOTE CULTURE, URINE, ROUTINE Micro Number: [id number] Test Status: Final Specimen Source: Urine Specimen Quality: Adequate Result: No Growth BASIC [...] Note Unless otherwise noted testing performed at: [address] [address] Chris Lutz MD CLIA: [id number] HEPATIC FUNCTION PANEL Reviewed date:11/18/2023 09:06:03 AM Interpretation: Performing Lab: Notes/Report: TOTAL PROTEIN 6.4 6.4-8.2 g/dL ALBUMIN 3.1 3.4-5.0 g/dL BILIRUBIN DIRECT 0.2 0.0-0.3 mg/dL BILIRUBIN TOTAL 0.8 0.4-1.5 mg/dL AST (SGOT) 40 15-37 U/L ALT (SGPT) 35 12-78 U/L ALK PHOSPHATASE 68 Note Unless otherwise noted testing performed at: [address] [id number] Chris Lutz MD CLIA: [id number] CBC AUTO W DIFF Reviewed date:11/13/2023 04:10:49 [...] Note Unless otherwise noted testing performed at: [address] [address] Chris Lutz MD CLIA: [id number] MEDICATIONS Medication SIG (Take, Route, Frequency, Duration) Notes Start Date End Date Status Vitamin C 500 mg 2 cap orally once a day Active Urinozinc Prostate Health Complex Classic Therapeutic Multiple Vitamins with Minerals 1 cap(s) orally once a day Active Lipitor 40 mg 1 tab(s) orally once a day Active Xarelto 20 mg TAKE 1 TABLET ONE TI ME DAILY WITH FOOD Active levoFLOXacin 750 mg 1 tab(s) orally ever y 24 hours for 10 days 12/31/2023 Active nystatin topical 812712 units/g 1 jeffery applied topically 3 times a day for 7 days 01/02/2024 Active cyclobenzaprine 5 mg 1 tab(s) orally at HS for 2 weeks 08/16/2016 Active carvedilol 6.25 mg 1 tab(s) orally 2 ti mes a day Active Syringe 1cc 28g 1/2 - for 30 days 03/13/2021 Active Dodex 1000 mcg/mL INJECT 1000MCG (1ML) INTRAMUSCULARLY ONCE A MONTH Active nitroglycerin 0.4 mg 1 tab(s) sublingual ly every 5 minutes prn for 30 days Active furosemide 40 mg 1 tab(s) orally once a day for 30 day(s) 12/31/2023 Active Metamucil 3.4 g/5.2 g as directed orally once a day for 7 day(s) 12/31/2023 Active isosorbide mononitrate 60 mg TAKE ONE TABLET BY MOUTH EVERY DAY orally once a day Active potassium chloride 10 mEq 1 cap(s) orally once a day 12/31/2023 Active Vitamin D3 125 mcg 1 cap(s) orally once a day for 30 day(s) 12/31/2023 Active omeprazole 20 mg 2 caps orally once a day Active Osteo Bi-Flex Advanced with Ascorbic Acid and Minerals 2 tab(s) orally once a day for 30 day(s) 12/31/2023 Active Flomax 0.4MG 1 capsule orally onc e a day Active magnesium oxide 400 mg 1 tab(s) orally once a day 12/31/2023 Active traMADol 50 mg 1 tab(s) orally 3 ti mes a day prn 12/24/2023 Active Tylenol 8 HR Arthritis Pain 650 mg 2 tab(s) orally every 8 hours for 3 day(s) 12/31/2023 Active IMMUNIZATIONS Vaccine Route Administration Date Status Comme nts Arexvy IM Intramuscular 06/19/2023 Administered Boostrix IM Intramuscular 12/03/2023 Administered Fluvirin--Influenza vaccine 3+ year IM Intramuscular 03/24/2009 Administered FLUZONE 6MO - OLDER IM Intramuscular 03/05/2019 Administer ed Fluzone High Dose IM Intramuscular 03/10/2020 Administered Fluzone High Dose IM Intramuscular 03/06/2021 Administered Fluzone High Dose IM Intramuscular 02/28/2022 Administered Fluzone High Dose IM Intramuscular 03/07/2023 Administered Influenza (Fluzone)--Medicare only IM Intramuscular 03/23/2011 Administered Influenza (Fluzone)--Medicare only IM Intramuscular 03/20/2012 Administered Influenza (Fluzone)--Medicare only IM Intramuscular 03/30/2016 Administered Influenza (Fluzone)--Medicare only IM Intramuscular 02/18/2017 Administered Influenza (Fluzone)--Medicare only IM Intramuscular 02/27/2018 Administered Influenza-Fluzone 3+years (NON-MEDICARE) IM Intramuscular 04/21/2015 Administered Pneumovax 23 IM Intramuscular 02/18/2017 Administered Pneumovax 23 IM Intramuscular 02/28/2022 Administered Prevnar PCV-13 (Pneumococcal conjugate 13) IM Intramuscular 12/07/2019 Administered SHINGRIX IM Intramuscular 12/03/2023 Administered SOCIAL HISTORY Sex Assigned At : Social History Observation Description Sex Assigned At Unknown PROBLEMS Problem Type ICD Code Onset Dates Problem Status W/U Status Risk SNOMED Code Notes Problem Hyperlipidemia, unspecified (E78.5) Active confirmed 03350208 Problem Essential hypertension (I10) Active confirmed 12912933 Problem B12 deficiency (E53.8) Active confirmed 922305547 Problem BMI 40.0-44.9, adult (Z68.41) Active confirmed 170647823 Problem BMI 39.0-39.9,adult (Z68.39) Active confirmed 939166664 Problem Hx pulmonary embolism (Z86.711) Active confirmed 842509662 Problem Coronary artery disease involving ambler coronary artery of ambler heart without angina pectoris (I25.10) Active confirmed 0878391641294 Problem Primary osteoarthritis of right knee (M17.11) Active confirmed 143455334033574 Problem Benign non-nodular prostatic hyperplasia without lower urinary tract symptoms (N40.0) Active confirmed 323043850 Problem FCI current use of anticoagulant (Z79.01) Active confirmed 077294242 Problem Spinal stenosis, other region (M48.00) Active confirmed 67141136 Problem Arthropathy, lower leg (M12.9) Active confirmed 755430657 Problem NSTEMI (non-ST elevated myocardial infarction) (I21.4) Active confirmed 52317816 Problem FCI current use of opiate analgesic (Z79.891) Active confirmed 278399593670590 Problem Pulmonary embolism and infarction (I26.99) Active confirmed 504140779438214 Problem History of coronary artery disease (Z86.79) Active confirmed 981561775 Problem Chronic diastolic CHF (congestive heart failure) (I50.32) Active confirmed 405297060 Problem Acute deep vein thrombosis (DVT) of right lower extremity, unspecified vein (I82.401) Active confirmed 311432915127 Problem Smokeless tobacco use (Z72.0) Active confirmed 108777287 Problem Acute hypoxemic respiratory failure (J96.01) Active confirmed 999733602 Problem Chronic hypoxemic respiratory failure (J96.11) Active confirmed 272805559 Problem COVID (U07.1) Active confirmed 78317020 6 Problem S/P cholecystectomy (Z90.49) Active confirmed 327472363 VITAL SIGNS Heart Rate 72 /min 01/06/2024 Temperature 97.9 degrees Fahrenheit 01/06/2024 Oximetry 99%RA 2L 01/06/2024 Blood pressure diastolic 62 mm Hg 01/06/2024 Height 5 ft 9 in in 01/06/2024 Blood pressure systolic 102 mm Hg 01/06/2024 Weight 242 lbs 01/06/2024 BMI 35.73 kg/m2 01/06/2024 Encounters Encounter Location Date Provider Diagnosis [facility] [address] [place] [address] 02/06/2023 Steven Besson [facility] [address] [address] 02/14/2023 Steven Besson Spinal stenosis, oth er region M48.00 [facility] [address] [address] 04/05/2023 Steven Besson [facility] [address] [facility] [address] [place] [address] 09/09/2023 Steven Besson [facility] [address] [facility] [address] [place] [address] 11/12/2023 Steven Besson [facility] [address] [address] 11/14/2023 Steven Besson S/P cholecystectomy Z90.49 [facility] [address] [facility] [address] [place] [address] 12/20/2023 Steven Besson [facility] [address] [place] [address] 12/27/2023 Mali Karissa Arthropathy, lower l eg M12.9 [facility] [address] [place] [address] 12/30/2023 Mali Karissa [facility] [address] [place] [address] 12/30/2023 Jasmyne McNees Cholecystitis K81.9 [facility] [address] [address] 01/02/2024 Mali Karissa Microscopic hematuri a R31.29 and Acute abdominal pain R10.9 [facility] [address] [place] [address] 01/02/2024 Steven Besson [facility] [address] [place] [address] 01/02/2024 Mali Karissa [facility] [address] [place] [address] 12/03/2023 Steven Besson Essential hypertensi on I10 ; Hyperlipidemia, unspecified E78.5 ; Coronary artery disease involving ambler coronary artery of ambler heart without angina pectoris I25.10 ; B12 deficiency E53.8 ; Myalgia M79.10 ; Routine medical exam Z00.00 ; Encounter for immunization Z23 and Encounter for immunization Z23 [facility] [address] [place] [address] 10/29/2023 Steven Besson Abdominal pain, generalized R10.84 [facility] [address] [address] 01/16/2023 Jasmyne McNees Ingrown toenail of r ight foot with infection L60.0 [facility] [address] [address] 01/06/2024 Jasmyne McNees Syncope, unspecified syncope type R55 [facility] [address] [address] 02/06/2023 Mali Karissa Essential hypertensi on I10 ; Spinal stenosis, other region M48.00 ; Chronic diastolic CHF (congestive heart failure) I50.32 ; Coronary artery disease involving ambler coronary artery of ambler heart without angina pectoris I25.10 ; Pulmonary embolism and infarction I26.99 ; B12 deficiency E53.8 ; Hyperlipidemia, unspecified E78.5 ; Arthropathy, lower leg M12.9 ; termite helper current use of anticoagulant Z79.01 and BMI 39.0-39.9,adult Z68.[address] [facility] [address] [address] 06/19/2023 Mali Hancock Essential hypertensi on I10 ; Chronic hypoxemic respiratory failure J96.11 ; Spinal stenosis, other region M48.00 ; Chronic diastolic CHF (congestive heart failure) I50.32 ; Pulmonary embolism and infarction I26.99 ; Arthropathy, lower leg M12.9 ; Bilious vomiting with nausea R11.14 and Encounter for immunization Z23 [facility] [address] [address] 09/04/2023 Mali Karissa Essential hypertensi on I10 ; Chronic hypoxemic respiratory failure J96.11 ; Spinal stenosis, other region M48.00 ; Chronic diastolic CHF (congestive heart failure) I50.32 ; Pulmonary embolism and infarction I26.99 ; Arthropathy, lower leg M12.9 and Bilious vomiting with nausea R11.[address] [facility] [address] [address] 03/07/2023 Steven Keating Immunization(s) administered Z23 [facility] [address] [address] 01/22/2023 Steven Keating Onychomycosis B35.1 and Ingrowing nail with infection L60.[address] [address] 11/13/2023 Mali Karissa S/P cholecystectomy Z90.49 ; Essential hypertension I10 ; History of coronary artery disease Z86.79 ; Chronic diastolic CHF (congestive heart failure) I50.32 ; Chronic hypoxemic respiratory failure J96.11 ; Hx pulmonary embolism Z86.711 and Hospital discharge follow-up Z09 [facility] [address] [place] [address] 11/26/2023 Steven Keating Acute cholecystitis K81.0 ; Coronary artery disease involving ambler coronary artery of ambler heart without angina pectoris I25.10 ; Essential hypertension I10 and Hospital discharge follow-up Z09 [facility] [address] [place], [place] [address] 12/23/2023 Mali Karissa Dysuria R30.0 ; Medical Practice Assistant abby diastolic CHF (congestive heart failure) I50.32 ; Hospital discharge follow-up Z09 and History of sepsis Z86.19 [facility] [address] [place] [address] 01/02/2024 Mali Karissa Dysuria R30.0 ; Hist ory of pyelonephritis Z87.448 ; Chronic diastolic CHF (congestive heart failure) I50.32 ; Hospital discharge follow-up Z09 and History of sepsis Z86.19 ASSESSMENTS Encounter Date Diagnosis Assessment Notes Treatment Notes Treatment Clinical Notes 01/16/2023 Ingrown toenail of right foot with [...] to re-evaluate. S/s of worsening condition discussed 01/22/2023 Onychomycosis (ICD-10 - B35.1) LFTs have been normal. Sent terbinafine given poor likelihood of success with topical application. Follow-up in a couple months if not better 01/22/2023 Ingrowing nail with infection (ICD-10 - L60.0) Resume Xarelto tomorrow. Instructions given for patient as noted above. Procedure done without complications and minimal blood loss 02/06/2023 Essential hypertension (ICD-10 - I10) well controlled 02/06/2023 Spinal stenosis, other region (ICD-10 - M48.00) tramadol as needed/noted. NETTA on file and updated today. Continues to tolerate this well with good pain relief and remains very functional. Poor candidate for NSAIDS due to CAD, CHF, anticoagulation but cardiology has allowed him to continue meloxicam 02/14/2023 Spinal stenosis, other region (ICD-10 - M48.00) 03/07/2023 Immunization(s) administered (ICD-10 - Z23) 06/19/2023 Essential hypertension (ICD-10 - I10) 06/19/2023 Chronic hypoxemic respiratory failure (ICD-10 - J96.11) Onset of respiratory failure following pulmonary emboli and COVID-19 infection. Continues to require supplemental O2 throughout the day and during sleep. 2 L nasal cannula recommended. We will call and request labs that were done by his drawer in jacquard loom, repeat any additional that are indicated. He will continue follow-up with them as well as with orthopedics. Gallbladder ultrasound pending 09/04/2023 Essential hypertension (ICD-10 - I10) 09/04/2023 Chronic hypoxemic respiratory failure (ICD-10 - J96.11) reviewed chronic disease as noted and no changes recommended. discouraged use of meloxicam, continue PPI. consider gastric emptying and SBFT if HIDA is normal. following with NILDA Garrison in [facility] Continue cardiology FU NETTA on file and UTD, CSA UTD, using tramadol appropriately 10/29/2023 Abdominal pain, generalized (ICD-10 - R10.84) [...] Check labs. 11/26/2023 Coronary artery disease involving ambler coronary artery of ambler heart without angina pectoris (ICD-10 - I25.10) [...] I50.32) Prescibed diuretic PRN for leg edema. 12/27/2023 Arthropathy, lower leg (ICD-10 - M12.9) 12/30/2023 Cholecystitis (ICD-10 - K81.9) 01/02/2024 Dysuria (ICD-10 - R30.0) UA reveals small amount of blood in urine. Due to patient's dysuria, ordered urine culture for further work-up. Will follow up and intervene as needed. 01/02/2024 History of pyelonephritis (ICD-10 - Z87.448) Antibiotics are complete. UA is normal today, will culture given his recent kepl-wv-bxgb urinary tract infections. Encouraged him to stay off of his SGLT2 inhibitor. Blood pressure is marginally low today. Isosorbide, Coreg, Lasix could all be decreased but we will defer that to cardiology since he has an appointment later today. Encouraged him to continue good hydration and rest as needed. Labs drawn today as noted 01/02/2024 Acute abdominal pain (ICD-10 - R10.9) 01/02/2024 Microscopic hematuria (ICD-10 - R31.29) 01/06/2024 Syncope, unspecified syncope type (ICD-10 - R55) 01/02/2024 Chronic diastolic CHF (congestive heart failure) (ICD-10 - I50.32) Prescibed diuretic PRN for leg edema. 12/23/2023 Hospital discharge follow-up (ICD-10 - Z09) 12/03/2023 Coronary artery disease involving ambler coronary artery of ambler heart without angina pectoris (ICD-10 - I25.10) On appropriate therapy, blood pressure good control, make sure lipid is at tight target 11/13/2023 History of coronary artery disease (ICD-10 - Z86.79) 11/26/2023 Essential hypertension (ICD-10 - I10) Blood pressure slightly low, recommended holding Lasix and potassium and will check labs today. I will see him in 1 week to reevaluate further labs. 09/04/2023 Spinal stenosis, other region (ICD-10 - M48.00) 02/06/2023 Chronic diastolic CHF (congestive heart failure) (ICD-10 - I50.32) Jardiance, lasix, weight loss as noted 06/19/2023 Spinal stenosis, other region (ICD-10 - M48.00) 02/06/2023 Coronary artery disease involving ambler coronary artery of ambler heart without angina pectoris (ICD-10 - I25.10) continue statin 06/19/2023 Chronic diastolic CHF (congestive heart failure) (ICD-10 - I50.32) 11/13/2023 Chronic diastolic CHF (congestive heart failure) (ICD-10 - I50.32) 11/26/2023 Hospital discharge follow-up (ICD-10 - Z09) Reviewed discharge summary, H&P and discharge medications personally. Personally reconciled medication. 12/03/2023 B12 deficiency (ICD-10 - E53.8) Check B12 deficiency given his mild myalgia 09/04/2023 Chronic diastolic CHF (congestive heart failure) (ICD-10 - I50.32) 12/23/2023 History of sepsis (ICD-10 - Z86.19) 01/02/2024 Hospital discharge follow-up (ICD-10 - Z09) 12/03/2023 Myalgia (ICD-10 - M79.10) Discussed with patient that it would be better for him to stay off NSAIDs given heart disease and his kidney issues. Recheck kidney function. Recommended continue Voltaren use. As needed Tylenol use. He is also seeing his orthopedist next week, injections may be a good option for him to continue 01/02/2024 History of sepsis (ICD-10 - Z86.19) 11/13/2023 Chronic hypoxemic respiratory failure (ICD-10 - J96.11) 09/04/2023 Pulmonary embolism and infarction (ICD-10 - I26.99) 02/06/2023 Pulmonary embolism and infarction (ICD-10 - I26.99) cardiology directing management as well and they will decide about stopping anticoagulation 06/19/2023 Pulmonary embolism and infarction (ICD-10 - I26.99) 02/06/2023 B12 deficiency (ICD-10 - E53.8) labs done last visit, stable 06/19/2023 Arthropathy, lower leg (ICD-10 - M12.9) 09/04/2023 Arthropathy, lower leg (ICD-10 - M12.9) 11/13/2023 Hx pulmonary embolism (ICD-10 - Z86.711) 12/03/2023 Routine medical exam (ICD-10 - Z00.00) Medicare HRA reviewed. Immunizations will be updated. Up-to-date with colonoscopy. Non-smoker. 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 Excellent functional status, no falls. No concerning alcohol use. 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 (ICD-10 - Z79.01) 02/06/2023 BMI 39.0-39.9,adult (ICD-10 - Z68.39) complicates all aspects of care but improving, continue efforts 01/22/2023 Other PLAN OF TREATMENT Pending Test Test Name Order Date Ultrasound : Right Upper Quadrant 2023 N-PSA 02/14/2007 Glucose (in house) 01/06/2024 EKG : In House 11/17/2015 EKG : In House 09/26/2018 EKG : In House 06/30/2020 C-CBC 11/21/2017 C-CBC 06/09/2020 C-CBC 05/29/2018 C-CBC 11/19/2016 C-CBC 08/19/2017 C-CBC 05/19/2015 C-CMP 05/19/2015 C-CMP 05/17/2016 C-CMP 10/17/2012 C-CMP 02/16/2015 C-CMP 08/19/2017 C-CMP 11/19/2016 C-CMP 05/29/2018 C-CMP 06/09/2020 C-CMP 11/21/2017 C-CMP 09/05/2020 C-CMP 06/30/2020 C-LIPID PANEL 09/05/2020 C-LIPID PANEL 09/26/2018 C-LIPID PANEL 11/21/2017 C-LIPID PANEL 06/09/2020 C-LIPID PANEL 05/29/2018 C-LIPID PANEL 11/19/2016 C-LIPID PANEL 08/19/2017 C-LIPID PANEL 02/16/2015 C-LIPID PANEL 10/17/2012 C-LIPID PANEL 05/17/2016 C-LIPID PANEL 05/19/2015 C-TSH 05/29/2018 C-TSH 05/19/2015 C-FREE T4 05/19/2015 C-PSA 05/17/2016 C-PSA 11/21/2017 C-VITAMIN B12 11/21/2017 C-VITAMIN B12 05/29/2018 C-VITAMIN B12 09/05/2020 C-VITAMIN B12 09/26/2018 C-VITAMIN B12 05/17/2016 C-VITAMIN B12 05/19/2015 C-VITAMIN B12 06/09/2020 C-VITAMIN B12 08/19/2017 C-VITAMIN B12 11/19/2016 C-BNP 06/30/2020 C-VITAMIN D, 25-HYDROXY 05/29/2018 Urine Culture, Routine 06/11/2015 C-DRUG SCREEN 12 PANEL 09/05/2020 M-Complete Blood Count w/o Diff 08/06/19 M-Comprehensive Metabolic Panel 08/06/19 M-Liver Panel 11/14/2023 M-Basic Metabolic Panel 08/06/2022 M-Hemoglobin A1C 08/06/2022 M-Magnesium 08/06/2022 M-Lipid Panel 08/06/2022 M-Vitamin B12 08/06/2022 M-Vitamin B12 06/01/2021 M-Vitamin D 25 Hydroxy 08/06/2022 CBC (INCLUDES DIFF/PLT) (6399) TSH (899) 01/06/2024 VITAMIN D,25-OH,TOTAL,IA (63613) 024 COMP METABOLIC PANEL 01/06/2024 Next Appt Details Provider Name:Mlai aMrti osborne, 01/30/2024 09:15:00 AM, [facility] [address], [address], [place], [address], Provider Name:Steven Keating, 03/03/2024 09:45:00 AM, [address] [facility] [address], [place], [address], Insurance Providers Payer Name Payer Address Payer Phone Subscriber Number Group Number Insured Name Patient Relationship to Insured Coverage Start Date Coverage End Date [employer] [address] [address] [place] [address] [phone] [id number] Nazario Mitchell Self - patient is the [...] Focal inflammation - Repeated August [address] [facility]-1 hyperplastic polyp [facility] 2019, chronic CAD, no additional int ervention needed [place] Palsy DVT and PE during COVID 19 infection Surgical History Surgery Date(Month/Year) back surgery 2013 appendectomy, open 2015 cardiac stents in 1997 colonoscopy 2016 zo cataract 2019 heart cath 09/2018 hernia repair 10/2018 Colonoscopy and EGD AUGUST 2023 gallbladder, drain tube 11/02/2023 Hospitalization History Reason Date(Month/Year) [facility]-kidney infection 12/2023 [facility]-infection in kidneys 12/09 [facility] - Syncope, infection in blood 11/18- [facility] - Syncope 11/17-04/2024 [facility]- abdomen pain, infection 10/28- 24 DVT, PE, COVID 19 12/2021 all above surgeries
[2024-01-06 14:38] VITALS: BP 128/73; PULSE 71; O2SAT 98
[2024-01-06 14:41] VITALS: BP 128/73; PULSE 72; RESP 20; TEMP 36.6; O2SAT 95; BMI 36.8
[2024-01-06 14:42] VITALS: BP 111/68; PULSE 69; O2SAT 97
--- NOTE | 2024-01-06 14:43 | CT_ITS ---
PROCEDURE INFORMATION: Exam: CTA Head With Contrast, Arteriography Exam date and time: 01/06/2024 4:40 PM Age: 68 years old Clinical indication: Syncope and collapse TECHNIQUE: Imaging protocol: Computed tomographic angiography of the head with contrast. Exam focused on the arteries. 3D rendering (Not supervised by radiologist): MIP and/or 3D reconstructed images were created by the technologist. Radiation optimization: All CT scans at this facility use at least one of these dose optimization techniques: automated exposure control; mA and/or kV adjustment per patient size (includes targeted exams where dose is matched to clinical indication); or iterative reconstruction. Contrast material: ISOVUE; Contrast volume: 100 ml; Contrast route: INTRAVENOUS (IV); COMPARISON: CT HEAD/BRAIN WO CON 01/06/2024 4:38 PM FINDINGS: ANTERIOR CIRCULATION: Right internal carotid artery: Calcification involving the right carotid siphon without hemodynamically significant stenosis. Right middle cerebral artery: No occlusion or significant stenosis. No aneurysm. Right anterior cerebral artery: No occlusion or significant stenosis. No aneurysm. Left internal carotid artery: Calcification involving the left carotid siphon without hemodynamically significant stenosis. Left middle cerebral artery: No occlusion or significant stenosis. No aneurysm. Left anterior cerebral artery: No occlusion or significant stenosis. No aneurysm. POSTERIOR CIRCULATION: Right vertebral artery: Right vertebral artery is dominant. Left vertebral artery: No occlusion or significant stenosis. No aneurysm. Basilar artery: No occlusion or significant stenosis. No aneurysm. Right posterior cerebral artery: No occlusion or significant stenosis. No aneurysm. Left posterior cerebral artery: No occlusion or significant stenosis. No aneurysm. IMPRESSION: No hemodynamically significant stenosis or large vessel occlusion.
--- NOTE | 2024-01-06 14:43 | CT_ITS ---
PROCEDURE INFORMATION: Exam: CT Head Without Contrast Exam date and time: 01/06/2024 4:38 PM Age: 68 years old Clinical indication: Syncope and collapse TECHNIQUE: Imaging protocol: Computed tomography of the head without contrast. Radiation optimization: All CT scans at this facility use at least one of these dose optimization techniques: automated exposure control; mA and/or kV adjustment per patient size (includes targeted exams where dose is matched to clinical indication); or iterative reconstruction. COMPARISON: CT HEAD/BRAIN WO CON 01/06/2024 4:38 PM FINDINGS: Brain: Mild volume loss. No acute intracranial hemorrhage, midline shift or intracranial mass effect. Cerebral ventricles: Ventriculomegaly is commensurate for degree of volume loss. Paranasal sinuses: Mild paranasal sinus disease. Mastoid air cells: Visualized mastoid air cells are well aerated. Bones: Unremarkable. No acute fracture. Soft tissues: Unremarkable. IMPRESSION: No acute intracranial abnormality.
--- NOTE | 2024-01-06 14:43 | CT_ITS ---
PROCEDURE INFORMATION: Exam: CTA Neck With Contrast Exam date and time: 01/06/2024 4:40 PM Age: 68 years old Clinical indication: Syncope and collapse TECHNIQUE: Imaging protocol: Computed tomographic angiography of the neck with contrast. Exam focused on the cervical segments of the vasculature. 3D rendering (Not supervised by radiologist): MIP and/or 3D reconstructed images were created by the technologist. Radiation optimization: All CT scans at this facility use at least one of these dose optimization techniques: automated exposure control; mA and/or kV adjustment per patient size (includes targeted exams where dose is matched to clinical indication); or iterative reconstruction. Contrast material: ISOVUE; Contrast volume: 100 ml; Contrast route: INTRAVENOUS (IV); COMPARISON: CT ANGIO HEAD 01/06/2024 4:40 PM FINDINGS: Right common carotid artery: Calcification at the right common carotid bifurcation. Mild stenosis measures less than 50%. Right internal carotid artery: Calcification of the proximal right ICA. Mild stenosis measures less than 50%. Right external carotid artery: Mild stenosis of the proximal right external carotid artery. Left common carotid artery: Calcification at the left common carotid bifurcation without significant stenosis. Left internal carotid artery: No stenosis of the extracranial segment. No dissection or occlusion. Left external carotid artery: No occlusion or stenosis of the origin. Right vertebral artery: Right vertebral artery is dominant. Left vertebral artery: No stenosis. No dissection or occlusion. Aorta: Aortic calcification. Soft tissues: Normal. No significant soft tissue swelling. Bones/joints: Degenerative change involving the spine. IMPRESSION: No hemodynamically significant stenosis. REFERENCES: NASCET CRITERIA. The degree of stenosis in the cervical segment of the internal carotid artery is based on NASCET criteria. Normal is no stenosis. Mild is less than 50% stenosis. Moderate is 50-69% stenosis. Severe is 70% to 99% stenosis. Total occlusion is no detectable patent lumen.
--- NOTE | 2024-01-06 15:05 | ECG_ITS ---
APPROVED REPORT Exam: Resting ECG HR:70 bpm ECG Measurements Heart Rate 70 AXES PA 181 P 55 QRSd 88 QRS -21 QT 388 T 36 QTc 409 Conclusion SINUS RHYTHM BORDERLINE LEFT AXIS DEVIATION [QRS AXIS < -20] BORDERLINE ECG Electronically signed by : JOVAN CANTU, 01/06/2024 21:01:56
--- NOTE | 2024-01-06 15:20 | CT_ITS ---
PROCEDURE INFORMATION: Exam: CTA Chest With Contrast Exam date and time: 01/06/2024 5:02 PM Age: 68 years old Clinical indication: Other: Syncope TECHNIQUE: Imaging protocol: Computed tomographic angiography of the chest with contrast. Exam focused on the arteries. 3D rendering (Not supervised by radiologist): MIP and/or 3D reconstructed images were created by the technologist. Radiation optimization: All CT scans at this facility use at least one of these dose optimization techniques: automated exposure control; mA and/or kV adjustment per patient size (includes targeted exams where dose is matched to clinical indication); or iterative reconstruction. Contrast material: ISOVUE; Contrast volume: 70 ml; Contrast route: INTRAVENOUS (IV); COMPARISON: CR XR CHEST 2V 12/25/2021 7:06 PM FINDINGS: Pulmonary arteries: Negative for acute pulmonary embolism. Aorta: Unremarkable. No aortic aneurysm. No aortic dissection. Lungs: Multiple subcentimeter pulmonary nodules bilaterally, may be noncalcified granulomas. Largest on the left, in the left upper lobe subpleural in location measures 7 mm (series 7, image 67). Largest on the right is 6 mm in the upper lobe (series 7, image 51). No focal consolidation. Pleural spaces: Unremarkable. No pneumothorax. No pleural effusion. Heart: Unremarkable. No cardiomegaly. No pericardial effusion. Lymph nodes: Unremarkable. No enlarged lymph nodes. Bones/joints: Unremarkable. No acute fracture. Soft tissues: Unremarkable. Other findings: Previous granulomatous exposure. IMPRESSION: 1. Negative for acute pulmonary embolism. 2. Multiple subcentimeter pulmonary nodules, may be noncalcified granulomas. Follow-up as indicated. FLEISCHNER CRITERIA FOR MANAGEMENT OF PULMONARY NODULES Low Risk Patients: <6mm, no follow-up 6-8mm, 6-12 month follow-up >8mm, CT @ 3, months, PET/CT or biopsy High Risk Patients: <6mm, follow-up 12 months 6-8mm, 6-12 month then 18-24 month follow-up >8mm, same as for low risk References: Pina Fischer, et al. Guidelines for Management of Incidental Pulmonary Nodules Detected on CT Images: From the Fleischner Society 2017. Radiology. 2017;284(1):228-243.
[2024-01-06] MEDS: LACTATED RINGERS 1000ML 1,000 ML 999 ML IV (15:58)
[2024-01-06 16:01] LABS: Basophils # 0.1 K/mm3 (0-0.2); Basophils % 0.9 % (0.1-2.0); Eosinophils # 0.2 K/mm3 (0.0-0.4); Eosinophils % 2.8 % (0.1-12.0); Hematocrit 43.6 % (42.0-52.0); Hemoglobin 14.4 g/dL (14.1-18.0); Lymphocytes # 1.4 K/mm3 (0.7-4.5); Lymphocytes % 19.1 % (10-50); Mean Corpuscular Hemoglobin 31.9 pg (27.0-31.2); Mean Corpuscular Volume 96.6 fl (80-94); Mean Platelet Volume 7.9 fl (7.4-10.4); Monocytes # 0.5 K/mm3 (0.1-1.0); Monocytes % 6.7 % (1.7-9.3); Neutrophils # 5.3 K/mm3 (1.8-7.8); Neutrophils % 70.5 % (37.0-80.0); Platelet Count 150 K/mm3 (142-424); Red Blood Count 4.52 M/mm3 (4.60-6.20); Red Cell Distribution Width 14.9 % (11.5-17.5); White Blood Count 7.5 K/mm3 (4.8-10.8)
[2024-01-06 16:02] LABS: INR 1.04 (0.9-1.1); Prothrombin Time 11.6 seconds (10.1-12.5)
[2024-01-06 16:05] LABS: Albumin Level 3.5 g/dl (3.5-5.0); Chloride 105 mmol/L (98-107); Potassium 4.3 mmoL/L (3.5-5.1); Sodium 138 mmol/L (136-145)
[2024-01-06 16:08] LABS: Alanine Aminotransferase 18 U/L (12-78); Albumin/Globulin Ratio 1.4 (1.1-1.8); Alkaline Phosphatase 59 U/L (38-126); Anion Gap 8.3 mEq/L (5-15); Aspartate Amino Transferase 27 U/L (17-59); Bilirubin,Total 0.6 mg/dl (0.2-1.3); Blood Urea Nitrogen 22 mg/dl (9-20); Calcium 8.7 mg/dl (8.4-10.2); Carbon Dioxide 29 mmol/L (22.0-30.0); Creatinine Clearance Estimated 108 mL/min (50-200); Estimated Glomerular Filt Rate 96 ml/min (>60); GFR (African American) 116 ML/MIN (>60); Globulin 2.5 g/dL (1.3-3.2); Glucose 93 mg/dl (74-100); Magnesium 1.7 mg/dl (1.6-2.3)
[2024-01-06 16:22] LABS: Troponin I < 0.01 ng/ml (0.00-0.034)
[2024-01-06 16:40] LABS: Thyroid Stimulating Hormone 0.35 uIU/mL (0.465-4.68)
--- NOTE | 2024-01-06 17:02 | PC.NURSE ---
pt is at ct
[2024-01-06 17:24] LABS: Free T4 (Free Thyroxine) 1.38 ng/dl (0.78-2.19); T4 (Thyroxine) 10.2 ug/dl (5.53-11.0)
[2024-01-06] MEDS: 0.9 % SODIUM CHLORIDE 50 ML VIAL IV (18:10)
[2024-01-06] MEDS: SODIUM CHLORIDE 0.9% 10ML SYR (RAD ONLY) 10 ML IV (18:10)
[2024-01-06] MEDS: IOPAMIDOL-370 (76%);100ML BOTTLE 170 ML IV (18:11)
[2024-01-06 18:20] VITALS: BP 142/80; PULSE 77; RESP 12; TEMP 36.7; O2SAT 100
[2024-01-06 18:24] LABS: Troponin I < 0.01 ng/ml (0.00-0.034)
[2024-01-08 08:48] LABS: Triiodothyronine (T3) Free 3.1 pg/mL (2.0-4.4); Triiodothyronine (T3) Total 117 ng/dL (71-180)
== END 2024-01-06 18:20 | disposition home or self-care (01) ==
PROVIDERS: Physician Assistant; Emergency Provider Emergency Medicine; PCP Nurse Practitioner Family
DX: R55 Syncope and collapse (principal); R51.9 Headache, unspecified; I11.9 Hypertensive heart disease without heart failure; I25.119 Atherosclerotic heart disease of native coronary artery with unspecified angina pectoris; E78.5 Hyperlipidemia, unspecified; Z95.5 Presence of coronary angioplasty implant and graft; Z99.81 Dependence on supplemental oxygen; R94.6 Abnormal results of thyroid function studies
CPT/HCPCS: 70450; 70496; 70498; 71275; 80050; 80053; 83735; 84436; 84439; 84443; 84480; 84481; 84484; 85025; 85610; 93005; 96360; 99285; J7120; Q9967

== ENCOUNTER 2024-01-07 09:42 | Outpatient (CLI) | payer MEDICARE, SELFPAY ==
--- OUTSIDE RECORDS SUMMARY | 2024-01-07 09:49 | XMS_ITS | Clinical Summary ---
Author Organization [facility] Address [address] [place] [address] Phone Care Team Providers Care Enterprise Resource Planning Consultant Name Role Phone Thiago Kidd MD [phone] Conditions or Problems No information available. Medications No information available. Medications Administered No information available. Allergies, Adverse Reactions, Alerts No information available. Results No information available. Plan of Care No information available. Procedures No information available. Vital Signs No information available. Immunizations No information available. Advance Directives No information available.
--- OUTSIDE RECORDS SUMMARY | 2024-01-07 09:49 | XMS_ITS ---
Author Organization [facility] Address [address] [place] [address] [place] [address] Care Team Providers Care Day Camp Unit Leader Name Role Phone Steven Keating Primary Care Provider Mali Hancock Unavailable [phone] Jasmyne Turner Unavailable [phone] ALLERGIES No Known Allergies RESULTS Component Value Reference Range Notes Glucose (in house) Reviewed date:01/06/2024 04:58:48 PM Interpretation: Performing Lab: Notes/Report: glucose 160 REASON FOR VISIT syncope MEDICATIONS Medication SIG (Take, Route, Frequency, Duration) Notes Start Date End Date Status levoFLOXacin 750 mg 1 tab(s) orally ever y 24 hours for 10 days 12/31/2023 Active nystatin topical 825157 units/g 1 jeffery applied topically 3 times [...] 01/06/2024 Encounters Encounter Location Date Provider Diagnosis [address] [address] 01/06/2024 Jasmyne Yue Syncope, unspecified syncope type R55 ASSESSMENTS Encounter Date Diagnosis Assessment Notes Treatment Notes Treatment Clinical Notes 01/06/2024 Syncope, unspecified syncope type (ICD-10 - R55) Sent to ED for evaluation PLAN OF TREATMENT Treatment Notes Assessment Notes Syncope, unspecified syncope type Sent t o ED for evaluation Pending Test Test Name Order Date CBC (INCLUDES DIFF/PLT) (6399) TSH (899) 01/06/2024 COMP METABOLIC PANEL 01/06/2024 Next Appt Details Provider Name:Mali Correa india, 01/30/2024 09:15:00 AM, [address], [address], [place], [address], Provider Name:Steven Keating, 03/03/2024 09:45:00 AM, [address] [facility], [facility] [address], [place], [address], Progress Notes * Nazario KWON RDOB: (68 yo M)Acc No.[id number]:01/06/2024 Progress Notes Patient:??Nazario KWON Provider:??Jasmyne Turner APRN :1955?Age:68 Y?Sex:Ma le Date:01/06/2024 Address:[address] [id number] Pcp:Steven Keating Subjective: * Chief Complaints: * ?1. Syncope. * Medical History:??Hypertensi on, Hypercholestrolemia, degenerative disc disease s/p surgery. On tramadol, coronary artery disease-stents. Evaluated by Dr Redman September 2016, negative GXT with EF 48%, B12 def, BPH, Colonoscopy 2016, Dr Sullivan, Tubular Adenoma and Focal inflammation - Repeated August [address] [facility]-1 hyperplastic polyp, [facility] 2019, chronic CAD, no additional intervention needed, [place] Palsy, DVT and PE during COVID 19 infection. * Medications:??Taking Urinozi nc Prostate Health Complex Classic Therapeutic Multiple Vitamins [...] every 24 hours , Taking nystatin topical 137674 units/g powder 1 jeffery applied topically 3 times a day , Medication List reviewed and reconciled with the patient * Allergies:??N.K.D.A. Objective: * Vitals:??Nurse: meg, Pain: 0, Temp: 97.9, Pulse O2: 99%RA 2L, RR: 20, HR: 72, BP: 102/62, Ht: 5 ft 9 in, Wt: 242, BMI:35.73. Assessment: * Assessment: 1.??Syncope, unspecified syn cope type - R55?? Plan: * Treatment: ? Value Reference Range ?glucose 160 * Roel Kwon [place] 01/06/2024 0 4:29:55 PM EDT > Notes: Sent to ED for evaluation? * * Sign off status: Completed true * Provider:??Jasmyne Turner APRN Date :??01/06/2024
--- OUTSIDE RECORDS SUMMARY | 2024-01-07 09:49 | XMS_ITS ---
Author Organization [facility] Address [address] [place] [address] Care Team Providers Care Surgical Consultant Name Role Phone Steven Keating Primary Care Provider Karissa Mali Martinez [phone] REASON FOR VISIT order Encounters Encounter Location Date Provider Diagnosis [address] [address] 01/07/2024 Mali Karissa Syncope, unspecified syncope type R55 ASSESSMENTS Encounter Date Diagnosis Assessment Notes Treatment Notes Treatment Clinical Notes 01/07/2024 Syncope, unspecified syncope type (ICD-10 - R55) PLAN OF TREATMENT Pending Test Test Name Order Date Holter Monitor : Event Recorder 01/07/20 24 Holter Monitor, 48 hour 01/07/2024 Next Appt Details Provider Name:Mali osborne, 01/30/2024 09:15:00 AM, [address], [address], [place], [address], Provider Name:Steven Keating, 03/03/2024 09:45:00 AM, [address], [address], Progress Notes * Nazario KWON RDOB: (68 yo M)Acc No.[id number]:01/07/2024 Patient:??Nazario KWON :1955?Age:68 Y?Sex:Gavin carnes [address] [place] [address] Subjective: * Chief Complaints: * ?Order * Medical History:?? * Surgical History:?? * Hospitalization/Major Diagno stic Procedure:?? * Medications:?? Objective: Assessment: * Assessment: 1.??Syncope, unspecified syn cope type - R55 (Primary)?? Plan: * Treatment: * ?Imaging: Holter Monitor, 48 hour* * Procedure Codes:?? * true * Date:??
--- OUTSIDE RECORDS SUMMARY | 2024-01-07 09:49 | XMS_ITS ---
Author Organization [facility] Address [address] [facility] [address] [place], [place] [address] Care Team Providers Care Public Health Administrator Name Role Phone Steven Keating Primary Care Provider [phone] Mali Hancock [phone] MEDICATIONS Medication SIG (Take, Route, Frequency, Duration) Notes Start Date End Date Status nystatin topical 687979 units/g 1 jeffery applied topically 3 times a day for 7 days 01/02/2024 Active Encounters Encounter Location Date Provider Diagnosis [facility] [address] [facility] [address] [place], [place] [address] 01/02/2024 Mali Hancock PLAN OF TREATMENT Medication Medication Name Sig Start Date Stop Date Notes nystatin topical 191262 units/g 1 jeffery applied topically 3 times a day for 7 days 01/02/2024 Next Appt Details Provider Name:Mali osborne, 01/30/2024 09:15:00 AM, [address] [facility], [address], [place], [place], [address], Provider Name:Steven Keating, 03/03/2024 09:45:00 AM, [address] [place] [address], [address], Progress Notes * Nazario KWON RDOB: (68 yo M)Acc No.[id number]:01/02/2024 Patient:??Nazario KWON :1955?Age:68 Y?Sex:Gavin carnes Address:[address] [place] [address] * Refills?? Start nystatin topical powder, 765459 units/g, applied topically, 1, 1 jeffery, 3 times a day, 7 days, Refills=2 * true * Date:??
== END 2024-01-07 23:59 | disposition home or self-care (01) ==
LOC: RT 09:48
PROVIDERS: PCP Internal Medicine Adolescent Medicine; Visit Provider Nurse Practitioner Family
DX: R55 Syncope and collapse (principal)
CPT/HCPCS: 93225; 93226

== ENCOUNTER 2024-02-28 05:33 | Emergency (ER) | payer MEDICARE, SELFPAY ==
[2024-02-28] VITALS (12 sets, daily range): BP systolic 105–138; BP diastolic 64–83; PULSE 72–114; RESP 20; TEMP 37.2–37.5; O2SAT 91–97; BMI 36.0
--- NOTE | 2024-02-28 05:42 | HMH.EDGENADL ---
Discharge Plan Disposition Patient Disposition: Home, Self-Care Chief Complaint: Urogenital-Male Prescriptions Prescriptions: No Action nitrofurantoin macrocrystal [Macrodantin] 100 mg capsule 100 mg PO HS Qty: 30 0RF Rx Instructions: must administer with a meal/food oxybutynin chloride 10 mg tablet extended release 24hr 10 mg PO DAILY Qty: 90 3RF tamsulosin [Flomax] 0.4 mg capsule 0.4 mg PO DAILY Qty: 30 3RF carvedilol 6.25 mg Tablet 6.25 mg PO BID Rx Instructions: must administer with a meal/food Metamucil 3.4 gram/5.4 gram Powder 1 tbsp PO DAILY Rx Instructions: mix into at least 8 oz of water or juice before administering potassium chloride 10 mEq Capsule, Extended Release 10 meq PO DAILY cyanocobalamin (vitamin B-12) [Dodex] 1,000 mcg/mL Solution 1,000 mcg IM MONTHLY furosemide 40 mg tablet 40 mg PO DAILY omeprazole 20 mg capsule,delayed release(DR/EC) 40 mg PO DAILY Xarelto 20 mg Tablet 20 mg PO QPMWITHMEAL atorvastatin 40 MG tablet 40 mg PO DAILY tramadol 50 MG tablet 50 mg PO TIDP PRN (Reason: Moderate Pain) isosorbide mononitrate 60 MG tablet extended release 24 hr 60 mg PO DAILY ascorbic acid (vitamin C) 1,000 MG tablet 1,000 mg PO DAILY Referrals Follow up/Referrals: Mali Hancock APRN [Primary Care Provider] - See instructions Activity Restrictions/Add. Instructions Additional Instructions/Restrictions: At this time it was felt you are safe to be discharged home. If new or worsening symptoms please do not hesitate to return the emergency department. Please continue take your antibiotics as prescribed and follow-up with your surgeon for your residual gallbladder evaluation. Please follow-up with Dr. Lyons late next week to ensure resolution of urinary tract infection. Clinical Impressions Clinical Impression: Calcification of gallbladder, Acute UTI Instructions Patient Instructions: DI for Urinary Tract Infection (UTI) Print Language Print Language: Greenlandic Discharge ED Provider: Indra Chiu General Adult HPI <Indra Chiu MD - Last Filed: 02/28/24 06:52> General Chief complaint: Urogenital-Male Stated complaint: UTI, shaking, nausea Time Seen by Provider: 02/28/24 05:35 History of Present Illness HPI narrative: 68-year-old male with history of chronic hypoxic respiratory failure secondary to COVID, hypertension hyperlipidemia BPH and history of UTI presents for bilateral flank pain, feeling shaky and cold. He reports that he was seen in clinic yesterday and they diagnosed him with UTI. He was given 500 mg of Rocephin at that time and placed on cefdinir. He reports symptoms have worsened since that time. Denies significant nausea or vomiting. Denies any pain with defecation. Related Data Home Medications ?Medication ?Instructions ?Recorded ?Confirmed atorvastatin 40 mg tablet 40 mg PO DAILY 07/18/18 01/20/24 isosorbide mononitrate 60 mg 60 mg PO DAILY 07/18/18 01/20/24 tablet,extended release 24 hr tramadol 50 mg tablet 50 mg PO TIDP PRN Moderate Pain 07/18/18 01/20/24 ascorbic acid (vitamin C) 1,000 mg 1,000 mg PO DAILY 12/25/21 01/20/24 tablet carvedilol 6.25 mg tablet 6.25 mg PO BID 12/27/23 01/20/24 cyanocobalamin (vitamin B-12) 1,000 mcg IM MONTHLY 12/27/23 01/20/24 1,000 mcg/mL injection solution (Dodex) furosemide 40 mg tablet 40 mg PO DAILY 12/27/23 01/20/24 omeprazole 20 mg capsule,delayed 40 mg PO DAILY 12/27/23 01/20/24 release potassium chloride 10 mEq 10 meq PO DAILY 12/27/23 01/20/24 capsule,extended release psyllium husk 3.4 gram/5.4 gram 1 tbsp PO DAILY 12/27/23 01/20/24 oral powder (Metamucil) rivaroxaban 20 mg tablet (Xarelto) 20 mg PO QPMWITHMEAL 12/27/23 01/20/24 Previous Rx's ?Medication ?Instructions ?Recorded nitrofurantoin macrocrystal 100 mg 100 mg PO HS #30 caps 01/20/24 capsule (Macrodantin) oxybutynin chloride 10 mg 10 mg PO DAILY #90 tabs 01/20/24 tablet,extended release 24 hr tamsulosin 0.4 mg capsule (Flomax) 0.4 mg PO DAILY #30 caps 01/20/24 Allergies Allergy/AdvReac Type Severity Reaction Status Date / Time No Known Drug Allergies Allergy Unknown Verified 01/20/24 12:58 [facility] <Indra Chiu MD - Last Filed: 02/28/24 06:52> [facility] Disclaimer: The information contained in this section may have been updated after the patient was seen, as this information can be updated by other users. Medical History Sepsis Obesity NSTEMI (non-ST elevated myocardial infarction) CAD (coronary artery disease) HTN (hypertension) HLD (hyperlipidemia) BPH (benign prostatic hyperplasia) COVID-19 Non-STEMI (non-ST elevated myocardial infarction) Unstable angina pectoris Family History Other Cancer Social History Smoking Status: Never smoker second hand exposure: No alcohol intake: never substance use type: denies use current occupational status: retired and disabled Travel in the last 8 weeks: None household members: spouse housing: house current occupational exposures/hazards: No caffeine: Yes <Indra Chiu MD - Last Filed: 02/28/24 06:52> ROS Obtained: Yes All systems reviewed & no additional complaints except as documented Physical Exam <Indra Chiu MD - Last Filed: 02/28/24 06:52> General General appearance: alert and in no apparent distress Head Head exam: atraumatic and normocephalic Eye Eye exam: Present normal appearance, PERRL and EOMI ENT ENT exam: Present normal oropharynx and normal external ear exam Neck Neck exam: Present normal inspection and full ROM Chest Chest inspection: Present normal inspection and symmetric chest wall rise; Absent tenderness Respiratory Respiratory exam: Present normal lung sounds bilaterally; Absent respiratory distress Cardiovascular Cardiovascular exam: Present regular rate and normal rhythm Abdominal Exam Abdominal exam: Present soft; Absent distention, tenderness or guarding Extremities Exam Extremities exam: Present normal inspection; Absent edema or joint swelling Back Exam Back exam: Present normal inspection; Absent tenderness Neurological Exam Neurological exam: Present alert and oriented X3; Absent motor sensory deficit Psychiatric Psychiatric exam: Present normal affect and normal mood Skin Skin exam: Present warm, dry and normal color Lymphatic Lymphatic Findings: no adenopathy Medical Decision Making <Indra Chiu MD - Last Filed: 02/28/24 06:52> Medical Records Medical records reviewed: Yes I reviewed the patient's medical records. Screening: Per USPSTF and CDC recommendations, given the prevalence of disease in our region, it is our hospital?s policy to screen for HIV and viral Hepatitis for all patients aged 18 and over and those with ongoing risk factors. [place] Inquiry Pt receiving controlled substance: No [place] was queried for this patient: No Vital Signs: 02/28/24 05:34 02/28/24 07:00 02/28/24 07:11 Temperature 99.5 F Temperature Source Oral Pulse Rate 98 H 100 H Pulse Rate [Right] 114 H Respiratory Rate 20 Blood Pressure 121/82 116/73 Blood Pressure [Right Arm] 138/75 Blood Pressure Mean [Right Arm] 96 02 Sat by Pulse Oximetry 92 L 92 L 94 L Oxygen Delivery Method Nasal Cannula Nasal Cannula Nasal Cannula 02/28/24 07:20 02/28/24 07:30 02/28/24 07:40 Temperature Temperature Source Pulse Rate 73 78 87 Pulse Rate [Right] Respiratory Rate Blood Pressure 105/73 L 117/64 115/78 Blood Pressure [Right Arm] Blood Pressure Mean [Right Arm] 02 Sat by Pulse Oximetry 95 91 L 93 L Oxygen Delivery Method Nasal Cannula Nasal Cannula Nasal Cannula 02/28/24 07:50 02/28/24 08:00 Temperature Temperature Source Pulse Rate 79 84 Pulse Rate [Right] Respiratory Rate Blood Pressure 107/77 L 107/68 L Blood Pressure [Right Arm] Blood Pressure Mean [Right Arm] 02 Sat by Pulse Oximetry 96 92 L Oxygen Delivery Method Nasal Cannula Nasal Cannula Lab Data Lab results reviewed: Yes I reviewed the patient's lab results. Lab Results 02/28/24 05:45: WBC 6.1, RBC 4.58 L, Hgb 14.7, Hct 44.8, MCV 97.8 H, MCH 32.1 H, MCHC 32.9, RDW 14.7, Plt Count 116 L, MPV 6.5 L, Neut % (Auto) 89.3 H, Lymph % (Auto) 7.4 L, [place] % (Auto) 2.5, Eos % (Auto) 0.6, Baso % (Auto) 0.2, Neut # (Auto) 5.4, Lymph # (Auto) 0.5 L, [place] # (Auto) 0.2, Eos # (Auto) 0.0, Baso # (Auto) 0.0, Total Counted 100, Neutrophils % (Manual) 93 H, Lymphocytes % (Manual) 7 L, Platelet Estimate Slight decrease, RBC Morphology Normal, Sodium 131 L, Potassium 3.9, Chloride 99, Carbon Dioxide 27, Anion Gap 8.9, BUN 11, Creatinine 1.00, Estimated Creat Clear 106, Estimated GFR 74, Est GFR ( Amer) 90, Glucose 118 H, Calcium 8.9, Total Bilirubin 1.5 H, AST 23, ALT 23, Alkaline Phosphatase 70, Total Protein 6.8, Albumin 3.6, Globulin 3.2, Albumin/Globulin Ratio 1.1 02/28/24 06:48: Urine Color Yellow, Urine Appearance Sl cloudy, Urine pH 8.0, Ur Specific [place] 1.015, Urine Protein 1+ A, Urine Glucose (UA) Negative, Urine Ketones Negative, Urine Blood 3+ A, Urine Nitrate Negative, Urine Bilirubin Negative, Urine Urobilinogen 0.2, Ur Leukocyte Esterase 2+ A, Urine RBC 20-50, Urine WBC 10-20, Ur Squamous Epith Cells 5-10, Urine Bacteria None 02/28/24 05:45 02/28/24 05:45 Orders (Tests/Meds): ED MEDICATIONS Generic Name Dose Route Start Last Admin Trade Name Freq PRN Reason Stop Dose Admin Sodium Chloride 10 ml 02/28/24 06:37 02/28/24 06:38 Sodium Chloride 0.9% 10ml Syr (Rad Only) IV 03/29/24 06:36 10 ml NEEDED PRN Administration Maintain IV Site Discontinued Medications Generic Name Dose Route Start Last Admin Trade Name Freq PRN Reason Stop Dose Admin Acetaminophen 1,000 mg 02/28/24 05:53 02/28/24 05:58 Acetaminophen 500mg Tab PO 02/28/24 05:54 1,000 mg ONCE ONE Administration Iopamidol 75 ml 02/28/24 06:37 02/28/24 06:38 Iopamidol-370 (76%);100ml Bottle IV 02/28/24 06:38 75 ml ONCE ONE Administration Ketorolac Tromethamine 30 mg 02/28/24 05:53 02/28/24 05:59 Ketorolac 30mg/Ml Vial IV 02/28/24 05:54 30 mg ONCE ONE Administration Ondansetron HCl 4 mg 02/28/24 05:53 02/28/24 05:59 Ondansetron 4mg/2ml Vial IV 02/28/24 05:54 4 mg ONCE ONE Administration ORDERS Category Date Time Status CT abdomen pelvis w con Stat Cat Scan 02/28/24 05:55 Completed CBC w/Auto Diff [Complete Blood Count Auto Diff] Stat Lab 02/28/24 05:45 Completed CMP [Comprehensive Metabolic Panel] Stat Lab 02/28/24 05:45 Completed UA [Urinalysis and Microscopic] Stat Lab 02/28/24 06:48 Completed Blood Culture Stat Micro 02/28/24 05:45 Received Urine Culture Stat Micro 02/28/24 06:48 Received Medical Decision Narrative: 68-year-old male with history of prior UTIs and BPH, presents 1 day after being diagnosed with UTI in clinic, has persistent chills and flank pain. History was obtained via interactive discussion with patient. On arrival, patient is [afebrile, hemodynamically stable, alert, oriented x4, GCS 15], moving all extremities spontaneously. Full physical exam performed and significant for no significant physical exam abnormalities, satting appropriately on home O2. Differential includes but is not limited to UTI, pyelonephritis, kidney stone, aortic pathology. Patient was given Tylenol Toradol Zofran for symptomatic management and correction of underlying abnormalities. Workup initiated including CBC CMP UA blood cultures CT abdomen pelvis with IV contrast. On re-evaluation, patient [remains afebrile, HD stable.] Laboratory workup independently interpreted by me and significant for no significant leukocytosis, mild hyponatremia, mildly elevated bilirubin. Patient handed off pending urine and CT results. <Wade Frederick MD - Last Filed: 02/28/24 08:30> Vital Signs: 02/28/24 05:34 02/28/24 07:00 02/28/24 07:11 Temperature 99.5 F Temperature Source Oral Pulse Rate 98 H 100 H Pulse Rate [Right] 114 H Respiratory Rate 20 Blood Pressure 121/82 116/73 Blood Pressure [Right Arm] 138/75 Blood Pressure Mean [Right Arm] 96 02 Sat by Pulse Oximetry 92 L 92 L 94 L Oxygen Delivery Method Nasal Cannula Nasal Cannula Nasal Cannula 02/28/24 07:20 02/28/24 07:30 02/28/24 07:40 Temperature Temperature Source Pulse Rate 73 78 87 Pulse Rate [Right] Respiratory Rate Blood Pressure 105/73 L 117/64 115/78 Blood Pressure [Right Arm] Blood Pressure Mean [Right Arm] 02 Sat by Pulse Oximetry 95 91 L 93 L Oxygen Delivery Method Nasal Cannula Nasal Cannula Nasal Cannula 02/28/24 07:50 02/28/24 08:00 Temperature Temperature Source Pulse Rate 79 84 Pulse Rate [Right] Respiratory Rate Blood Pressure 107/77 L 107/68 L Blood Pressure [Right Arm] Blood Pressure Mean [Right Arm] 02 Sat by Pulse Oximetry 96 92 L Oxygen Delivery Method Nasal Cannula Nasal Cannula Lab Data Lab Results 02/28/24 05:45: WBC 6.1, RBC 4.58 L, Hgb 14.7, Hct 44.8, MCV 97.8 H, MCH 32.1 H, MCHC 32.9, RDW 14.7, Plt Count 116 L, MPV 6.5 L, Neut % (Auto) 89.3 H, Lymph % (Auto) 7.4 L, [place] % (Auto) 2.5, Eos % (Auto) 0.6, Baso % (Auto) 0.2, Neut # (Auto) 5.4, Lymph # (Auto) 0.5 L, [place] # (Auto) 0.2, Eos # (Auto) 0.0, Baso # (Auto) 0.0, Total Counted 100, Neutrophils % (Manual) 93 H, Lymphocytes % (Manual) 7 L, Platelet Estimate Slight decrease, RBC Morphology Normal, Sodium 131 L, Potassium 3.9, Chloride 99, Carbon Dioxide 27, Anion Gap 8.9, BUN 11, Creatinine 1.00, Estimated Creat Clear 106, Estimated GFR 74, Est GFR ( Amer) 90, Glucose 118 H, Calcium 8.9, Total Bilirubin 1.5 H, AST 23, ALT 23, Alkaline Phosphatase 70, Total Protein 6.8, Albumin 3.6, Globulin 3.2, Albumin/Globulin Ratio 1.1 02/28/24 06:48: Urine Color Yellow, Urine Appearance Sl cloudy, Urine pH 8.0, Ur Specific [place] 1.015, Urine Protein 1+ A, Urine Glucose (UA) Negative, Urine Ketones Negative, Urine Blood 3+ A, Urine Nitrate Negative, Urine Bilirubin Negative, Urine Urobilinogen 0.2, Ur Leukocyte Esterase 2+ A, Urine RBC 20-50, Urine WBC 10-20, Ur Squamous Epith Cells 5-10, Urine Bacteria None Orders (Tests/Meds): ED MEDICATIONS Generic Name Dose Route Start Last Admin Trade Name Tawanda PRN Reason Stop Dose Admin Sodium Chloride 10 ml 02/28/24 06:37 02/28/24 06:38 Sodium Chloride 0.9% 10ml Syr (Rad Only) IV 03/29/24 06:36 10 ml NEEDED PRN Administration Maintain IV Site Discontinued Medications Generic Name Dose Route Start Last Admin Trade Name Freq PRN Reason Stop Dose Admin Acetaminophen 1,000 mg 02/28/24 05:53 02/28/24 05:58 Acetaminophen 500mg Tab PO 02/28/24 05:54 1,000 mg ONCE ONE Administration Iopamidol 75 ml 02/28/24 06:37 02/28/24 06:38 Iopamidol-370 (76%);100ml Bottle IV 02/28/24 06:38 75 ml ONCE ONE Administration Ketorolac Tromethamine 30 mg 02/28/24 05:53 02/28/24 05:59 Ketorolac 30mg/Ml Vial IV 02/28/24 05:54 30 mg ONCE ONE Administration Ondansetron HCl 4 mg 02/28/24 05:53 02/28/24 05:59 Ondansetron 4mg/2ml Vial IV 02/28/24 05:54 4 mg ONCE ONE Administration ORDERS Category Date Time Status CT abdomen pelvis w con Stat Cat Scan 02/28/24 05:55 Completed CBC w/Auto Diff [Complete Blood Count Auto Diff] Stat Lab 02/28/24 05:45 Completed CMP [Comprehensive Metabolic Panel] Stat Lab 02/28/24 05:45 Completed UA [Urinalysis and Microscopic] Stat Lab 02/28/24 06:48 Completed Blood Culture Stat Micro 02/28/24 05:45 Received Urine Culture Stat Micro 02/28/24 06:48 Received Medical Decision Narrative: 68-year-old male with history of prior UTIs and BPH, presents 1 day after being diagnosed with UTI in clinic, has persistent chills and flank pain. History was obtained via interactive discussion with patient. On arrival, patient is [afebrile, hemodynamically stable, alert, oriented x4, GCS 15], moving all extremities spontaneously. Full physical exam performed and significant for no significant physical exam abnormalities, satting appropriately on home O2. Differential includes but is not limited to UTI, pyelonephritis, kidney stone, aortic pathology. Patient was given Tylenol Toradol Zofran for symptomatic management and correction of underlying abnormalities. Workup initiated including CBC CMP UA blood cultures CT abdomen pelvis with IV contrast. On re-evaluation, patient [remains afebrile, HD stable.] Laboratory workup independently interpreted by me and significant for no significant leukocytosis, mild hyponatremia, mildly elevated bilirubin. Patient handed off pending urine and CT results. Wade Frederick: Upon assumption care patient was hemodynamically stable. Workup thus far reviewed by me, hematologic labs are nonactionable, no leukocytosis, there is sodium 131 and he has had hyponatremia before for which outpatient workup will be pursued at this time as he is not currently symptomatic. He has significant urinary tract infection although bacteria is negative this may indicate that his antibiotics are beginning to work. CT imaging shows calcification in the wall of the gallbladder no evidence of ureterolithiasis. Given this patient will be discharged at this time with close outpatient follow-up. Given he has been taking his antibiotics for less than 48 hours I would not consider this a true antibiotic failure. Interestingly upon further questioning patient had his gallbladder taken out 4 months ago, it may be that only part of his gallbladder was taken out. However he is not tender in his right upper quadrant and therefore continued workup and evaluation be deferred at this time he will be followed up on an outpatient basis by his primary surgeon. Patient is already on cefdinir for an appropriate course and will follow-up with Dr. Lyons to ensure resolution. Patient was given multiple return precautions verbalized understanding. Procedures <Indra Chiu MD - Last Filed: 02/28/24 06:52> Risk/Benefits of Procedure(s) Were Explained: Yes Critical Care <Indra Chiu MD - Last Filed: 02/28/24 06:52> Critical Care Time Critical Care Time: No
--- NOTE | 2024-02-28 05:55 | CT_ITS ---
FINAL REPORT TECHNIQUE: After the administration of intravenous contrast, axial images were obtained through the abdomen and pelvis by computed tomography. This study was performed with technique to keep radiation doses as low as reasonably achievable, (ALARA). Individualized dose reduction techniques using automated exposure control or adjustment of the MA and/or KV according to the patient's size were employed. CLINICAL HISTORY: flank pain, dysuria, hx stones COMPARISON: 12/27/2023 FINDINGS: Abdomen: Scarring is seen at the lung bases. The liver is normal in size and attenuation. There is a linear calcification in the wall of the gallbladder. Gallbladder is partially contracted. The spleen is unremarkable. The adrenals are normal. The pancreas is unremarkable. There are several left renal stones measuring up to 6 mm in the lower pole. The aorta is normal in caliber. There is no free fluid or adenopathy. There is a periampullary duodenal diverticulum. Pelvis: The appendix is not identified. The urinary bladder is incompletely distended. There are scattered sigmoid diverticula. There is nodularity noted at the prostate. There is no free fluid or adenopathy. IMPRESSION: Calcification in the wall of the gallbladder. Left nephrolithiasis. Periampullary duodenal diverticulum. Reviewed, Interpreted and Dictated by Chicho Zimmer MD Transcribed by Nat Ramsey Authenticated and . [facility]
[2024-02-28] MEDS: ACETAMINOPHEN 500MG TAB 1000 MG PO (05:58)
[2024-02-28] MEDS: ONDANSETRON 4MG/2ML VIAL 4 MG IV (05:59)
[2024-02-28] MEDS: KETOROLAC 30MG/ML VIAL 30 MG IV (05:59)
[2024-02-28 06:02] LABS: Basophils % 0.2 % (0.1-2.0); Eosinophils % 0.6 % (0.1-12.0); Hematocrit 44.8 % (42.0-52.0); Hemoglobin 14.7 g/dL (14.1-18.0); Lymphocytes # 0.5 K/mm3 (0.7-4.5); Lymphocytes % 7.4 % (10-50); Mean Corpuscular HGB Conc 32.9 g/dL (31.8-35.4); Mean Corpuscular Hemoglobin 32.1 pg (27.0-31.2); Mean Corpuscular Volume 97.8 fl (80-94); Mean Platelet Volume 6.5 fl (7.4-10.4); Monocytes # 0.2 K/mm3 (0.1-1.0); Monocytes % 2.5 % (1.7-9.3); Neutrophils # 5.4 K/mm3 (1.8-7.8); Neutrophils % 89.3 % (37.0-80.0); Platelet Count 116 K/mm3 (142-424); Red Blood Count 4.58 M/mm3 (4.60-6.20); Red Cell Distribution Width 14.7 % (11.5-17.5); White Blood Count 6.1 K/mm3 (4.8-10.8)
[2024-02-28 06:08] LABS: MANUAL DIFFERENTIAL MANUAL DIFFERENTIAL (MANUAL DIFF)
[2024-02-28 06:09] LABS: Alanine Aminotransferase 23 U/L (12-78); Albumin Level 3.6 g/dl (3.5-5.0); Albumin/Globulin Ratio 1.1 (1.1-1.8); Alkaline Phosphatase 70 U/L (38-126); Anion Gap 8.9 mEq/L (5-15); Aspartate Amino Transferase 23 U/L (17-59); Bilirubin,Total 1.5 mg/dl (0.2-1.3); Blood Urea Nitrogen 11 mg/dl (9-20); Calcium 8.9 mg/dl (8.4-10.2); Carbon Dioxide 27 mmol/L (22.0-30.0); Chloride 99 mmol/L (98-107); Creatinine Clearance Estimated 106 mL/min (50-200); Estimated Glomerular Filt Rate 74 ml/min (>60); GFR (African American) 90 ML/MIN (>60); Globulin 3.2 g/dL (1.3-3.2); Glucose 118 mg/dl (74-100); Potassium 3.9 mmoL/L (3.5-5.1); Sodium 131 mmol/L (136-145); Total Protein,Serum 6.8 g/dl (6.3-8.2)
[2024-02-28] MEDS: IOPAMIDOL-370 (76%);100ML BOTTLE 75 ML IV (06:38)
[2024-02-28] MEDS: SODIUM CHLORIDE 0.9% 10ML SYR (RAD ONLY) 10 ML IV (06:38)
[2024-02-28 06:54] LABS: Microscopic, Urine URINE MICROSCOPIC (MICROSCOPIC)
[2024-02-28 07:18] LABS: Appearance,Urine SL CLOUDY (Clear); Bilirubin,Urine Negative (Negative); Blood, Urine 3+ (Negative); Color,Urine YELLOW (Yellow); Glucose,Urine (UA) Negative (Negative); Ketones,Urine Negative (Negative); Leukocyte Esterase,Urine 2+ (Negative); Nitrate,Urine Negative (Negative); Protein,Urine 1+ (Negative); Specific Gravity, Urine 1.015 (1.005-1.030); Urobilinogen,Urine 0.2 EU/dl (0.2)
--- NOTE | 2024-02-28 07:58 | PC.NURSE ---
Called lab per Dr. Frederick, to check on the status of urine micro that was collected at 0648.
[2024-02-28 08:09] LABS: RBC,Urine 20-50 #/hpf (0-3)
[2024-02-28 08:16] LABS: Lymphocytes % 7 % (10-50); Neutrophils % 93 % (42-76); Platelet Estimate Slight Decrease; RBC Morphology Normal; Total Cells Counted 100
--- NOTE | 2024-02-28 08:19 | PC.NURSE ---
dr juarez at bedside to update pt and family
--- NOTE | 2024-03-02 10:57 | PC.NURSE ---
no growth on urine culture, ntd
== END 2024-02-28 08:45 | disposition home or self-care (01) ==
PROVIDERS: Emergency Provider Emergency Medicine; PCP Nurse Practitioner Family
DX: R10.31 Right lower quadrant pain (principal); R10.32 Left lower quadrant pain; K82.8 Other specified diseases of gallbladder; N39.0 Urinary tract infection, site not specified; J96.11 Chronic respiratory failure with hypoxia; I10 Essential (primary) hypertension; E78.5 Hyperlipidemia, unspecified; N40.0 Benign prostatic hyperplasia without lower urinary tract symptoms; I25.110 Atherosclerotic heart disease of native coronary artery with unstable angina pectoris; I25.2 Old myocardial infarction; E87.1 Hypo-osmolality and hyponatremia
CPT/HCPCS: 74177; 80053; 81001; 85007; 85025; 85027; 87040; 87086; 96374; 96375; 99285; J1885; J2405; Q9967

== ENCOUNTER 2024-03-27 07:37 | Day surgery (SDC) | payer MEDICARE, SELFPAY ==
[2024-03-25 12:45] VITALS: BMI 36.5
--- OUTSIDE RECORDS SUMMARY | 2024-03-27 07:40 | XMS_ITS ---
Author Organization [facility] Address [address] [place] [address] Care Team Providers Care Outreach Representative Name Role Phone Steven Keating Primary Care Provider [phone] [place] [facility] [phone] Encounters Encounter Location Date Provider Diagnosis [address] [address] 02/19/2024 Mali Hancock Plan Of Treatment No Information Progress Notes * Nazario KWON RDOB: [birth year] (68 yo M)Acc No.[id number]:02/19/2024 Patient:?Nazario KWON :1955???Age:68 Y???Sex:Male Address:[address] [address] * true * Date:? Generated for Printi ng/Natalie/eTransmitting on:?03/27/2024 07:40 AM EDT
--- OUTSIDE RECORDS SUMMARY | 2024-03-27 07:40 | XMS_ITS ---
Author Organization [facility] Address [address] [place] [address] Care Team Providers Care Transmission Superintendent Name Role Phone Steven Keating Primary Care Provider [phone] Mali Hancock Unavailable [phone] Allergies No Known Allergies Results Component Value Reference Range Notes CULTURE, URINE, ROUTINE (395 ) Reviewed date:03/01/2024 12:47:49 PM Interpretation: Performing Lab:CB, [facility] [facility] [email or web address]], [facility]qhjMY[address] Lito Tobar Notes/Report: NON-FASTING; NON-FASTING; NON-FASTING CULTURE, URINE, ROUTINE SEE NOTE CULTURE, URINE, ROUTINE Micro Number: [id number] Test Status: Final Specimen Source: Urine Specimen Quality: Adequate Result: Greater than 100,000 CFU/mL of Escherichia coli E.coli INT COTY AMOX/CLAVULANATE S <=2 AMP/SULBACTAM S <=2 CEFAZOLIN NR <=4 2 CEFEPIME S <=0.12 CEFTAZIDIME S <=1 CEFTRIAXONE S <=0.25 CIPROFLOXACIN S <=0.06 GENTAMICIN S <=1 IMIPENEM S <=0.25 LEVOFLOXACIN S <=0.12 MEROPENEM S <=0.25 NITROFURANTOIN S <=16 PIP/TAZOBACTAM S <=4 TRIMETHOPRIM/SULFA S <=20 S = Susceptible I = Intermediate R = Resistant NS = Not susceptible SDD = Susceptible Dose Dependent * = Not Tested NR = Not Reported NN = See Therapy Comments THERAPY COMMENTS Note 1: For infections other than uncomplicated UTI caused by E. coli, K. pneumoniae or P. mirabilis: Cefazolin is resistant if COTY > or = 8 mcg/mL. (Distinguishing susceptible versus intermediate for isolates with COTY < or = 4 mcg/mL requires additional testing.) Note 2: For uncomplicated UTI caused by E. coli, K. pneumoniae or P. mirabilis: Cefazolin is susceptible if COTY <32 mcg/mL and predicts susceptible to the oral agents cefaclor, cefdinir, cefpodoxime, cefprozil, cefuroxime, cephalexin and loracarbef. CBC (INCLUDES DIFF/PLT) (639 9) Reviewed date:02/28/2024 09:29:58 AM Interpretation: Performing Lab:ELENA, [facility], [place] NEUROSCIENCESAdmxQO[address] Lito Tobar Notes/Report: NON-FASTING; NON-FASTING; NON-FASTING WHITE BLOOD CELL COUNT 12.1 3.8-10.8 Thousand/ uL RED BLOOD CELL COUNT 4.49 4.20-5.80 Million/uL HEMOGLOBIN 14.2 13.2-17.1 g/dL HEMATOCRIT 42.6 38.5-50.0 % MCV 94.9 80.0-100.0 fL MCH 31.6 27.0-33.0 pg MCHC 33.3 32.0-36.0 g/dL RDW 13.5 11.0-15.0 % PLATELET COUNT 118 140-400 Thousand/uL MPV 9.3 7.5-12.5 fL ABSOLUTE NEUTROPHILS 9813 [id number] cells/uL ABSOLUTE LYMPHOCYTES 5315 574-9871 cells/uL ABSOLUTE MONOCYTES 980 200-950 cells/uL ABSOLUTE EOSINOPHILS 24 15-500 cells/uL ABSOLUTE BASOPHILS 24 0-200 cells/uL NEUTROPHILS 81.1 LYMPHOCYTES 10.4 MONOCYTES 8.1 EOSINOPHILS 0.2 BASOPHILS 0.2 MAGNESIUM (622) Reviewed date:02/28/2024 09:29:57 AM Interpretation: Performing Lab:ELENA, [employer], [facility] NEUROSCIENCESBgvrXH[address] Lito Tobar Notes/Report: NON-FASTING; NON-FASTING; NON-FASTING MAGNESIUM 1.8 1.5-2.5 mg/dL COMPREHENSIVE METABOLIC PANE L ([id number]) Reviewed date:02/28/2024 09:29:57 AM Interpretation: Performing Lab:CB, [facility] [address], [place] GironCmxoYD[address] Lito Tonya Tobar Notes/Report: NON-FASTING; NON-FASTING; NON-FASTING GLUCOSE 94 65-99 mg/dL Fasting reference interval UREA NITROGEN (BUN) 13 7-25 mg/dL CREATININE 0.89 0.70-1.35 mg/dL EGFR 93 > OR = 60 mL/min/1.73m2 BUN/CREATININE RATIO SEE NOTE: 6-22 (calc) Not Reported: BUN and Creatinine are within reference range. SODIUM 134 135-146 mmol/L POTASSIUM 4.0 3.5-5.3 mmol/L CHLORIDE 98 98-110 mmol/L CARBON DIOXIDE 29 20-32 mmol/L CALCIUM 8.7 8.6-10.3 mg/dL PROTEIN, TOTAL 5.7 6.1-8.1 g/dL ALBUMIN 3.6 3.6-5.1 g/dL GLOBULIN 2.1 1.9-3.7 g/dL (calc) ALBUMIN/GLOBULIN RATIO 1.7 1.0-2.5 (calc) BILIRUBIN, TOTAL 1.3 0.2-1.2 mg/dL ALKALINE PHOSPHATASE 64 35-144 U/L AST 12 10-35 U/L ALT 12 9-46 U/L Urinalysis Reviewed date:02/27/2024 05:36:44 PM Interpretation: Performing Lab: Notes/Report: Color/Clarity yellow cloudy Leuk large Nitrite positive Urobili 30mg/dL Protein 6.5 pH 7.0 Blood moderate Sp. Gr. 1.010 Ketone neg Bili neg Glucose neg REASON FOR VISIT Patient here today for low blood pressure and dizziness. He states he noticed it last night., vomiting , weakness Medications Medication SIG (Take, Route, Frequency, Duration) Notes Start Date End Date Status ondansetron 4 mg 1 tab(s) orally ever y 8 hours as needed for nausea for 4 days 02/27/2024 Active cefdinir 300 mg 1 cap(s) orally ever y 12 hours for 7 days 02/27/2024 Active Tylenol 8 HR Arthritis Pain 650 mg 2 tab(s) orally every 8 hours for 3 day(s) 12/31/2023 Active isosorbide mononitrate 60 mg TAKE ONE TABLET BY MOUTH EVERY DAY orally once a day for 90 days Active oxyBUTYnin 10 mg/24 hr 1 tab(s) orally once a day Active Dodex 1000 mcg/mL INJECT 1000MCG (1ML) INTRAMUSCULARLY ONCE A MONTH Active furosemide 40 mg 1/2 tab orally once a day for 30 days 12/31/2023 Active Vitamin D3 125 mcg 1 cap(s) orally once a day for 30 day(s) 12/31/2023 Active Osteo Bi-Flex Advanced with Ascorbic Acid and Minerals 2 tab(s) orally once a day for 30 day(s) 12/31/2023 Active magnesium oxide 400 mg 1 tab(s) orally once a day 12/31/2023 Active traMADol 50 mg 1 tab(s) orally 3 ti mes a day prn 12/24/2023 Active Xarelto 20 mg TAKE 1 TABLET ONE TI ME DAILY WITH FOOD Active Vitamin C 500 mg 2 cap orally once a day Active Lipitor 40 mg 1 tab(s) orally once a day Active carvedilol 6.25 mg 1/2 tab orally 2 solomon es a day Active nitroglycerin 0.4 mg 1 tab(s) sublingual ly every 5 minutes prn for 30 days Active Metamucil 3.4 g/5.2 g as directed orally once a day for 7 day(s) 12/31/2023 Active potassium chloride 10 mEq 1 cap(s) orally once a day 12/31/2023 Active omeprazole 20 mg 2 caps orally once a day Active Flomax 0.4MG 1 capsule orally onc e a day Active Urinozinc Prostate Health Complex Classic Therapeutic Multiple Vitamins with Minerals 1 cap(s) orally once a day Active cyclobenzaprine 5 mg 1 tab(s) orally at HS for 2 weeks 08/16/2016 Active Syringe 1cc 28g 1/2 - for 30 days 03/13/2021 Active Vital Signs Temperature 98.2 degrees Fahrenheit 02/27/20 24 Blood pressure systolic 90 mm Hg 02/27/20 24 Blood pressure diastolic 62 mm Hg 024 Heart Rate 76 /min 02/27/2024 Height 5 ft 9 in in 02/27/2024 Weight 237.6 lbs 02/27/2024 BMI 35.08 kg/m2 02/27/2024 Encounters Encounter Location Date Provider Diagnosis [facility] [address] [place] [address] 02/27/2024 Mali Hancock Dysuria R30.0 ; Acut e UTI N39.0 ; Hypotension, unspecified hypotension type I95.9 and Nausea without vomiting R11.0 Assessments Encounter Date Diagnosis (ICD Code) Assessment Notes Treatment Notes Treatment Clinical Notes 02/27/2024 Dysuria (ICD-10 - R30.0) 02/27/2024 Acute UTI (ICD-10 - N39.0) Ceftriaxone given today IM. He will start cefdinir orally tomorrow. Encouraged him not to take his diuretic for the next 2 to 3 days until his blood pressure is back around his baseline. Strict return precautions reviewed. He will keep follow-up with urology as scheduled 02/27/2024 Hypotension, unspecified hypotension type (ICD-10 - I95.9) 02/27/2024 Nausea without vomiting (ICD-10 - R11.0) Plan Of Treatment Medication Medication Name Sig Start Date Stop Date Notes ondansetron 4 mg 1 tab(s) orally ever y 8 hours as needed for nausea for 4 days 02/27/2024 cefdinir 300 mg 1 cap(s) orally every 12 hours for 7 days 02/27/2024 Treatment Notes Assessment Notes Acute UTI Ceftriaxone given to day IM. He will start cefdinir orally tomorrow. Encouraged him not to take his diuretic for the next 2 to 3 days until his blood pressure is back around his baseline. Strict return precautions reviewed. He will keep follow-up with urology as scheduled Next Appt Details Follow Up: prn, Reason: Medications Administered Medication Instructions Date of Administration Dosage Notes Ceftriaxone 500 02/27/2024 500 mg Progress Notes * Nazario KWON RDOB: [birth year] (68 yo M)Acc No.[id number]:02/27/2024 Progress Notes Patient:?Nazario KWON Provider:?MAYRA Valadez :1955???Age:68 Y???Sex:Male Butch e:02/27/2024 Address:[address] [place], [id number] Pcp:Steven Keating Subjective: * Chief Complaints: * ???1. Patient here today for low blood pressure and dizziness. He states he noticed it last night.. 2. Vomiting , weakness. * HPI: ???gen:? 68-year-old male with extensive past medical history including hospitalization several times this year with urinary sepsis and cholecystitis which was quite complicated. Has done better over the past couple of months since being on Macrobid prophylactically, that is now complete and he has follow-up with urology sometime in the next month or so. Over the past 24 hours has developed some nausea, 2 episodes of vomiting, weakness and dizziness. Blood pressure was very low at home earlier today. He denies chest pain, shortness of breath above his baseline. Still using supplemental oxygen. He denies any localized abdominal pain. Both of his vomiting episodes have been after he has attempted to drink a glass of fluids. He does endorse some mild intermittent dysuria. No gross hematuria. * ROS:?RESPIRATORY:?Shortness of breath?yes,?at baseline.?no?Cough.?CARDIOLOGY:?no?Chest pain.?no?Palpitations.?no?Leg edema.?CONSTITUTIONAL:?Loss of appetite?yes.?no?Fever.?Weakness?yes.?DERMATOLOGY:?no?Rash.?GASTROENTEROLOGY:?Vomiting?yes.?no?Abdominal pain.?no?Diarrhea.?UROLOGY:?Dysuria?yes.?no?Difficulty urinating.?no?Blood in urine.? * Medical History:?Hypertensio n, Hypercholestrolemia, degenerative disc disease s/p surgery. On tramadol, coronary artery disease-stents. 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 * Medications:?Taking oxyBUTYn in 10 mg/24 hr tablet, extended release 1 tab(s) orally once a day , Taking Urinozinc Prostate Health Complex Classic Therapeutic Multiple [...] day , Taking carvedilol 6.25 mg tablet 1/2 tab orally 2 times a day , Taking Dodex 1000 mcg/mL solution INJECT 1000MCG (1ML) INTRAMUSCULARLY ONCE A MONTH , Taking furosemide 40 mg tablet 1/2 tab orally once a day , Taking Vitamin [...] tab(s) orally every 8 hours , Taking isosorbide mononitrate 60 mg tablet, extended release TAKE ONE TABLET BY MOUTH EVERY DAY orally once a day , Discontinued nitrofurantoin macrocrystals 100 mg capsule 1 cap(s) orally once a day at bedtime , Medication List reviewed and reconciled with the patient * Allergies:?N.K.D.A. Objective: * Vitals:?Nurse: brunilda, Pain: 5 g eneral pain, Temp: 98.2, RR: 20, HR: 76, BP: 90/62, Ht: 5 ft 9 in, Wt: 237.6, BMI:35.08. * Examination: ???General Examination: ?General?Pleasant and Cooperative, NAD on O2 by NC.?Heart:?RRR, No m/r/g/h, Nl S1S2.?Lungs:?LCTAB, No wheezes, crackles or rhonchi, Good air movement.?Abdomen:?soft, NT/ND, BS present. No organomegaly.?Neurologic Exam:?Alert and oriented x 3.?Peripheral pulses:?normal (2+) bilaterally.?Extremities:?no clubbing, no edema,.?neck?supple,, no thyromegaly,, no lymphadenopathy,.?Psych?Normal Mood/Affect.? Assessment: * Assessment: 1.?Acute UTI - N39.0 (Primar y)???2.?Dysuria - R30.0???3.?Hypotension, unspecified hypotension type - I95.9???4.?Nausea without vomiting - R11.0??? Plan: * Treatment: 2.?Dysuria? Start cefdinir capsule, 300 mg, 1 cap(s), orally, every 12 hours, 7 days, 14 Capsule, Refills 0.?LAB: COMPREHENSIVE METABOLIC PANEL (23064) (Collection Date & Time - 02/27/2024 04:28 PM) ? Value Reference Range ?GLUCOSE 94 65-99 - mg/dL * ?UREA NITROGEN (BUN) 13 7-2 5 - mg/dL * ?CREATININE 0.89 0.70-1.35 - mg/dL * ?BUN/CREATININE RATIO SEE NOTE: - (calc) * ?SODIUM 134 L 135-146 - mmol/ L * ?POTASSIUM 4.0 3.5-5.3 - mmo l/L * ?CHLORIDE 98 98-110 - mmol/ L * ?CARBON DIOXIDE 29 20-32 - mmol/L * ?CALCIUM 8.7 8.6-10.3 - mg/d L * ?PROTEIN, TOTAL 5.7 L 6.1-8.1 - g/dL * ?ALBUMIN 3.6 3.6-5.1 - g/dL * ?GLOBULIN 2.1 1.9-3.7 - g/dL (calc) * ?ALBUMIN/GLOBULIN RATIO 1.7 1.0-2.5 - (calc) * ?BILIRUBIN, TOTAL 1.3 H 0.2-1. 2 - mg/dL * ?ALKALINE PHOSPHATASE 64 35 -144 - U/L * ?AST 12 10-35 - U/L * ?ALT 12 9-46 - U/L * ?EGFR 93 > OR = 60 - mL/ min/1.73m2 ?LAB: MAGNESIUM (622) (Collection Date & Time - 02/27/2024 04:28 PM)* ? Value Reference Range ?MAGNESIUM 1.8 1.5-2.5 - mg/ dL ?LAB: CBC (INCLUDES DIFF/PLT) (7592) (Collection Date & Time - 02/27/2024 04:28 PM)* ? Value Reference Range ?WHITE BLOOD CELL COUNT 12.1 H 3.8-10.8 - Thousand/uL * ?RED BLOOD CELL COUNT 4.49 4. 20-5.80 - Million/uL * ?HEMOGLOBIN 14.2 13.2-17.1 - g/dL * ?HEMATOCRIT 42.6 38.5-50.0 - % * ?MCV 94.9 80.0-100.0 - fL * ?MCH 31.6 27.0-33.0 - pg * ?MCHC 33.3 32.0-36.0 - g/d L * ?RDW 13.5 11.0-15.0 - % * ?PLATELET COUNT 118 L 140-400 - Thousand/uL * ?NEUTROPHILS 81.1 - % * ?ABSOLUTE NEUTROPHILS 9813 H 15 00-7800 - cells/uL * ?LYMPHOCYTES 10.4 - % * ?ABSOLUTE LYMPHOCYTES 1258 85 0-3900 - cells/uL * ?MONOCYTES 8.1 - % * ?ABSOLUTE MONOCYTES 980 H 200- 950 - cells/uL * ?EOSINOPHILS 0.2 - % * ?ABSOLUTE EOSINOPHILS 24 15 -500 - cells/uL * ?BASOPHILS 0.2 - % * ?ABSOLUTE BASOPHILS 24 0-20 0 - cells/uL * ?MPV 9.3 7.5-12.5 - fL ?LAB: CULTURE, URINE, ROUTINE (395) (Collection Date & Time - 02/27/2024 04:28 PM)* ? Value Reference Range ?CULTURE SEE NOTE A - * This lab was reviewed by Mildred Hancock on 03/01/2024 at 12:47 PM EDT ?LAB: Urinalysis (Collection Date & Time - 02/27/2024)* ? Value Reference Range ?Color/Clarity yellow cloudy * ?Leuk large * ?Nitrite positive * ?Urobili 30mg/dL * ?Protein 6.5 * ?pH 7.0 * ?Blood moderate * ?Sp. Gr. 1.010 * ?Ketone neg * ?Bili neg * ?Glucose neg * Master Clark 02/27/2024 04:46:32 PM EDT > 3.?Hypotension, unspecified hypotension type?LAB: COMPREHENSIVE METABOLIC PANEL (12170) (Collection Date & Time - 02/27/2024 04:28 PM)* ? Value Reference Range ?GLUCOSE 94 65-99 - mg/dL * ?UREA NITROGEN (BUN) 13 7-2 5 - mg/dL * ?CREATININE 0.89 0.70-1.35 - mg/dL * ?BUN/CREATININE RATIO SEE NOTE: 6- 22 - (calc) * ?SODIUM 134 L 135-146 - mmol/ L * ?POTASSIUM 4.0 3.5-5.3 - mmo l/L * ?CHLORIDE 98 98-110 - mmol/ L * ?CARBON DIOXIDE 29 20-32 - mmol/L * ?CALCIUM 8.7 8.6-10.3 - mg/d L * ?PROTEIN, TOTAL 5.7 L 6.1-8.1 - g/dL * ?ALBUMIN 3.6 3.6-5.1 - g/dL * ?GLOBULIN 2.1 1.9-3.7 - g/dL (calc) * ?ALBUMIN/GLOBULIN RATIO 1.7 1.0-2.5 - (calc) * ?BILIRUBIN, TOTAL 1.3 H 0.2-1. 2 - mg/dL * ?ALKALINE PHOSPHATASE 64 35 -144 - U/L * ?AST 12 10-35 - U/L * ?ALT 12 9-46 - U/L * ?EGFR 93 > OR = 60 - mL/ min/1.73m2 ?LAB: MAGNESIUM (622) (Collection Date & Time - 02/27/2024 04:28 PM)* ? Value Reference Range ?MAGNESIUM 1.8 1.5-2.5 - mg/ dL ?LAB: CBC (INCLUDES DIFF/PLT) (4826) (Collection Date & Time - 02/27/2024 04:28 PM)* ? Value Reference Range ?WHITE BLOOD CELL COUNT 12.1 H 3.8-10.8 - Thousand/uL * ?RED BLOOD CELL COUNT 4.49 4. 20-5.80 - Million/uL * ?HEMOGLOBIN 14.2 13.2-17.1 - g/dL * ?HEMATOCRIT 42.6 38.5-50.0 - % * ?MCV 94.9 80.0-100.0 - fL * ?MCH 31.6 27.0-33.0 - pg * ?MCHC 33.3 32.0-36.0 - g/d L * ?RDW 13.5 11.0-15.0 - % * ?PLATELET COUNT 118 L 140-400 - Thousand/uL * ?NEUTROPHILS 81.1 - % * ?ABSOLUTE NEUTROPHILS 9813 H 15 00-7800 - cells/uL * ?LYMPHOCYTES 10.4 - % * ?ABSOLUTE LYMPHOCYTES 1258 85 0-3900 - cells/uL * ?MONOCYTES 8.1 - % * ?ABSOLUTE MONOCYTES 980 H 200- 950 - cells/uL * ?EOSINOPHILS 0.2 - % * ?ABSOLUTE EOSINOPHILS 24 15 -500 - cells/uL * ?BASOPHILS 0.2 - % * ?ABSOLUTE BASOPHILS 24 0-20 0 - cells/uL * ?MPV 9.3 7.5-12.5 - fL 4.?Nausea without vomiting? Start ondansetron tablet, 4 mg, 1 tab(s), orally, every 8 hours as needed for nausea, 4 days, 12, Refills 0.?? * Therapeutic Injections:? Ceftriaxone 500 : 500 mg (Route: Intramuscular) given by ALYSON Olivares on left thigh * Procedure Codes:?56705 URINA LYSIS, Modifiers: QW , J0696 Ceftriaxone 500 * Follow Up:?prn * * Sign off status: Completed true * Provider:?AUSTIN ValadezP Date:? 02/27/2024 Generated for Lorraine bates/Natalie/eTransmitting on:?03/27/2024 07:40 AM EDT History and Physical Notes * Examination Category Sub-Category Detail Notes General Examination Heart: RRR, No m/r/ g/h, Nl S1S2 Lungs: LCTAB, No wheezes, c rackles or rhonchi, Good air movement Abdomen: soft, NT/ND, BS pres ent. No organomegaly Extremities: no clubbing, no jorge luis a, Neurologic Exam: Alert and oriented x 3 Peripheral pulses: normal (2+) bilatera lly neck supple,, no thyromeg alexis,, no lymphadenopathy, General Pleasant and Coopera tive, NAD on O2 by NC Psych Normal Mood/Affect
--- OUTSIDE RECORDS SUMMARY | 2024-03-27 07:40 | XMS_ITS ---
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 Name Role Phone Steven Keating Primary Care Provider Mali Hancock Unavailable [phone] Allergies No Known Allergies REASON FOR VISIT med ck/fu- er f/u, [employer] Paf, 2nd shingles , flu shot Medications Medication SIG (Take, Route, Frequency, Duration) Notes Start Date End Date Status Tylenol 8 HR Arthritis Pain 650 mg 2 tab(s) orally every 8 hours for 3 day(s) 12/31/2023 Active isosorbide mononitrate 60 mg TAKE ONE TABLET BY MOUTH EVERY DAY orally once a day for 90 days Active magnesium oxide 400 mg 1 tab(s) orally once a day 12/31/2023 Active ondansetron 4 mg 1 tab(s) orally ever y 8 hours as needed for nausea for 4 days 02/27/2024 Active cefdinir 300 mg 1 cap(s) orally ever y 12 hours for 7 days 02/27/2024 Active Vitamin D3 125 mcg 1 cap(s) orally once a day for 30 day(s) 12/31/2023 Active Osteo Bi-Flex Advanced with Ascorbic Acid and Minerals 2 tab(s) orally once a day for 30 day(s) 12/31/2023 Active Dodex 1000 mcg/mL INJECT 1000MCG (1ML) INTRAMUSCULARLY ONCE A MONTH Active furosemide 40 mg 1/2 tab orally once a day for 30 days 12/31/2023 Active carvedilol 6.25 mg 1/2 tab in the morni ng and 1 tab in the evening orally 2 times a day Active Flomax 0.4MG 1 capsule orally onc e a day Active traMADol 50 mg 1 tab(s) orally 3 ti mes a day prn 12/24/2023 Active Lipitor 40 mg 1 tab(s) orally once a day Active Xarelto 20 mg TAKE 1 TABLET ONE TI ME DAILY WITH FOOD Active Vitamin C 500 mg 2 cap orally once a day Active Metamucil 3.4 g/5.2 g as directed orally once a day for 7 day(s) 12/31/2023 Active potassium chloride 10 mEq 1 cap(s) orally once a day 12/31/2023 Active Syringe 1cc 28g /2 - for 30 days 03/13/2021 Active nitroglycerin 0.4 mg 1 tab(s) sublingual ly every 5 minutes prn for 30 days Active omeprazole 20 mg 2 caps orally once a day Active Urinozinc Prostate Health Complex Classic Therapeutic Multiple Vitamins with Minerals 1 cap(s) orally once a day Active cyclobenzaprine 5 mg 1 tab(s) orally at HS for 2 weeks 08/16/2016 Active nitrofurantoin macrocrystals-monohydrate 100 mg 1 cap(s) orally once at bedtime Active oxyBUTYnin 10 mg/24 hr 1 tab(s) orally once a day Active Immunizations Vaccine Route Administration Date Status Comme nts Fluzone High Dose IM Intramuscular 03/04/2024 Administered SHINGRIX IM Intramuscular 03/04/2024 Administered Problems Problem Type SNOMED Code ICD Code Onset Dates Problem Status W/U Status Risk Notes Problem 57734935 Nephrolithiasis (N20.0) Active confirmed Problem 298028548 BMI 38.0-38.9,ad ult (Z68.38) Active confirmed Problem 139553316 BMI 36.0-36.9,ad ult (Z68.36) Active confirmed Vital Signs BMI 36.18 kg/m2 03/04/2024 Weight 245 lbs 03/04/2024 Height 5 ft 9 in in 03/04/2024 Heart Rate 80 /min 03/04/2024 Blood pressure systolic 116 mm Hg 03/04/20 24 Blood pressure diastolic 72 mm Hg 024 Temperature 98 degrees Fahrenheit 03/04/2024 Encounters Encounter Location Date Provider Diagnosis [address] [address] 03/04/2024 Mali Hancock Essential hypertensi on I10 ; Chronic diastolic CHF (congestive heart failure) I50.32 ; History of coronary artery disease Z86.79 ; Chronic hypoxemic respiratory failure J96.11 ; Hx pulmonary embolism Z86.711 ; Encounter for immunization Z23 ; Recurrent UTI N39.0 ; Nephrolithiasis N20.0 ; Spinal stenosis, other region M48.00 ; Arthropathy, lower leg M12.9 ; 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 03/04/2024 Chronic diastolic CH F (congestive heart failure) (ICD-10 - I50.32) No changes recommended today, he is euvolemic on exam. Cardiology is following 03/04/2024 History of coronary artery disease (ICD-10 - Z86.79) Continue statin, aspirin 03/04/2024 Chronic hypoxemic respiratory failure (ICD-10 - J96.11) Continue supplemental O2 has failed previous attempts to discontinue this 03/04/2024 Hx pulmonary embolis m (ICD-10 - Z86.711) Continue anticoagulation, cardiology is following as well 03/04/2024 Encounter for immunization (ICD-10 - Z23) 03/04/2024 Recurrent UTI (ICD-1 0 - N39.0) Complete antibiotics for his acute infection and then preventive antibiotics. Continue urology follow-up 03/04/2024 Nephrolithiasis (ICD-10 - N20.0) 03/04/2024 Spinal stenosis, other region (ICD-10 - M48.00) Remains on tramadol, poor candidate for nonsteroidals because of his other chronic disease. Controlled substance agreement is on file and Duarte has been appropriate 03/04/2024 Arthropathy, lower leg (ICD-10 - M12.9) 03/04/2024 correction current us e of opiate analgesic (ICD-10 - Z79.891) 03/04/2024 BMI 36.0-36.9,adult (ICD-10 - Z68.36) Weight has trended down significantly during his months of acute illness, healthy diet encouraged Plan Of Treatment Next Appt Details Follow Up: 3 Months, Reason: Progress Notes * Nazario KWON RDOB: [birth year] (68 yo M)Acc No.[id number]:03/04/2024 Progress Notes Patient:?Nazario KWON Provider:?MAYRA Valadez :1955???Age:68 Y???Sex:Male Butch e:03/04/2024 Address[address] [id number] Pcp:Steven Keating Subjective: * Chief Complaints: * ???1. Med ck/fu- er f/u. 2. [employer] Paf. 3. 2nd shingles , flu shot. * HPI: ???gen:? 68-year-old male presents for routine chronic disease?follow-up but also to FU regarding recent ED visit. Followed for chronic disease including CHF, hyperlipidemia, hypertension, BPH, CAD, B12 deficiency, spinal stenosis and arthritis. He contracted COVID 19 late 2021 and subsequently had NSTEMI, DVT and PE. Still on supplemental O2, has had ongoing cardiology FU, Dr Redman. On SGLT2I for some time but discontinued recently due to recurrent urosepsis Continues with exertion SOA, recovers with rest. Using O2 intermittently throughout the day and at night. Chronic pain is at baseline, fairly well controlled on as needed tramadol which he typically takes once a day. Pain around 4/10 with medication. He has been following with Dr Loera in [place] for bilat knee arthritis and has had injections in both recently, tolerated well, no bleeding issues. Injections are becoming less effective, wearing brace for stability Over the past few months has had episodes of presyncope, vomiting, weight loss, urinary tract infections. Has had several hospitalizations, ultimately ended up with cholecystectomy requiring IV antibiotics, drains. He had recovered from that and then began having issues with recurrent urinary tract infections. Has been following now with urology, Dr. Lyons, and had follow-up yesterday. Had done well for several weeks on a preventive dose of nitrofurantoin but after that was discontinued he had another episode of complicated urinary tract infection with chills, vomiting, presyncope. Was evaluated in the emergency department for this, given IV fluids. Was already on oral antibiotics which were appropriate based on his urine culture. He reports now that all of those symptoms have resolved. * ROS:?FUNCTIONAL STATUS:?ADLS?Independent for all ADL/IADL.?RESPIRATORY:?See HPI?Yes.?CARDIOLOGY:?See HPI?Yes.?CONSTITUTIONAL:?no?Loss of appetite.?no?Fever.?Weakness?yes,?improving.?DERMATOLOGY:?no?Rash.?ENDOCRINOLOGY:?Reviewed, No Symptoms Reported:?Yes.?GASTROENTEROLOGY:?See HPI?Yes.?MUSCULOSKELETAL:?See HPI?Yes.?NEUROLOGY:?Reviewed, No Symptoms Reported:?Yes.?PSYCHOLOGY:?Reviewed, No Symptoms Reported:?Yes.?UROLOGY:?See HPI?Yes.? * Medical History:?Hypertensio n, Hypercholestrolemia, degenerative disc disease s/p surgery. On tramadol, coronary artery disease-stents. Evaluated by Dr Redman September 2016, negative GXT with EF 48%, B12 def, BPH, Colonoscopy 2016, Dr Sullivan, Tubular Adenoma and Focal inflammation - Repeated August 2023 at [facility]-1 hyperplastic polyp, [facility] 2018, chronic CAD, no additional intervention needed, Weldon Palsy, DVT and PE during COVID 19 infection. * Surgical History:?back surge ry 2012, appendectomy, open 2014, cardiac stents in 1997 , colonoscopy 2016, zo cataract 2018, heart cath 09/2018, hernia repair 10/2018, Colonoscopy and EGD AUGUST 2023, gallbladder, drain tube 11/02/2023. * Hospitalization/Major Diagno stic Procedure:?all above surgeries , DVT, PE, COVID 19 12/2021, [facility]- abdomen pain, infection 10/28-, [facility] - Syncope 11/17-04/2024, [facility] - Syncope, infection in blood 11/18-, [facility]-infection in kidneys 12/2023, [facility]-kidney infection 12/2023. * Family History:?Father: dece ased, hypertension.?Mother: , coronary artery disease, DM, diagnosed with Cancer.?Paternal Grand Father: , stroke, diagnosed with Hypertension, Stroke. Paternal Grand Mother: , diagnosed with Hypertension, Stroke.?Maternal Grand Father: , stroke, diagnosed with Hypertension, Stroke.?Maternal Grand Mother: , diagnosed with Hypertension, Stroke.?Paternal uncle: .?Paternal aunt: .?Maternal uncle: alive, alzheimers, HTN.?Maternal aunt: , alzheimers, HTN.?Siblings: alive, Arthritissister-uterine cancer, diagnosed with Cancer, Hypertension.?Children: alive.?1 sister(s) - healthy. 1 son(s) , 1 daughter(s) - healthy. .? Paternal Aunts, 1 had a stroke and 1 with high blood pressure, 1 aunt with cancer\\nMaternal Aunt with Alzheimers\\nMaternal Uncle with Cirrhosis of the Liver. * Social History:?Smoking?Are you a:: former smoker , How long has it been since you last smoked?: > 10 years, Additional Findings: Tobacco User: Chews tobacco.?Recreational drug use: no. Exercise: yes, walking. Home smoke detector use: yes. Caffeine: yes, frequency:coffee 2 cups daily. Living Will: Yes. Alcohol: socially. Sexually active: yes. Travel outside [place]: no. Occupation: disabled. * Medications:?Taking nitrofur antoin macrocrystals-monohydrate 100 mg capsule 1 cap(s) orally once at bedtime , Taking oxyBUTYnin 10 mg/24 hr tablet, extended release 1 [...] Taking carvedilol 6.25 mg tablet 1/2 tab in the morning and 1 tab in the evening orally 2 times a day , Taking [...] DAY orally once a day , Taking ondansetron 4 mg tablet 1 tab(s) orally every 8 hours as needed for nausea , Taking cefdinir 300 mg capsule 1 cap(s) orally every 12 hours , Medication List reviewed and reconciled with the patient * Allergies:?N.K.D.A. Objective: * Vitals:?Nurse: meg, Pain: 0, Temp: 98, RR: 20, HR: 80, BP: 116/72, Ht: 5 ft 9 in, Wt: 245, BMI:36.18. * Examination: ???General Examination: ?General?Pleasant and Cooperative, NAD on O2 by NC.?Oral cavity:?Moist membranes.?Heart:?RRR, No m/r/g/h, Nl S1S2.?Lungs:?LCTAB, No wheezes, crackles or rhonchi, Good air movement.?Abdomen:?soft, NT/ND, BS present. No organomegaly.?Neurologic Exam:?Alert and oriented x 3.?Peripheral pulses:?normal (2+) bilaterally.?Extremities:?no clubbing, no edema, braces on both knees.?neck?supple,, no thyromegaly,, no lymphadenopathy,.?Psych?Normal Mood/Affect.? 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 Plan: * Treatment: 2.?Essential hypertension? Clinical Notes: Well-controlled on lower dose antihypertensives.?? 3.?History of coronary arter y disease? Clinical Notes: Continue statin, aspirin?? 4.?Chronic hypoxemic respira tory failure? Clinical Notes: Continue supplemental O2 has failed previous attempts to discontinue this?? 5.?Hx pulmonary embolism? Clinical Notes: Continue anticoagulation, cardiology is following as well?? 6.?Recurrent UTI? Clinical Notes: Complete antibiotics for his acute infection and then preventive antibiotics. Continue urology follow-up?? 7.?Spinal stenosis, other re gion? Clinical Notes: Remains on tramadol, poor candidate for nonsteroidals because of his other chronic disease. Controlled substance agreement is on file and Duarte has been appropriate?? 8.?BMI 36.0-36.9,adult? Clinical Notes: Weight has trended down significantly during his months of acute illness, healthy diet encouraged?? * Immunizations:? SHINGRIX (Dose No:1) (Route: Intramuscular) given by ISAURO Schmidt on Right Deltoid (Encounter for immunization)??? Fluzone High Dose : 0.7 mL (Dose No:1) (Route: Intramuscular) given by ISAURO Schmidt on Left Deltoid * Procedure Codes:?98079 SHING JAMIE, 22941 ADMINISTRATION IMMUNIZATION ONE VACCINE, 89997 Influenza High Dose Vaccine >65 Years Old, G0008 ADMINISTRATION-FLU VACCINE MEDICARE ONLY, 72512 HEALTH RISK [id number], 1111F [facility] * Preventive Medicine:? ??Counseling:?Living will?Has living will.?Care goal follow up plan?BMI management provided?Yes weight down about 20 pounds over the past year, still attempting to lose additional.? ??HARVINDER Screening:?Falls: Future screening for fall risks?Have you had two or more falls in the past year??Yes,?Have you had any falls with injury in the past year??No.? ??Depression Screening:?PHQ 2?Feeling down depressed or hopeless?No.? ??Immunizations:?influenza?Have you had a flu shot since the most recent February 08 ??Yes.?Pneumonia vaccine: Status for Older Adults?Are you up-to-date on your pneumonia vaccine? yes or no?yes.?Shingrix?UTD.?COVID?Completed series.?RSV vaccination?Completed for season.? ??Screening / Special Tests:?Colonoscopy?UTD, 2017.?PSA?normal.?Lung Cancer Screening?Not indicated - nonsmoker.? * Follow Up:?3 Months * * Sign off status: Completed true * Provider:?MAYRA Valadez Date:? 03/04/2024 Generated for Lorraine bates/Natalie/eTepismitting on:?03/27/2024 07:40 AM EDT History and Physical Notes * Examination Category Sub-Category Detail Notes General Examination Heart: RRR, No m/r/ g/h, Nl S1S2 Lungs: LCTAB, No wheezes, c rackles or rhonchi, Good air movement Abdomen: soft, NT/ND, BS pres ent. No organomegaly Extremities: no clubbing, no jorge luis a, braces on both knees Neurologic Exam: Alert and oriented x 3 Oral cavity: Moist membranes Peripheral pulses: normal (2+) bilatera lly neck supple,, no thyromeg alexis,, no lymphadenopathy, General Pleasant and Coopera tive, NAD on O2 by NC Psych Normal Mood/Affect
--- OUTSIDE RECORDS SUMMARY | 2024-03-27 07:41 | XMS_ITS | Patient Health Record ---
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 Role Phone Steven Keating Primary Care Provider [phone] Mali Hancock Unavailable [phone] Jasmyne Turner Unavailable [phone] Allergies No Known Allergies Medications Medication SIG (Take, Route, Frequency, Duration) Notes Start Date End Date Status Metamucil 3.4 g/5.2 g as directed orally once a day for 7 day(s) 12/31/2023 Active Vitamin D3 125 mcg 1 cap(s) orally once a day for 30 day(s) 12/31/2023 Active Osteo Bi-Flex Advanced with Ascorbic Acid and Minerals 2 tab(s) orally once a day for 30 day(s) 12/31/2023 Active Syringe 1cc 28g 1/2 - for 30 days 03/13/2021 Active Dodex 1000 mcg/mL INJECT 1000MCG (1ML) INTRAMUSCULARLY ONCE A MONTH Active nitroglycerin 0.4 mg 1 tab(s) sublingual ly every 5 minutes prn for 30 days Active furosemide 40 mg 1/2 tab orally once a day for 30 days 12/31/2023 Active omeprazole 20 mg 2 caps orally once a day for 90 days Active potassium chloride 10 mEq 1 cap(s) orall y once a day for 90 days Active Flomax 0.4MG 1 capsule orally onc e a day Active Tylenol 8 HR Arthritis Pain 650 mg 2 tab(s) orally every 8 hours for 3 day(s) 12/31/2023 Active traMADol 50 mg 1 tab(s) orally 3 ti mes a day prn 12/24/2023 Active isosorbide mononitrate 60 mg TAKE ONE TABLET BY MOUTH EVERY DAY orally once a day for 90 days Active magnesium oxide 400 mg 1 tab(s) orally once a day 12/31/2023 Active Urinozinc Prostate Health Complex Classic Therapeutic Multiple Vitamins with Minerals 1 cap(s) orally once a day Active Lipitor 40 mg 1 tab(s) orally once a day Active cyclobenzaprine 5 mg 1 tab(s) orally at HS for 2 weeks 08/16/2016 Active carvedilol 6.25 mg 1/2 tab in the morni ng and 1 tab in the evening orally 2 times a day Active nitrofurantoin macrocrystals-monohydrate 100 mg 1 cap(s) orally once at bedtime Active Xarelto 20 mg TAKE 1 TABLET ONE TI ME DAILY WITH FOOD Active ondansetron 4 mg 1 tab(s) orally ever y 8 hours as needed for nausea for 4 days 02/27/2024 Active oxyBUTYnin 10 mg/24 hr 1 tab(s) orally once a day Active Vitamin C 500 mg 2 cap orally once a day Active cefdinir 300 mg 1 cap(s) orally ever y 12 hours for 7 days 02/27/2024 Active Immunizations Vaccine Route Administration Date Status [...] Fluzone High Dose IM Intramuscular 03/07/2023 Administered Fluzone High Dose IM Intramuscular 03/04/2024 Administered Influenza (Fluzone)--Medicare only IM Intramuscular 03/23/2011 [...] 12/07/2019 Administered SHINGRIX IM Intramuscular 12/03/2023 Administered SHINGRIX IM Intramuscular 03/04/2024 Administered Problems Problem Type SNOMED Code ICD Code Onset Dates Problem Status W/U Status Risk Notes Problem 14817401 Hyperlipidemia, unspecified (E78.5) Active confirmed Problem 10125887 Essential hypertension (I10) Active confirmed Problem 824584768 B12 deficiency (E53.8) Active confirmed Problem 434966651 BMI 40.0-44.9, adult (Z68.41) Active confirmed Problem 597504279 BMI 39.0-39.9,adult (Z68.39) Active confirmed Problem 257319016 Hx pulmonary embolism (Z86.711) Active confirmed Problem 334398692 BMI 38.0-38.9,adult (Z68.38) Active confirmed Problem 73445525 Nephrolithiasis (N20.0) Active confirmed Problem 0975289045135 Coronary artery disease involving ho-chunk coronary artery of ho-chunk heart without angina pectoris (I25.10) Active confirmed Problem 445507963356699 Primary osteoarthritis of right knee (M17.11) Active confirmed Problem 870890508 BMI 36.0-36.9,adult (Z68.36) Active confirmed Problem 190398901 Benign non-nodul ar prostatic hyperplasia without lower urinary tract symptoms (N40.0) Active confirmed Problem 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 (Z79.01) Active confirmed Problem 81936166 Spinal stenosis, other region (M48.00) Active confirmed Problem 746898430 Arthropathy, low er leg (M12.9) Active confirmed Problem 41867536 NSTEMI (non-ST elevated myocardial infarction) (I21.4) Active confirmed Problem 642292824426098 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 curren t use of opiate analgesic (Z79.891) Active confirmed Problem 998599267545887 Pulmonary emboli sm and infarction (I26.99) Active confirmed Problem 993717237 History of coronary artery disease (Z86.79) Active confirmed Problem 589540226 Chronic diastoli c CHF (congestive heart failure) (I50.32) Active confirmed Problem 103432300098 Acute deep vein thrombosis (DVT) of right lower extremity, unspecified vein (I82.401) Active confirmed Problem 969405763 Smokeless tobacc o use (Z72.0) Active confirmed Problem 411821260 Acute hypoxemic respiratory failure (J96.01) Active confirmed Problem 660258260 Chronic hypoxemi c respiratory failure (J96.11) Active confirmed Problem 701210457 COVID (U07.1) Active confirmed Problem 446570673 S/P cholecystectomy (Z90.49) Active confirmed Vital Signs Heart Rate 80 /min 03/04/2024 Temperature 98 degrees Fahrenheit 03/04/2024 Blood pressure diastolic 72 mm Hg 03/04/2024 Oximetry 99%RA 2L 01/06/2024 Height 5 ft 9 in in 03/04/2024 Blood pressure systolic 116 mm Hg 03/04/2024 Weight 245 lbs 03/04/2024 BMI 36.18 kg/m2 03/04/2024 Encounters Encounter Location Date Provider Diagnosis [facility] [place] [address] [address] 04/05/2023 Steven Besson [facility] [place] [address] [facility] [address] [place] [address] 09/09/2023 Steven Besson [facility] [place] [address] [facility] [address] [place] [address] 11/12/2023 Steven Besson [facility] [place] [address] [address] 11/14/2023 Steven Besson S/P cholecystectomy Z90.49 [facility] [place] [address] [facility] [address] [place] [address] 12/20/2023 Steven Besson [facility] [place] [address] [facility] [address] [place] [address] 12/27/2023 Mali Karissa Arthropathy, lower l eg M12.9 [facility] [address] [facility] [address] [place] [address] 12/30/2023 Mali Karissa [facility] [place] [address] [place] [address] 12/30/2023 Jasmyne McNees Cholecystitis K81.9 [facility] [place] [address] [place] [address] 01/02/2024 Mali Karissa Microscopic hematuri a R31.29 and Acute abdominal pain R10.9 [facility] [place] [address] [place] [address] 01/02/2024 Steven Keating [facility] [place] [address] [place] [address] 01/02/2024 Mali Karissa [facility] [place] [address] [place] [address] 01/07/2024 Mali Karissa Syncope, unspecified syncope type R55 [facility] [address] [place] [address] 01/15/2024 Mali Karissa [facility] [place] [address] [place] [address] 02/19/2024 Mali Karissa [facility] [place] [address] [place] [address] 03/04/2024 Mali Karissa Essential hypertensi on I10 ; Chronic diastolic CHF (congestive heart failure) I50.32 ; History of coronary artery disease Z86.79 ; Chronic hypoxemic respiratory failure J96.11 ; Hx pulmonary embolism Z86.711 ; Encounter for immunization Z23 ; Recurrent UTI N39.0 ; Nephrolithiasis N20.0 ; Spinal stenosis, other region M48.00 ; Arthropathy, lower leg M12.9 ; detention current use of opiate analgesic Z79.891 and BMI 36.0-36.9,adult Z68.36 [facility] [place] [address] [place] [address] 01/22/2024 Mali Karissa History of pyelonephritis Z87.448 ; Chronic diastolic CHF (congestive heart failure) I50.32 and Recurrent syncope R55 [facility] [place] [address] [place] [address] 06/19/2023 Mali Karissa Essential hypertensi on I10 ; Chronic hypoxemic respiratory failure J96.11 ; Spinal stenosis, other region M48.00 ; Chronic diastolic CHF (congestive heart failure) I50.32 ; Pulmonary embolism and infarction I26.99 ; Arthropathy, lower leg M12.9 ; Bilious vomiting with nausea R11.14 and Encounter for immunization Z23 [facility] [address] [address] 09/04/2023 Mali Hancock Essential hypertensi on I10 ; Chronic hypoxemic respiratory failure J96.11 ; Spinal stenosis, other region M48.00 ; Chronic diastolic CHF (congestive heart failure) I50.32 ; Pulmonary embolism and infarction I26.99 ; Arthropathy, lower leg M12.9 and Bilious vomiting with nausea R11.14 [facility] [address] [address] 11/13/2023 Mali Karissa S/P cholecystectomy Z90.49 ; Essential hypertension I10 ; History of coronary artery disease Z86.79 ; Chronic diastolic CHF (congestive heart failure) I50.32 ; Chronic hypoxemic respiratory failure J96.11 ; Hx pulmonary embolism Z86.711 and [facility]09 [facility] [address] [address] 11/26/2023 Steven Keating Acute cholecystitis K81.0 ; Coronary artery disease involving ho-chunk coronary artery of ho-chunk heart without angina pectoris I25.10 ; Essential hypertension I10 and Hospital discharge follow-up Z09 [facility] [address] [facility] [address] [place] [address] 12/23/2023 Mali Karissa Dysuria R30.0 ; 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 ; Hospital discharge follow-up Z09 and History of sepsis Z86.19 [facility] [address] [place] [address] 01/02/2024 Mali Karissa Dysuria R30.0 ; Hist ory of pyelonephritis Z87.448 ; Chronic diastolic CHF (congestive heart failure) I50.32 ; Hospital discharge follow-up Z09 and History of sepsis Z86.19 [facility] [address] [address] 01/06/2024 Jasmyne McNees Syncope, unspecified syncope type R55 [facility] [address] [place] [address] 02/27/2024 Mali Hancock Dysuria R30.0 ; Acut e UTI N39.0 ; Hypotension, unspecified hypotension type I95.9 and Nausea without vomiting R11.0 [facility] [address] [address] 12/03/2023 Steven Keating Essential hypertensi on I10 ; Hyperlipidemia, unspecified E78.5 ; Coronary artery disease involving ho-chunk coronary artery of ho-chunk heart without angina pectoris I25.10 ; B12 deficiency E53.8 ; Myalgia M79.10 ; Routine medical exam Z00.00 ; Encounter for immunization Z23 and Encounter for immunization Z23 [facility] [address] [address] 10/29/2023 Steven Keating Abdominal pain, generalized R10.84 Assessments Encounter Date Diagnosis (ICD Code) Assessment [...] 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 He will continue follow-up with them as well as with orthopedics. Gallbladder ultrasound pending 09/04/2023 Essential hypertension (ICD-10 - I10) 09/04/2023 Chronic hypoxemic respiratory failure (ICD-10 - J96.11) reviewed chronic disease as noted and no changes recommended. discouraged use of meloxicam, continue PPI. consider gastric emptying and SBFT if HIDA is normal. following with Dr Dotson [facility] in [place] Continue cardiology ABBY CHADWICK on file and UTD, STUART UTD, using tramadol appropriately 10/29/2023 Abdominal pain, [...] agreeable, they will report to emergency department. 11/14/2023 S/P cholecystectomy (ICD-10 - Z90.49) 11/26/2023 Acute cholecystitis (ICD-10 - K81.0) Reviewed antibiotic choices. Augmentin seems reasonable. Reviewed hospital discharge notes. Finish up antibiotics. Check labs. 11/26/2023 Coronary artery disease involving ho-chunk coronary artery of ho-chunk heart without angina pectoris (ICD-10 - I25.10) Given the blood pressure is low we will stay on beta-avery for afterload reduction and heart disease protection. 12/03/2023 Hyperlipidemia, unspecified (ICD-10 - E78.5) Check lipids. I will review personally. 12/03/2023 Essential hypertension (ICD-10 - I10) Blood pressure under good control. No changes in plan. 12/27/2023 Arthropathy, lower leg (ICD-10 - M12.9) 01/02/2024 Dysuria (ICD-10 - R30.0) UA reveals small amount of blood in urine. Due to patient's dysuria, ordered urine culture for further work-up. Will follow up and intervene as needed. 01/02/2024 History of pyelonephritis (ICD-10 - Z87.448) Antibiotics are complete. UA is normal today, will culture given his recent nuju-bc-lpfe urinary tract infections. Encouraged him to stay off of his SGLT2 inhibitor. Blood pressure is marginally low today. Isosorbide, Coreg, Lasix could all be decreased but we will defer that to cardiology since he has an appointment later today. Encouraged him to continue good hydration and rest as needed. Labs drawn today as noted 03/04/2024 Essential hypertension (ICD-10 - I10) Well-controlled on lower dose antihypertensives . 03/04/2024 Chronic diastolic CHF (congestive heart failure) (ICD-10 - I50.32) No changes recommended today, he is euvolemic on exam. Cardiology is following 11/13/2023 Essential hypertension (ICD-10 - I10) 11/13/2023 [...] blood pressure are doing well without it. 02/27/2024 Dysuria (ICD-10 - R30.0) 02/27/2024 Acute UTI (ICD-10 - N39.0) Ceftriaxone given today IM. He will start cefdinir orally tomorrow. Encouraged him not to take his diuretic for the next 2 to 3 days until his blood pressure is back around his baseline. Strict return precautions reviewed. He will keep follow-up with urology as scheduled 01/22/2024 Chronic diastolic CHF (congestive heart failure) (ICD-10 - I50.32) euvolemic on exam today, continue lower dose lasix as noted and would not recommend resuming SGLT2I 01/22/2024 History of pyelonephritis (ICD-10 - Z87.448) following with URO, agree with plan. Cautioned about use of oxybutynin and possible anticholinergic side effects 01/07/2024 Syncope, unspecified syncope type (ICD-10 - R55) 01/06/2024 Syncope, unspecified syncope type (ICD-10 - R55) Sent to ED for evaluation 01/02/2024 Acute abdominal pain (ICD-10 - R10.9) 01/02/2024 Microscopic hematuria (ICD-10 - R31.29) 12/30/2023 Cholecystitis (ICD-10 - K81.9) 12/23/2023 Dysuria (ICD-10 - R30.0) UA reveals small amount of blood in urine. Due to patient's dysuria, ordered urine culture for further work-up. Will follow up and intervene as needed. 12/23/2023 Chronic diastolic CHF (congestive heart failure) (ICD-10 - I50.32) Prescibed diuretic PRN for leg edema. 02/27/2024 Hypotension, unspecified hypotension type (ICD-10 - I95.9) 12/23/2023 Hospital discharge follow-up (ICD-10 - Z09) 01/22/2024 Recurrent syncope (ICD-10 - R55) no episodes for at least 2-3 weeks, holter really unremarkable, improved with better blood pressures. monitor 11/13/2023 History of coronary artery disease (ICD-10 - Z86.79) 01/02/2024 Chronic diastolic CHF (congestive heart failure) (ICD-10 - I50.32) Prescibed diuretic PRN for leg edema. 03/04/2024 History of coronary artery disease (ICD-10 - Z86.79) Continue statin, aspirin 12/03/2023 Coronary artery disease involving ho-chunk coronary artery of ho-chunk heart without angina pectoris (ICD-10 - I25.10) On appropriate therapy, blood pressure good control, make sure lipid is at tight target 11/26/2023 Essential hypertension (ICD-10 - I10) Blood pressure slightly low, recommended holding Lasix and potassium and will check labs today. I will see him in 1 week to reevaluate further labs. 09/04/2023 Spinal stenosis, other region (ICD-10 - M48.00) 06/19/2023 Spinal stenosis, other region (ICD-10 - M48.00) 06/19/2023 Chronic diastolic CHF (congestive heart failure) (ICD-10 - I50.32) 11/26/2023 Hospital discharge follow-up (ICD-10 - Z09) Reviewed discharge summary, H&P and discharge medications personally. Personally reconciled medication. 01/02/2024 Hospital discharge follow-up (ICD-10 - Z09) 12/03/2023 B12 deficiency (ICD-10 - E53.8) Check B12 deficiency given his mild myalgia 09/04/2023 Chronic diastolic CHF (congestive heart failure) (ICD-10 - I50.32) 03/04/2024 Chronic hypoxemic respiratory failure (ICD-10 - J96.11) Continue supplemental O2 has failed previous attempts to discontinue this 11/13/2023 Chronic diastolic CHF (congestive heart failure) (ICD-10 - I50.32) 02/27/2024 Nausea without vomiting (ICD-10 - R11.0) 12/23/2023 History of sepsis (ICD-10 - Z86.19) 11/13/2023 Chronic hypoxemic respiratory failure (ICD-10 - J96.11) 12/03/2023 Myalgia (ICD-10 - M79.10) Discussed with patient that it would be better for him to stay off NSAIDs given heart disease and his kidney issues. Recheck kidney function. Recommended continue Voltaren use. As needed Tylenol use. He is also seeing his orthopedist next week, injections may be a good option for him to continue 03/04/2024 Hx pulmonary embolism (ICD-10 - Z86.711) Continue anticoagulation, cardiology is following as well 01/02/2024 History of sepsis (ICD-10 - Z86.19) 09/04/2023 Pulmonary embolism and infarction (ICD-10 - I26.99) 06/19/2023 Pulmonary embolism and infarction (ICD-10 - I26.99) 06/19/2023 Arthropathy, lower leg (ICD-10 - M12.9) 09/04/2023 Arthropathy, lower leg (ICD-10 - M12.9) 03/04/2024 Encounter for immunization (ICD-10 - Z23) 12/03/2023 Routine medical exam (ICD-10 - Z00.00) Medicare HRA reviewed. Immunizations will be updated. Up-to-date with colonoscopy. Non-smoker. 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 Excellent functional status, no falls. No concerning alcohol use. Uses seatbelt in a safe health habits 11/13/2023 Hx pulmonary embolism (ICD-10 - Z86.711) 11/13/2023 Hospital discharge follow-up (ICD-10 - Z09) 12/03/2023 Encounter for immunization (ICD-10 - Z23) 03/04/2024 Recurrent UTI (ICD-10 - N39.0) Complete antibiotics for his acute infection and then preventive antibiotics. Continue urology follow-up 06/19/2023 Bilious vomiting with nausea (ICD-10 - R11.14) 09/04/2023 Bilious vomiting with nausea (ICD-10 - R11.14) 06/19/2023 Encounter for immunization (ICD-10 - Z23) 12/03/2023 Encounter for immunization (ICD-10 - Z23) 03/04/2024 Nephrolithiasis (ICD-10 - N20.0) 03/04/2024 Spinal stenosis, other region (ICD-10 - M48.00) Remains on tramadol, poor candidate for nonsteroidals because of his other chronic disease. Controlled substance agreement is on file and [place] has been appropriate 03/04/2024 Arthropathy, lower leg (ICD-10 - M12.9) 03/04/2024 detention current use of opiate analgesic (ICD-10 - Z79.891) 03/04/2024 BMI 36.0-36.9,adult (ICD-10 - Z68.36) Weight has trended down significantly during his months of acute illness, healthy diet encouraged Plan Of Treatment Pending Test Test Name Order Date Ultrasound : Right Upper Quadrant 2023 N-PSA 02/14/2007 EKG : In House 11/17/2015 EKG : In House 06/30/2020 EKG : In House 09/26/2018 Holter Monitor : Event Recorder 01/07/20 24 Holter Monitor, 48 hour 01/07/2024 C-CBC 08/19/2017 C-CBC 05/29/2018 C-CBC 06/09/2020 C-CBC 11/21/2017 C-CBC 11/19/2016 C-CBC 05/19/2015 C-CMP 05/19/2015 C-CMP 02/16/2015 C-CMP 11/19/2016 C-CMP 05/17/2016 C-CMP 10/17/2012 C-CMP 11/21/2017 C-CMP 06/30/2020 C-CMP 06/09/2020 C-CMP 05/29/2018 C-CMP 08/19/2017 C-CMP 09/05/2020 C-LIPID PANEL 09/05/2020 C-LIPID PANEL 08/19/2017 C-LIPID PANEL 09/26/2018 C-LIPID PANEL 05/29/2018 C-LIPID PANEL 06/09/2020 C-LIPID PANEL 11/21/2017 C-LIPID PANEL 10/17/2012 C-LIPID PANEL 05/17/2016 C-LIPID PANEL 11/19/2016 C-LIPID PANEL 02/16/2015 C-LIPID PANEL 05/19/2015 C-TSH 05/19/2015 C-TSH 05/29/2018 C-FREE T4 05/19/2015 C-PSA 05/17/2016 C-PSA 11/21/2017 C-VITAMIN B12 05/29/2018 C-VITAMIN B12 11/21/2017 C-VITAMIN B12 06/09/2020 C-VITAMIN B12 09/26/2018 C-VITAMIN B12 08/19/2017 C-VITAMIN B12 09/05/2020 C-VITAMIN B12 05/19/2015 C-VITAMIN B12 11/19/2016 C-VITAMIN B12 05/17/2016 C-BNP 06/30/2020 C-VITAMIN D, 25-HYDROXY 05/29/2018 Urine Culture, Routine 06/11/2015 C-DRUG SCREEN 12 PANEL 09/05/2020 M-Complete Blood Count w/o Diff 08/06/19 M-Comprehensive Metabolic Panel 08/06/19 M-Liver Panel 11/14/2023 M-Basic Metabolic Panel 08/06/2022 M-Hemoglobin A1C 08/06/2022 M-Magnesium 08/06/2022 M-Lipid Panel 08/06/2022 M-Vitamin B12 08/06/2022 M-Vitamin B12 06/01/2021 M-Vitamin D 25 Hydroxy 08/06/2022 CBC (INCLUDES DIFF/PLT) (6399) TSH (899) 01/06/2024 VITAMIN D,25-OH,TOTAL,IA (07723) 024 COMP METABOLIC PANEL 01/06/2024 Insurance Providers Payer Name Payer Address Payer Phone Subscriber Number Group Number Insured Name Patient Relationship to Insured Coverage Start Date Coverage End Date [facility] MEDICARE [address] [address] [place] [phone] [id number] Nazario Mitchell Self - patient is the insured Medications Administered Medication Instructions Date of Administration Dosage Notes Ceftriaxone 500 02/27/2024 500 mg Kenalog-40 09/13/2021 40 mg Kenalog 12/13/2012 1 mL Kenalog 02/10/2014 1 Kenalog 02/16/2016 1 mL Medical (General) History Medical History History ICD Code hypertension hypercholestrolemia degenerative disc disease s/p surgery. O n tramadol coronary artery disease-sten ts. Evaluated by Dr Redman September 2016, negative GXT with EF 48% B12 def BPH Colonoscopy 2016, Dr Sullivan, Tubular Adenoma and Focal inflammation - Repeated August 2023 at [facility]-1 hyperplastic polyp [facility] 2018, chronic CAD, no additional int ervention needed [place] Palsy DVT and PE during COVID 19 infection Surgical History Surgery Date(Month/Year) back surgery 2012 appendectomy, open 2014 cardiac stents in 1997 colonoscopy 2016 zo cataract 2018 heart cath 09/2018 hernia repair 10/2018 Colonoscopy and EGD AUGUST 2023 gallbladder, drain tube 11/02/2023 Hospitalization History Reason Date(Month/Year) [facility]-kidney infection 12/2023 [facility]infection in kidneys 12/09 024 [facility] - Syncope, infection in blood 11/18- [facility] - Syncope 11/17-04/2024 [facility]- abdomen pain, infection 10/28- 24 DVT, PE, COVID 19 12/2021 all above surgeries
[2024-03-27 07:58] VITALS: BP 145/83; PULSE 68; RESP 18; TEMP 36.1; O2SAT 68; BMI 36.5
[2024-03-27] MEDS: LACTATED RINGERS 1000ML 1,000 ML 25 ML IV (08:29)
[2024-03-27] MEDS: LIDOCAINE 2% UROJET 10ML 10 ML (08:29)
--- NOTE | 2024-03-27 08:30 | HMH.PROCNOTE ---
[facility] Procedure Note Date: 03/27/24 Time: 08:31 Procedure Note:: Chart review: The patient is here for cystoscopy due to documented hematuria. His CT scan with infusion on 03/03 shows nonobstructing left nephrolithiasis. He has been to the emergency room because of low blood pressure and a urinary tract infection. I had him on Macrobid suppression but he is going to discontinue that at the present time. Patient still has voiding problems at home. Preop diagnosis hematuria postop diagnosis hematuria with prostate obstruction operative note: The patient was brought to the cystoscopy suite he was prepped and draped in the usual fashion. He underwent flexible cystoscopy. The anterior urethra was unremarkable. 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 He has a small median lobe that probably contributes significantly to his voiding dysfunction. The lateral lobes also meet in the midline but most of the obstruction is from the median lobe. The patient's bladder is mildly trabeculated without stone tumor hemorrhage or infection. The ureteral orifice ease are normal bilaterally with clear reflux of urine. The patient tolerated the procedure well. The patient can probably benefit from prostate surgery if he is refractory to medication.
[2024-03-27 08:34] VITALS: BP 136/84; PULSE 62; RESP 17; TEMP 36.6; O2SAT 97
[2024-03-27 08:37] VITALS: BP 136/84; PULSE 62; RESP 17; TEMP 36.6; O2SAT 97
[2024-03-27 13:41] LABS: Microscopic,Cath URINE MICROSCOPIC (MICROSCOPIC)
[2024-03-27 14:17] LABS: Appearance,Urine/Cath CLEAR (Clear); Bilirubin,Cath Negative (Negative); Blood, Urine/Cath Negative (Negative); Color,Urine/Cath YELLOW (Yellow); Glucose,Urine/Cath (UA) Negative (Negative); Ketones,Urine/Cath Negative (Negative); Leukocyte Esterase,Cath 1+ (Negative); Nitrate,Cath Negative (Negative); Protein,Urine/Cath Negative (Negative); Specific Gravity, Urine/Cath 1.015 (1.005-1.030); Urobilinogen,Cath 0.2 EU/dl (0.2)
[2024-03-27 14:42] LABS: Bacteria,Urine/Cath 4+ /lpf; RBC,Urine/Cath Occasional # /hpf (0-3); WBC,Urine/Cath TNTC #/hpf (0-3)
== END 2024-03-27 08:39 | disposition home or self-care (01) ==
LOC: OUTP 07:39
PROVIDERS: PCP Internal Medicine Adolescent Medicine; Visit Provider Urology
PROC: 0TJB8ZZ Inspection of Bladder, Via Natural or Artificial Opening Endoscopic (ICD-10-PCS; CPT 52000; principal; 2024-03-27 08:45)
DX: R31.9 Hematuria, unspecified (principal); N40.0 Benign prostatic hyperplasia without lower urinary tract symptoms; N20.0 Calculus of kidney
CPT/HCPCS: 52000; 81001; 87086; 87088; 87186; J7120

== ENCOUNTER 2024-04-06 17:01 | Outpatient (CLI) | payer MEDICARE, SELFPAY ==
[2024-04-06 16:10] LABS: Microscopic, Urine URINE MICROSCOPIC (MICROSCOPIC)
[2024-04-06 16:37] LABS: Appearance,Urine CLEAR (Clear); Bilirubin,Urine Negative (Negative); Blood, Urine Negative (Negative); Color,Urine YELLOW (Yellow); Glucose,Urine (UA) Negative (Negative); Ketones,Urine Negative (Negative); Leukocyte Esterase,Urine Negative (Negative); Nitrate,Urine Negative (Negative); Protein,Urine Negative (Negative); Specific Gravity, Urine 1.015 (1.005-1.030); Urobilinogen,Urine 0.2 EU/dl (0.2)
[2024-04-06 17:27] LABS: Bacteria,Urine Trace /lpf
== END 2024-04-06 23:59 | disposition home or self-care (01) ==
LOC: LAB.DROPOF 17:02
PROVIDERS: PCP Urology; Visit Provider Urology
DX: N39.0 Urinary tract infection, site not specified (principal); N40.1 Benign prostatic hyperplasia with lower urinary tract symptoms; R31.9 Hematuria, unspecified; N20.0 Calculus of kidney
CPT/HCPCS: 81001

== ENCOUNTER 2024-06-29 17:01 | Outpatient (CLI) | payer MEDICARE, SELFPAY ==
[2024-06-29 15:04] LABS: Microscopic, Urine URINE MICROSCOPIC (MICROSCOPIC)
[2024-06-29 17:54] LABS: Appearance,Urine CLEAR (Clear); Bilirubin,Urine Negative (Negative); Blood, Urine 2+ (Negative); Color,Urine YELLOW (Yellow); Glucose,Urine (UA) Negative (Negative); Ketones,Urine Negative (Negative); Leukocyte Esterase,Urine 2+ (Negative); Nitrate,Urine Negative (Negative); Protein,Urine Negative (Negative); Specific Gravity, Urine 1.025 (1.005-1.030); Urobilinogen,Urine 0.2 EU/dl (0.2)
[2024-06-29 18:25] LABS: Bacteria,Urine 1+ /lpf; Squamous Epithelial Cell,Urine Occasional #/hpf (0-5)
== END 2024-06-29 23:59 | disposition home or self-care (01) ==
LOC: LAB.DROPOF 17:01
PROVIDERS: PCP Urology; Visit Provider Urology
DX: N39.0 Urinary tract infection, site not specified (principal)
CPT/HCPCS: 81001; 87086; 87088; 87186

== ENCOUNTER 2024-07-08 12:27 | Outpatient (CLI) | payer MEDICARE, SELFPAY ==
--- NOTE | 2024-07-08 12:28 | US_ITS ---
FINAL REPORT CLINICAL HISTORY: UTI COMPARISON: None FINDINGS: ULTRASOUND BLADDER WITH POST VOID RESIDUAL Bladder volumes were estimated based on 3 dimensional measurements, pre- and postvoid. Prevoid bladder volume: 48 mls Postvoid bladder volume: 3 mls IMPRESSION: Estimated bladder volumes as above with negligible postvoid residual . Reviewed, Interpreted and Dictated by Chicho Zimmer MD Transcribed by Alejandra Baez Authenticated and [facility]
== END 2024-07-08 23:59 | disposition home or self-care (01) ==
LOC: RAD 12:28
PROVIDERS: PCP Internal Medicine Adolescent Medicine; Visit Provider Urology
DX: N39.0 Urinary tract infection, site not specified (principal)
CPT/HCPCS: 76857

== ENCOUNTER 2024-07-20 12:00 | Outpatient (CLI) | payer MEDICARE, SELFPAY ==
[2024-07-20 15:12] LABS: Microscopic, Urine URINE MICROSCOPIC (MICROSCOPIC)
[2024-07-20 15:24] LABS: Appearance,Urine CLEAR (Clear); Bilirubin,Urine Negative (Negative); Blood, Urine 2+ (Negative); Color,Urine YELLOW (Yellow); Glucose,Urine (UA) Negative (Negative); Ketones,Urine Negative (Negative); Leukocyte Esterase,Urine 2+ (Negative); Nitrate,Urine Negative (Negative); Protein,Urine Negative (Negative); Urobilinogen,Urine 0.2 EU/dl (0.2)
[2024-07-20 16:46] LABS: Bacteria,Urine 1+ /lpf; Mucus,Urine 1+ /lpf
== END 2024-07-20 23:59 | disposition home or self-care (01) ==
LOC: LAB.DROPOF 07-21 10:30
PROVIDERS: PCP Urology; Visit Provider Urology
DX: N39.0 Urinary tract infection, site not specified (principal)
CPT/HCPCS: 81001; 87086